=== PATIENT | female | born 1955 | race Two or more races ===

== ENCOUNTER 2024-10-24 11:37 | Inpatient (IN) | payer MEDICARE, OTHER ==
[~2024-10-24] VITALS: Ht 165.1 cm; Wt 56.3 kg
--- NOTE | 2024-10-24 11:51 | ED.PDOC ---
History of Present Illness HPI Comments 68-year-old female who comes in with chief complaint of infection to the left foot. The patient states that the pain has been worsening and the ulceration has been worsening over the past two weeks. There has been no nausea, vomiting or diarrhea. 911 was called and the patient was transported to our facility. EN route, the patient received Tylenol 1 g IV piggyback for the pain. She states that approximately three weeks ago she accidentally scraped her left foot and the wound has been worsening. She denies being a diabetic. Chief Complaint: Wound Check Time Seen by MD: 11:43 Reviewed Notes: Nurses Notes, Sprayer Insecticide Notes, Medications, Allergies (No allergies to medications) Allergies: Coded Allergies: NO KNOWN ALLERGIES (Unverified , 10/24/24) Information Source: Patient, Emergency Med Personnel Mode of Arrival: EMS Severity: Moderate Timing: Weeks Duration: Since onset Prehospital treatment: IVF Location: Left foot infected ulceration and pain Associated signs and symptoms No shortness a breath or fever Past Medical History PAST MEDICAL HISTORY: COPD, HTN Surgical History: Hysterectomy Surgical History (Other): 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 OFFICE ASSOCIATE History: Denies all OFFICE ASSOCIATE Hx Family History Family History: Family hx of HTN Family History (Other): Pulmonary embolism Social History Smoker: Other (VAPE) Alcohol: Occasionally Drugs: Marijuana Lives In: Home Constitutional: denies: chills, diaphoresis, fatigue, fever, malaise, sweats, weakness, others EENTM: denies: blurred vision, double vision, ear bleeding, ear discharge, ear drainage, ear pain, ear ringing, eye pain, eye redness, hearing loss, mouth pain, mouth swelling, nasal discharge, nose bleeding, nose congestion, nose pain, photophobia, tearing, throat pain, throat swelling, voice changes, others Respiratory: denies: cough, hemoptysis, orthopnea, SOB at rest, shortness of breath, SOB with excertion, stridor, wheezing, others Cardiovascular: denies: chest pain, dizzy spells, diaphoresis, Dyspnea on exertion, edema, irregular heart beat, left arm pain, lightheadedness, palpitations, PND, syncope, others Gastrointestinal: denies: abdomen distended, abdominal pain, blood streaked bowels, constipated, diarrhea, dysphagia, difficulty swallowing, hematemesis, melena, nausea, poor appetite, poor fluid intake, rectal bleeding, rectal pain, vomiting, others Genitourinary: denies: abnormal vagina bleeding, burning, dyspareunia, dysuria, flank pain, frequency, hematuria, incontinence, pain, , vagina discharge, urgency, others Neurological: denies: dizziness, fainting, headache, left sided numbness, left sided weakness, numbness, paresthesia, pre-existing deficit, right sided numbness, right sided weakness, seizure, speech problems, tingling, tremors, weakness, others Musculoskeletal: reports: others (Left foot infection); denies: back pain, gout, joint pain, joint swelling, muscle pain, muscle stiffness, neck pain Integumetry: denies: bruises, change in color, change in hair/nails, dryness, laceration, lesions, lumps, rash, wounds, others Allergic/Immunocompromised: denies: Difficulty Healing, Frequent Infections, Hives, Itching, others Hematologic/Lymphatic: denies: anemia, blood clots, easy bleeding, easy bruising, swollen glands, others Endocrine: denies: excessive hunger, excessive sweating, excessive thirst, excessive urination, flushing, intolerance to cold, intolerance to heat, unexplained weight gain, unexplained weight loss, others Psychiatric: denies: anxiety, bipolar disorder, depression, hopeless, panic disorder, schizophrenia, sleepless, suicidal, others Physical Exam General Appearance: Moderate Distress HEENT: Normal ENT Inspection, Pharynx Normal, TMs Normal Neck: Full Range of Motion, Non-Tender, Normal, Normal Inspection Respiratory: Chest Non-Tender, Lungs Clear, No Accessory Muscle Use, No Respiratory Distress, Normal Breath Sounds Cardiovascular: No Edema, No JVD, No Murmur, No Gallop, Normal Peripheral Pulses, Regular Rate/Rhythm Breast Exam: Deferred Gastrointestinal: No Organomegaly, Non Tender, No Pulsatile Mass, Normal Bowel Sounds, Soft Genitalia: Deferred Pelvic: Deferred Rectal: Deferred Extremities: No calf tenderness, Normal capillary refill, No pedal edema, Other (Left foot open ulceration to the dorsum) Musculoskeletal : Apperance: Normal Neurologic: Alert, 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 Was a procedure done?: No Differential Dx Considerations may include: Abscess, osteomyelitis, cellulitis X-Ray, Labs, Meds, VS Vital Signs Date Time Temp Pulse Resp B/P (MAP) Pulse Ox O2 Delivery O2 Flow Rate FiO2 10/24/24 11:54 Room Air* 0 21 10/24/24 11:47 98.6 84 16 187/95 (125) 96 98.6 Lab Test 10/24/24 12:02 Range/Units White Blood Count 8.3 4.4-10.8 10^3/uL Red Blood Count 3.78 L 4.0-5.20 10^6/uL Hemoglobin 11.9 L 12.2-16.2 g/dL Hematocrit 34.0 L 36.0-46.0 % Mean Corpuscular Volume 89.9 80.0-100.0 fL Mean Corpuscular Hemoglobin 31.6 28.0-32.0 pg Mean Corpuscular Hemoglobin Concent 35.1 32.0-36.0 g/dL Red Cell Distribution Width 12.7 11.8-14.3 % Platelet Count 475 H 140-450 10^3/uL Mean Platelet Volume 6.3 L 6.9-10.8 fL Neutrophils (%) (Auto) 78.2 37.0-80.0 % Lymphocytes (%) (Auto) 11.7 10.0-50.0 % Monocytes (%) (Auto) 6.6 0.0-12.0 % Eosinophils (%) (Auto) 3.0 0.0-7.0 % Basophils (%) (Auto) 0.5 0.0-2.0 % Neutrophils # (Auto) 6.5 1.6-8.6 10 ^3/uL Lymphocytes # (Auto) 1.0 0.4-5.4 10 ^3/uL Monocytes # (Auto) 0.5 0-1.3 10 ^3/uL Eosinophils # (Auto) 0.3 0-0.8 10 ^3/uL Basophils # (Auto) 0 0-0.2 10 ^3/uL Nucleated Red Blood Cells 0.0 % Erythrocyte Sedimentation Rate 90 H 0-20 mm/hr Sodium Level 135 L 136-145 mmol/L Potassium Level 4.1 3.5-5.1 mmol/L Chloride Level 104 98-107 mmol/L Carbon Dioxide Level 26 20-31 mmol/L Anion Gap 5 5-15 Blood Urea Nitrogen 17 9-23 mg/dL Creatinine 0.64 0.550-1.02 mg/dL Glomerular Filtration Rate Calc 97 >90 mL/min BUN/Creatinine Ratio 26.6 H 10.0-20.0 Serum Glucose 99 74-106 mg/dL Calcium Level 10.7 H 8.7-10.4 mg/dL IV Hep-Lock was established. Left foot cat scan was done which shows: IMPRESSION: Diffuse subcutaneous soft-tissue edema and swelling; possibly cellulitis. The patient's CBC shows mild anemia with a hemoglobin of 11.9 The chemistry panel is within normal limits The ESR is 90 which significantly elevated The patient was started on clindamycin The patient was being admitted to the hospitalist A wound consult was also ordered on this patient. Images Reviewed?: Images reviewed and evaluated by me Time of 1ST Reevaluation: 11:52 Reevaluation 1ST: Unchanged Patient Education/Counseling: Diagnosis, Treatment, Prognosis Family Education/Counseling: No Family Present Departure 1 Departure Time of Disposition: 13:52 Impression: Primary Impression: Cellulitis of left foot Additional Impression: Nonhealing skin ulcer Qualified Codes: L98.499 - Non-pressure chronic ulcer of skin of other sites with unspecified severity Disposition: ADMITTED INPATIENT Admit to: Med Surg Condition: Fair Critical Care Note Critical Care Time?: No Stability Stability form required: Yes Unstable for transfer: ED Physician Assesment (Clinical assesment) Heart Score Heart Score: Heart Score Response (Comments) Value History N/A 0 EKG N/A 0 Age N/A 0 Risk Factors N/A 0 Troponin N/A 0 Total 0 I personally scribed for ТАТЬЯНА MALONEY MD ([email or web address]) on 10/24/24 at 13:26. Electronically submitted by Chivo Mo [email or web address]). ТАТЬЯНА MALONEY MD Oct 24, 2024 11:51
[2024-10-24 12:15] LABS: Neutrophils # (auto) 6.5 10 ^3/uL (1.6-8.6); Neutrophils % (auto) 78.2 % (37.0-80.0)
[2024-10-24 12:17] LABS: Basophils # (auto) 0 10 ^3/uL (0-0.2); Basophils % (auto) 0.5 % (0.0-2.0); Eosinophils # (auto) 0.3 10 ^3/uL (0-0.8); Hemoglobin 11.9 g/dL (12.2-16.2); Lymphocytes % (auto) 11.7 % (10.0-50.0); Mean Corpuscular Hemoglobin 31.6 pg (28.0-32.0); Mean Corpuscular Hgb Conc. 35.1 g/dL (32.0-36.0); Mean Corpuscular Volume 89.9 fL (80.0-100.0); Monocytes # (auto) 0.5 10 ^3/uL (0-1.3); Monocytes % (auto) 6.6 % (0.0-12.0); Platelet Count (auto) 475 10^3/uL (140-450); Red Blood Cells 3.78 10^6/uL (4.0-5.20); Red Cell Distribution Width 12.7 % (11.8-14.3); White Blood Cell 8.3 10^3/uL (4.4-10.8)
[2024-10-24 12:18] LABS: Chloride 104 mmol/L (98-107); Potassium 4.1 mmol/L (3.5-5.1)
[2024-10-24 12:19] LABS: Anion Gap 5 (5-15); Carbon Dioxide 26 mmol/L (20-31)
[2024-10-24 12:24] LABS: BUN/Creatinine Ratio 26.6 (10.0-20.0); Blood Urea Nitrogen 17 mg/dL (9-23); Glucose 99 mg/dL (74-106)
[2024-10-24 12:36] LABS: Calcium 10.7 mg/dL (8.7-10.4); Sodium 135 mmol/L (136-145)
[2024-10-24 12:50] LABS: Erythrocyte Sedimentation Rate 90 mm/hr (0-20)
--- NOTE | 2024-10-24 13:36 | DVH ---
EXAMINATION: CT CT L FOOT WO CONTRAST INDICATION: infection COMPARISON: None TECHNIQUE: CT of the left foot was performed without contrast. Volume transverse images were obtained reconstructed in multiple planes using bone and soft tissue algorithms. Radiation Dose Information: CT Dose: CTDI volume is 7.75 mGy. Dose-length product is 176.93 mGy*cm FINDINGS: The alignment is normal. The joint spaces are normal. There is no fracture, dislocation, or focal osseous lesions. There are no joint effusions. Diffuse subcutaneous soft-tissue edema and swelling. IMPRESSION: Diffuse subcutaneous soft-tissue edema and swelling; possibly cellulitis.
[2024-10-24] MEDS: SODIUM CHLORIDE 0.9% 500 ML IV ONE ×2 (15:39→16:45)
[2024-10-24] MEDS: MORPHINE SULFATE 4 MG/ML SYR/VIAL IV ONE (15:43)
[2024-10-24] MEDS: ONDANSETRON HCL 4 MG/2 ML VIAL IV ONE (15:43)
[2024-10-24] MEDS: CLINDAMYCIN 600MG IV 50 ML IV ONE (15:43)
[2024-10-24] MEDS ORDERED: DOCUSATE SOD 100 MG CAP PO PRN (16:45)
--- NOTE | 2024-10-24 16:50 | DVHHP2 ---
History of Present Illness Reason for Visit: Foot wound History of Present Illness Jelly Negro is a 68-year-old female with past medical history of hypertension, hyperlipidemia, and bowel resection surgery with colostomy, who came in for wound to her left foot. Patient states the wound began a couple weeks ago with a blister that rubbed on her shoe and opened up. She did a Tele health appointment today due to the wound worsening, and was told to go to the hospital. the left foot is swollen, red, and has a lateral open wound covered with slough. Past Surgical History: Hysterectomy, Other (bowel resection with colostomy) Smoke: <1 pack per day (vap) ALCOHOL: occassional Drugs: Marijuana Lives: with Family Domestic Violence: Neg Review of Systems Constitutional: No: Fever, Chills, Sweats, Weakness, Malaise, Other Eyes: No: Pain, Vision change, Conjunctivae inflammation, Eyelid inflammation, Other, Redness ENT: No: Ear pain, Ear discharge, Nose pain, Nose discharge, Nose congestion, Mouth pain, Mouth swelling, Throat pain, Throat swelling, Other Respiratory: No: Cough, Dry, Shortness of breath, SOB with excertion, Wheezing, Hemoptysis, Pleuritic Pain, Sputum, Wheezing, Other Gastrointestinal: No: Nausea, Vomiting, Abdominal Pain, Diarrhea, Constipation, Melena, Hematochezia, Other Genitourinary: No Dysuria, No Frequency, No Incontinence, No Hematuria, No Retention, No Other Musculoskeletal: foot pain (left); No: other, neck pain, shoulder pain, arm pain, back pain, hand pain, leg pain Skin: Other (left foot swelling, redness, open wound with slough); No: Rash, Lesions, Jaundice, Bruising Neurological: No: Weakness, Numbness, Incoordination, Change in speech, Confusion, Seizures, Other Allergies: Coded Allergies: NO KNOWN ALLERGIES (Unverified , 10/24/24) Exam Vital Signs Vital Signs Date Time Temp Pulse Resp B/P (MAP) Pulse Ox O2 Delivery O2 Flow Rate FiO2 10/24/24 11:54 Room Air* 0 21 10/24/24 11:47 98.6 84 16 187/95 (125) 96 98.6 General Appearance: Alert, Oriented X3, Cooperative, mild distress HEENT: Atraumatic, PERRLA, Mucous membr. moist/pink Respiratory: Clear to auscultation, Normal air movement Cardiovascular: Regular rate, Normal S1, Normal S2, No murmurs Abdominal: Normal bowel sounds, Soft, No tenderness, No hepatospenomegaly Extremities: No clubbing, No cyanosis, Other (left foot swelling, redness, open wound with slough) Skin: No rashes Neuro: Normal gait, Normal speech Psych/Mental Status: Mental status NL, Mood NL Labs/Xrays Labs Test 10/24/24 12:02 Range/Units White Blood Count 8.3 4.4-10.8 10^3/uL Red Blood Count 3.78 L 4.0-5.20 10^6/uL Hemoglobin 11.9 L 12.2-16.2 g/dL Hematocrit 34.0 L 36.0-46.0 % Mean Corpuscular Volume 89.9 80.0-100.0 fL Mean Corpuscular Hemoglobin 31.6 28.0-32.0 pg Mean Corpuscular Hemoglobin Concent 35.1 32.0-36.0 g/dL Red Cell Distribution Width 12.7 11.8-14.3 % Platelet Count 475 H 140-450 10^3/uL Mean Platelet Volume 6.3 L 6.9-10.8 fL Neutrophils (%) (Auto) 78.2 37.0-80.0 % Lymphocytes (%) (Auto) 11.7 10.0-50.0 % Monocytes (%) (Auto) 6.6 0.0-12.0 % Eosinophils (%) (Auto) 3.0 0.0-7.0 % Basophils (%) (Auto) 0.5 0.0-2.0 % Neutrophils # (Auto) 6.5 1.6-8.6 10 ^3/uL Lymphocytes # (Auto) 1.0 0.4-5.4 10 ^3/uL Monocytes # (Auto) 0.5 0-1.3 10 ^3/uL Eosinophils # (Auto) 0.3 0-0.8 10 ^3/uL Basophils # (Auto) 0 0-0.2 10 ^3/uL Nucleated Red Blood Cells 0.0 % Erythrocyte Sedimentation Rate 90 H 0-20 mm/hr Sodium Level 135 L 136-145 mmol/L Potassium Level 4.1 3.5-5.1 mmol/L Chloride Level 104 98-107 mmol/L Carbon Dioxide Level 26 20-31 mmol/L Anion Gap 5 5-15 Blood Urea Nitrogen 17 9-23 mg/dL Creatinine 0.64 0.550-1.02 mg/dL Glomerular Filtration Rate Calc 97 >90 mL/min BUN/Creatinine Ratio 26.6 H 10.0-20.0 Serum Glucose 99 74-106 mg/dL Calcium Level 10.7 H 8.7-10.4 mg/dL EXAMINATION: CT CT L FOOT WO CONTRAST FINDINGS: The alignment is normal. The joint spaces are normal. There is no fracture, dislocation, or focal osseous lesions. There are no joint effusions. Diffuse subcutaneous soft-tissue edema and swelling. IMPRESSION: Diffuse subcutaneous soft-tissue edema and swelling; possibly cellulitis. Assessment/Plan Assessment/Plan Assessment: Cellulitis of left foot, R/O osteomyelitis, COPD, Hypertension, Plan: Admit to Med-Surg, Podiatry consult, Wound care consult, Wound culture, IV antibiotics, IV hydration, MRI foot, Plan discussed with: Patient Date of Service: Oct 24, 2024 Billing Provider: DEEPIKA GAN Common Visit Codes: [id number] INP/OBS CARE (MOD) DEEPIKA GAN Oct 24, 2024 16:50
--- NOTE | 2024-10-24 17:51 | DVH ---
EXAM: MRI MRI L FOOT WO CONTRAST; DATE: 10/24/2024 05:12 PM HISTORY: R/O OM VS ABSCESS COMPARISON: CT CT L FOOT WO CONTRAST on DOS: 10/24/24 TECHNIQUE: Multiplanar, multisequence MRI was performed. FINDINGS: There is significant soft tissue edema and swelling involving the ankle and lateral aspect of the arjun t Bones are severely osteopenic. There are sclerotic changes involving the talus which are abnormal but there are no destructive changes. There appears to be a soft tissue ulcer or wound adjacent to the great toe. IMPRESSION: 1. Significant cellulitis with sclerosis involving the talus there is a large soft tissue wound adjac ent to the great toe. I bones are generally osteopenic. I would recommend follow-up MRI examination to eliminate the possibility osteomyelitis.
[2024-10-24] MEDS: HYDROcodone-ACET 5/325MG TAB PO PRN (21:28)
[2024-10-24 21:46] VITALS: RESP 18; O2SAT 98
[2024-10-24] MEDS: CLINDAMYCIN 600MG IV 50 ML IV SCH (21:53)
[2024-10-24] MEDS: hydrALAZINE HCL 20 MG/ML VL IV PRN (22:26)
[2024-10-25 02:30] VITALS: RESP 10; O2SAT 98
[2024-10-25] MEDS: ONDANSETRON HCL 4 MG/2 ML VIAL IV PRN (03:45)
[2024-10-25] MEDS: MORPHINE SULFATE INJ 2 MG/ml SYRG IV PRN (03:45)
[2024-10-25] MEDS: ACETAMINOPHEN 325 MG TAB PO PRN (03:46)
[2024-10-25 06:07] LABS: Basophils # (auto) 0 10 ^3/uL (0-0.2); Basophils % (auto) 0.3 % (0.0-2.0); Eosinophils # (auto) 0.4 10 ^3/uL (0-0.8); Eosinophils % (auto) 4.5 % (0.0-7.0); Hematocrit 31.2 % (36.0-46.0); Hemoglobin 10.3 g/dL (12.2-16.2); Lymphocytes # (auto) 1.5 10 ^3/uL (0.4-5.4); Lymphocytes % (auto) 18.4 % (10.0-50.0); Mean Corpuscular Volume 90.9 fL (80.0-100.0); Monocytes # (auto) 0.7 10 ^3/uL (0-1.3); Monocytes % (auto) 8.5 % (0.0-12.0); Neutrophils # (auto) 5.4 10 ^3/uL (1.6-8.6); Neutrophils % (auto) 68.3 % (37.0-80.0); Platelet Count (auto) 406 10^3/uL (140-450); Red Blood Cells 3.43 10^6/uL (4.0-5.20); Red Cell Distribution Width 12.9 % (11.8-14.3); White Blood Cell 7.9 10^3/uL (4.4-10.8)
[2024-10-25 06:15] LABS: Albumin 3.9 g/dL (3.2-4.8); Alkaline Phosphatase 60 U/L (46-116); Anion Gap 6 (5-15); Bilirubin, Total 0.4 mg/dL (0.2-1.0); Blood Urea Nitrogen 15 mg/dL (9-23); Calcium 9.9 mg/dL (8.7-10.4); Carbon Dioxide 24 mmol/L (20-31); Glucose 95 mg/dL (74-106); Sodium 138 mmol/L (136-145); Total Protein 6.5 g/dL (5.7-8.2)
[2024-10-25 06:16] LABS: Alanine Aminotransferase < 9 U/L (7-40); Aspartate Aminotransferase < 8 U/L (13-40); Chloride 108 mmol/L (98-107)
[2024-10-25 08:12] LABS: Magnesium 1.8 mg/dL (1.6-2.6)
[2024-10-25] MEDS: POTASSIUM CHL 20 Meq TABLET PO ONE (08:16)
[2024-10-25 08:29] LABS: INR 1.08 (0.9-1.15); Partial Thromboplastin Time 31.5 SEC (24.5-34.5); Prothrombin Time 11.4 sec (9.3-11.8)
[2024-10-25 08:54] LABS: % Iron Saturation 11.7 % (15-50)
[2024-10-25 08:56] LABS: Urine Bacteria FEW /hpf (None Seen); Urine Blood 1+ /uL (Negative); Urine Clarity Turbid (Clear); Urine Color Colorless (Yellow); Urine Protein, UAD Negative (Negative); Urine Specific Gravity 1.012 (1.001-1.035); Urine Squamous Epithelial Cell None Seen /hpf (<5); Urine Urobilinogen Normal (Negative); Urine WBC 415 /HPF (0-5); Urine WBC Clumps PRESENT /hpf (None Seen); Urine pH 6.5 (5.0-9.0)
[2024-10-25] MEDS: FLORASTOR (S. BOULARDII) 250 MG CAP PO SCH (10:51)
--- NOTE | 2024-10-25 12:12 | DVH ---
Bilateral lower extremity venous duplex Clinical History: Pain dvt Comparison: None Technique: Duplex Doppler evaluation of the deep venous systems of both lower extremities from the common femora l veins to the popliteal veins including color Doppler and spectral/pulsed waveform analysis was perf ormed. Findings: RIGHT SIDE: The common femoral vein demonstrates appropriate compressibility and waveform variability. There is compressibility/patency of the great saphenous vein at the proximal thigh. The femoral vein demonstrates appropriate compressibility and waveform variability. The deep femoral vein demonstrates appropriate compressibility and waveform variability. The popliteal vein demonstrates appropriate compressibility and waveform variability. There is normal compressibility at the tibioperoneal trunk. LEFT SIDE: The common femoral vein demonstrates appropriate compressibility and waveform variability. There is compressibility/patency of the great saphenous vein at the proximal thigh. The femoral vein demonstrates appropriate compressibility and waveform variability. The deep femoral vein demonstrates appropriate compressibility and waveform variability. The popliteal vein demonstrates appropriate compressibility and waveform variability. There is normal compressibility at the tibioperoneal trunk. Impression: No right or left femoropopliteal venous thrombosis.
--- NOTE | 2024-10-25 14:18 | DVHINCON2 ---
Date Seen: Oct 25, 2024 Reason for Consultation Left foot wound History of Present Illness Jelly Negro is a 68-year-old female with past medical history of hypertension, hyperlipidemia, and bowel resection surgery with colostomy, who came in for wound to her left foot. Patient states the wound began a couple wee ks ago with a blister that rubbed on her shoe and opened up. She did a [facility] health appointment today due to the wound worsening, and was told to go to the hospital. the left foot is swollen, red, and has a lateral open wound covered with slough. Past Medical History See H&P Past Surgical History See H&P Allergies: Coded Allergies: NO KNOWN ALLERGIES (Unverified , 10/24/24) Current Medications Current Medications Medications (Trade) Dose Ordered Sig/Tony Route PRN Reason Start Time Stop Time Status Last Admin Acetaminophen/ Hydrocodone Bitart ([place] 5/325MG Tab) 1 tab Q4HP PRN PO MODERATE PAIN (4-6 PAIN SCALE) 10/24/24 16:45 10/25/24 08:26 Ondansetron HCl (Zofran) 4 mg Q4HP PRN IV NAUSEA / VOMITING 10/24/24 16:45 10/25/24 03:45 Docusate Sodium (Colace Capsule) 100 mg BIDPRN PRN PO FOR CONSTIPATION 10/24/24 16:45 Acetaminophen (Tylenol Tablet) 650 mg Q6HP PRN PO PAIN SCALE 1-3 OR TEMP>100.4 10/24/24 16:45 10/25/24 03:46 Clindamycin Phosphate 50 ml @ 50 mls/hr Q8HR IV 10/24/24 22:00 10/24/24 21:53 Hydralazine HCl (Apresoline Injection) 10 mg Q6HP PRN IV SBP>150 10/24/24 21:45 10/25/24 07:52 DC 10/25/24 02:09 Morphine Sulfate 2 mg Q6HPRN PRN IV SEVERE PAIN (7-10 PAIN SCALE) 10/25/24 03:00 10/25/24 11:06 Saccharomyces Boulardii (Florastor) 250 mg DAILY PO 10/25/24 10:00 10/25/24 10:51 Hydralazine HCl (Apresoline Injection) 10 mg Q6HP PRN IV SBP>160 10/25/24 08:00 Vital Signs Vital Signs Date Time Temp Pulse Resp B/P (MAP) Pulse Ox O2 Delivery O2 Flow Rate FiO2 10/25/24 12:00 84 17 161/77 10/25/24 11:00 99 10/25/24 08:00 Room Air* 0 21 10/25/24 08:00 97.7 97.7 Physical Exam Dermatological: Skin is dry with mild erythema and some maceration around the wound site No gross deformities noted Mild non-pitting edema present bilaterally Wound: Location: Lateral foot. Measures: 5 cm in length, 4 cm in width, and 0.5 cm in depth. Depth: Full thickness Base: Mix of granulation/slough Drainage: None Odor: None Periwound: Intact Vascular: Dorsalis pedis and posterior tibial pulses are 1+ bilaterally Capillary refill is under 2 seconds Skin temperature is warm bilaterally Neurologic: Protective sensation is absent on the plantar forefoot bilaterally Monofilament testing reveals decreased sensation in multiple plantar sites Musculoskeletal: Range of motion at the ankle and MTP joints is within normal limits. Strength is 5/5 in all tested muscle groups. Gait is antalgic due to offloading of the affected limb. Labs/Diagnostic Data Labs Test 10/25/24 08:15 10/25/24 05:17 10/24/24 17:56 10/24/24 12:02 Range/Units Urine Color Colorless Yellow Urine Clarity Turbid H Clear Urine pH 6.5 5.0-9.0 Urine Specific [place] 1.012 1.001-1.035 Urine Protein Negative Negative Urine Ketones Negative Negative Urine Blood 1+ H Negative /uL Urine Nitrite 2+ H Negative Urine Bilirubin Negative Negative Urine Urobilinogen Normal Negative mg/dL Urine Leukocyte Esterase 3+ Negative /uL Urine RBC 36 0 - 4 /hpf Urine WBC Clumps Present None Seen /hpf Urine Microscopic WBC 415 H 0-5 /HPF Urine Squamous Epithelial Cells None seen <5 /hpf Urine Bacteria Few H None Seen /hpf Urine Glucose Normal Normal mg/dL White Blood Count 7.9 4.4-10.8 10^3/uL Red Blood Count 3.43 L 4.0-5.20 10^6/uL Hemoglobin 10.3 L 12.2-16.2 g/dL Hematocrit 31.2 L 36.0-46.0 % Mean Corpuscular Volume 90.9 80.0-100.0 fL Mean Corpuscular Hemoglobin 30.0 28.0-32.0 pg Mean Corpuscular Hemoglobin Concent 33.0 32.0-36.0 g/dL Red Cell Distribution Width 12.9 11.8-14.3 % Platelet Count 406 140-450 10^3/uL Mean Platelet Volume 6.5 L 6.9-10.8 fL Neutrophils (%) (Auto) 68.3 37.0-80.0 % Lymphocytes (%) (Auto) 18.4 10.0-50.0 % Monocytes (%) (Auto) 8.5 0.0-12.0 % Eosinophils (%) (Auto) 4.5 0.0-7.0 % Basophils (%) (Auto) 0.3 0.0-2.0 % Neutrophils # (Auto) 5.4 1.6-8.6 10 ^3/uL Lymphocytes # (Auto) 1.5 0.4-5.4 10 ^3/uL Monocytes # (Auto) 0.7 0-1.3 10 ^3/uL Eosinophils # (Auto) 0.4 0-0.8 10 ^3/uL Basophils # (Auto) 0 0-0.2 10 ^3/uL Nucleated Red Blood Cells 0.0 % Prothrombin Time 11.4 9.3-11.8 sec Prothrombin Time INR 1.08 0.9-1.15 Activated Partial Thromboplast Time 31.5 24.5-34.5 SEC Sodium Level 138 136-145 mmol/L Potassium Level 3.0 L 3.5-5.1 mmol/L Chloride Level 108 H 98-107 mmol/L Carbon Dioxide Level 24 20-31 mmol/L Anion Gap 6 5-15 Blood Urea Nitrogen 15 9-23 mg/dL Creatinine 0.60 0.550-1.02 mg/dL Glomerular Filtration Rate Calc 98 >90 mL/min BUN/Creatinine Ratio 25.0 H 10.0-20.0 Serum Glucose 95 74-106 mg/dL Hemoglobin A1c 5.4 <5.7 % A1C Calcium Level 9.9 8.7-10.4 mg/dL Magnesium Level 1.8 1.6-2.6 mg/dL Iron Level 23 L 50-170 ug/dL Total Iron Binding Capacity 196 L 250-425 ug/dL Percent Iron Saturation 11.7 L 15-50 % Total Bilirubin 0.4 0.2-1.0 mg/dL Aspartate Amino Transferase (AST) < 8 L 13-40 U/L Alanine Aminotransferase (ALT) < 9 7-40 U/L Alkaline Phosphatase 60 46-116 U/L Total Protein 6.5 5.7-8.2 g/dL Albumin 3.9 3.2-4.8 g/dL Triglycerides Level 87 < 150 mg/dL Cholesterol Level 107 < 200 mg/dL LDL Cholesterol 68 < 100 mg/dL HDL Cholesterol 26 L 40-59 mg/dL Vitamin D 25-Hydroxy 36.5 30.0-100 ng/mL Thyroid Stimulating Hormone (TSH) 6.23 H 0.55-4.78 uIU/mL Free Thyroxine (T4) Calculated 1.47 0.89-1.76 ng/dL Lactic Acid Level 0.6 0.4-2.0 mmol/L Erythrocyte Sedimentation Rate 90 H 0-20 mm/hr Problems(with codes): (1) Nonhealing skin ulcer (2) Cellulitis of left foot Plan/Recommendation ASSESSMENT: Patient is a 68 year old seen on the floor for a worsening ulcer PLAN: - The patients chart was reviewed, clinical findings were discussed with the patient, the etiologies of the conditions were discussed in detail, and a treatment plan was agreed to at this time, with both oral and written instructions provided. - reviewed advanced imaging - no surgical indication at this point - tinea IV antibiotic - would benefit from outpatient wound care - dress with Medihoney All questions were answered and concerns addressed to the patient's satisfaction. The patient was given the phone number to the clinic and was told how to make contact with the clinic should any concerns or questions arise. P atient understands that if any questions or concerns arise prior to the next appointment, we should be contacted immediately. FOLLOW-UP: Continue to follow while inpatient Plan discussed with: Patient Date of Service: Oct 25, 2024 Billing Provider: JIMENEZ MUÑIZ DPM Common Visit Codes: CONSULT ONLY Consultation Codes: [id number] CONSULT <80MIN JIMENEZ MUÑIZ DPM Oct 25, 2024 14:18
[2024-10-25] MEDS: CLINDAMYCIN 300MG IV 50 ML IV SCH ×2 (14:34→20:55)
--- NOTE | 2024-10-25 16:09 | DVHPNRES ---
Progress Note Date Seen: Oct 25, 2024 Resident Creating Document: MAUREEN WASHINGTON RESIDENT Medical Necessity Reason Pt with a Central, PICC or Fol: No Subjective Review of Systems Patient is 68-year-old female with past medical history of hypertension, hyperlipidemia, bowel resection surgery with colostomy, vaginal fistula who presented to hospital with a chief complaint of left foot ulcer with purulent drainage. As per patient she had this wound for a few weeks which started from blister and it open to wound. Given worsening wound, patient came to the hospital for treatment. Past medical history: Hypertension, hyperlipidemia, vaginal fistula, colostomy bag with bowel resection Patient seen and examined at bedside. Continued to complaining of lower extremity mild swelling with purulent draining wound. Patient also complaining of mild foot pain. Denying any other symptoms at this point. Left foot is swollen and red with open wound with purulent discharge. Objective vital signs Vital Sign Date Time Temp Pulse Resp B/P (MAP) Pulse Ox O2 Delivery O2 Flow Rate FiO2 10/25/24 12:00 84 17 161/77 10/25/24 11:00 99 10/25/24 08:00 Room Air* 0 21 10/25/24 08:00 97.7 97.7 medications Current Medications Medications Dose Ordered Sig/Tony Route Start Time Stop Time Status Last Admin Dose Admin Acetaminophen/ Hydrocodone Bitart 1 tab Q4HP PRN PO 10/24/24 16:45 10/25/24 08:26 1 TAB Ondansetron HCl 4 mg Q4HP PRN IV 10/24/24 16:45 10/25/24 03:45 4 MG Docusate Sodium 100 mg BIDPRN PRN PO 10/24/24 16:45 Acetaminophen 650 mg Q6HP PRN PO 10/24/24 16:45 10/25/24 03:46 650 MG Morphine Sulfate 2 mg Q6HPRN PRN IV 10/25/24 03:00 10/25/24 11:06 2 MG Saccharomyces Boulardii 250 mg DAILY PO 10/25/24 10:00 10/25/24 10:51 250 MG Hydralazine HCl 10 mg Q6HP PRN IV 10/25/24 08:00 Clindamycin Phosphate 50 ml @ 50 mls/hr 1430,1530 IV 10/25/24 14:30 10/25/24 16:29 10/25/24 15:37 50 MLS/HR Clindamycin Phosphate 50 ml @ 50 mls/hr 0600,0700,1400,1500,2200,2300 IV 10/25/24 22:00 Examination General Appearance: Cooperative. Well developed. Well nourished. NAD Head Exam: Normal inspection Neck Exam: Normal inspection. Non-tender. Normal alignment Pulmonary/Respiratory: Chest non-tender. Clear bilateral breath sounds Cardiovascular/Chest: Regular rate and rhythm. No murmurs. No JVD. Peripheral Pulses: 2+ Radial (R). 2+ Radial (L). 2+ Pedal (R). 2+ Pedal (L) Abdominal Exam: Normal bowel sounds. Soft. Nontender. No hepatospenomegaly. No masses Ankle Exam: Negative ankle edema Lower extremities: 1+ bilateral lower extremity edema, left lower extremity foot ulcer with purulent discharge, capillary refill less than 2 seconds, presence of bilateral pedal pulse. Neuro/Mental Status: A&O x4. Coherent Thoughts/Psych: Normal thought pattern. Appropriate mood and affect. Good judgement and insight Appearance: In no acute distress Skin Exam: Normal inspection. Normal color. Warm. Dry laboratory and microbiology Laboratory Tests 10/25/24 05:17 Test 10/25/24 05:17 Range/Units Serum Glucose 95 74-106 mg/dL Problem List/Assessment/Plan Problem List/Assessment/Plan Left lower extremity cellulitis Nonhealing left foot ulcer Ruled out lower extremity DVT Rule out osteomyelitis Hypokalemia Iron-deficiency anemia Subclinical hypothyroidism UTI Plan/recommendation -continue with IV clindamycin, given patient is not in sepsis or shock broad- spectrum antibiotic was not initiated. -podiatry consultation: Continue with IV antibiotic, wound care, no acute surgical intervention indicated as per Podiatry. -dressing with medi honey -reviewed CT scan of lower extremity and MRI. -pending urine culture -replenish potassium: Potassium tablets 60 mEq given. Repeat BMP tomorrow. -counseled on possible side effect of use of clindamycin including C diff. -pain management: [place] and morphine as needed. -PUD prophylaxis with Protonix -DVT prophylaxis with Lovenox Goals of care discussed greater than 22 minutes. Plan discussed with Dr. Alonso Plan discussed with: Patient, Other (RN) My Orders My Orders Orders - MAUREEN WASHINGTON RESIDENT Procedure Category Date Status Time Florastor (S. PHA 10/25/24 In Process Boulardii) (Florastor) 10:00 Blood Culture CLYDE 10/25/24 In Process 07:50 Hydralazine Injection PHA 10/25/24 In Process (Apresoline Inject 08:00 Urine Bacterial CLYDE 10/25/24 In Process Culture 10:03 Bilat Lower Dvt US 10/25/24 Resulted 10:37 Cleanse Wound With JONATHAN 10/25/24 In Process Wound Clean 11:18 * Dietary Consult CONS 10/25/24 Transmitted 13:51 Date of Service: Oct 25, 2024 Billing Provider: NEEL ALONSO MD Common Visit Codes: [id number] INP/OBS CARE(HIGH) MAUREEN WASHINGTON RESIDENT Oct 25, 2024 16:09 NEEL ALONSO MD Oct 26, 2024 13:14
[2024-10-25 18:27] VITALS: RESP 18; O2SAT 97
[2024-10-25 21:00] VITALS: BP 179/87; PULSE 95; RESP 19; TEMP 98.3; O2SAT 99
[2024-10-26] VITALS (8 sets, daily range): BP systolic 145–160; BP diastolic 69–90; PULSE 66–107; RESP 16–19; TEMP 97.6–98.3; O2SAT 97–99
[2024-10-26] MEDS: hydrALAZINE HCL 20 MG/ML VL IV PRN (05:18)
[2024-10-26 07:14] LABS: Basophils # (auto) 0 10 ^3/uL (0-0.2); Basophils % (auto) 0.3 % (0.0-2.0); Eosinophils # (auto) 0.4 10 ^3/uL (0-0.8); Eosinophils % (auto) 4.9 % (0.0-7.0); Hematocrit 31.7 % (36.0-46.0); Hemoglobin 10.8 g/dL (12.2-16.2); Lymphocytes % (auto) 11.6 % (10.0-50.0); Mean Corpuscular Hemoglobin 30.8 pg (28.0-32.0); Mean Corpuscular Hgb Conc. 34.1 g/dL (32.0-36.0); Mean Corpuscular Volume 90.3 fL (80.0-100.0); Monocytes # (auto) 0.8 10 ^3/uL (0-1.3); Monocytes % (auto) 8.7 % (0.0-12.0); Neutrophils # (auto) 6.6 10 ^3/uL (1.6-8.6); Neutrophils % (auto) 74.5 % (37.0-80.0); Platelet Count (auto) 404 10^3/uL (140-450); Red Blood Cells 3.51 10^6/uL (4.0-5.20); Red Cell Distribution Width 12.8 % (11.8-14.3); White Blood Cell 8.9 10^3/uL (4.4-10.8)
[2024-10-26 07:16] LABS: Anion Gap 8 (5-15); Carbon Dioxide 23 mmol/L (20-31); Chloride 104 mmol/L (98-107); Potassium 3.5 mmol/L (3.5-5.1)
[2024-10-26 07:22] LABS: BUN/Creatinine Ratio 17.9 (10.0-20.0); Blood Urea Nitrogen 10 mg/dL (9-23); Calcium 10.4 mg/dL (8.7-10.4); Glucose 99 mg/dL (74-106); Sodium 135 mmol/L (136-145)
--- NOTE | 2024-10-26 11:10 | DVHPN2 ---
Progress Note - Dictate Date Seen: Oct 26, 2024 Medical Necessity Reason Pt with a Central, PICC or Fol: No vital signs Vital Sign Date Time Temp Pulse Resp B/P (MAP) Pulse Ox O2 Delivery O2 Flow Rate FiO2 10/26/24 09:00 97.6 102 18 159/79 (105) 98 97.6 10/25/24 19:56 Room Air* 0 21 Total Intake and Output 10/25/24 10/25/24 10/26/24 15:00 23:00 07:00 Intake Total 100 ml 500 ml Output Total 750 ml Balance 100 ml -250 ml medications Current Medications Medications Dose Ordered Sig/Tony Route Start Time Stop Time Status Last Admin Dose Admin Acetaminophen/ Hydrocodone Bitart 1 tab Q4HP PRN PO 10/24/24 16:45 10/26/24 05:17 1 TAB Ondansetron HCl 4 mg Q4HP PRN IV 10/24/24 16:45 10/25/24 03:45 4 MG Docusate Sodium 100 mg BIDPRN PRN PO 10/24/24 16:45 Acetaminophen 650 mg Q6HP PRN PO 10/24/24 16:45 10/25/24 03:46 650 MG Morphine Sulfate 2 mg Q6HPRN PRN IV 10/25/24 03:00 10/25/24 20:44 2 MG Saccharomyces Boulardii 250 mg DAILY PO 10/25/24 10:00 10/25/24 10:51 250 MG Hydralazine HCl 10 mg Q6HP PRN IV 10/25/24 08:00 10/26/24 05:18 10 MG Clindamycin Phosphate 50 ml @ 50 mls/hr 0600,0700,1400,1500,2200,2300 IV 10/25/24 22:00 10/26/24 06:07 50 MLS/HR objective General Appearance: alert, no distress HEENT: EOMI, PERRLA, normal external inspect of ears, no icterus, no nasal drainage Neck: no carotid bruit, no jugular venous distention (JVD), no lymphadenopathy Chest: normal thorax Respiratory: clear to auscultation, normal air movement Cardiovascular: regular rate and rhythm, no diastolic murmur, no jugular venous distention (JVD), no rub, no systolic murmur Abdominal: soft, no hepatomegaly, no mass, no splenomegaly, no tenderness Genitourinary: grossly normal external Musculoskeletal: no joint tenderness, no swelling Extremities: normal pulses, no calf tenderness, no clubbing, no cyanosis, no edema Skin: no bruising, no jaundice, no rash Neurological: alert, No focal deficit laboratory and microbiology Laboratory Tests 10/26/24 06:22 Test 10/26/24 06:22 Range/Units Serum Glucose 99 74-106 mg/dL Problem List 1. Left lower extremity cellulitis Monitor, IV antibiotics 2. Non-healthy left foot ulcer Monitor, podiatry consult, daily wound care 3. Benign essential hypertension Monitor, antihypertensives, PPI, DVT prophylaxis 4. Smoker Monitor, smoking cessation 5. Iron deficiency anemia Monitor, daily labs, iron panel Assessment/Plan Subjective: Patient is awake and alert. Objective: Patient was seen and evaluated by non-healing wound to her right foot. Patient was seen and evaluated by podiatry. They did give recommendations of cleaning wound with wound cleanser and applying medi honey. Patient will need a non- adherent dressing and to wrap with Kerlix. I did put in for a wound consult today. Plan: Continue current treatment. No wound debridement needed. Arrange for home health with daily wound care. SAI planning for tomorrow. Plan discussed with: Patient, Other MICHI VAZQUEZ NP Oct 26, 2024 11:10
[2024-10-26] MEDS: PANTOPRAZOLE 40 MG TAB PO ONE (16:27)
[2024-10-26] MEDS: ENOXAPARIN SOD 40 MG/0.4 ML SYRINGE SC SCH (16:28)
[2024-10-27] VITALS (7 sets, daily range): BP systolic 120–166; BP diastolic 64–82; PULSE 83–114; RESP 16–19; TEMP 36.7; O2SAT 95–100
[2024-10-27] MEDS: PANTOPRAZOLE 40 MG TAB PO SCH (05:20)
[2024-10-27] MEDS ORDERED: CLIN1CAP70 PO (14:44)
[2024-10-27] MEDS ORDERED: METOPROLOL TARTRATE 25 MG TAB PO SCH (14:45)
[2024-10-27] MEDS ORDERED: METO25TA5 PO (14:49)
--- NOTE | 2024-10-27 14:49 | DVHDS2 ---
Discharge Summary Date of Admission Oct 24, 2024 at 16:35 Date of Discharge: Oct 27, 2024 Labs/Diagnostic Data: Laboratory Results Test 10/26/24 06:22 10/25/24 08:15 10/25/24 05:17 10/24/24 17:56 White Blood Count 8.9 10^3/uL (4.4-10.8) Red Blood Count 3.51 10^6/uL (4.0-5.20) Hemoglobin 10.8 g/dL (12.2-16.2) Hematocrit 31.7 % (36.0-46.0) Mean Corpuscular Volume 90.3 fL (80.0-100.0) Mean Corpuscular Hemoglobin 30.8 pg (28.0-32.0) Mean Corpuscular Hemoglobin Concent 34.1 g/dL (32.0-36.0) Red Cell Distribution Width 12.8 % (11.8-14.3) Platelet Count 404 10^3/uL (140-450) Mean Platelet Volume 6.5 fL (6.9-10.8) Neutrophils (%) (Auto) 74.5 % (37.0-80.0) Lymphocytes (%) (Auto) 11.6 % (10.0-50.0) Monocytes (%) (Auto) 8.7 % (0.0-12.0) Eosinophils (%) (Auto) 4.9 % (0.0-7.0) Basophils (%) (Auto) 0.3 % (0.0-2.0) Neutrophils # (Auto) 6.6 10 ^3/uL (1.6-8.6) Lymphocytes # (Auto) 1.0 10 ^3/uL (0.4-5.4) Monocytes # (Auto) 0.8 10 ^3/uL (0-1.3) Eosinophils # (Auto) 0.4 10 ^3/uL (0-0.8) Basophils # (Auto) 0 10 ^3/uL (0-0.2) Nucleated Red Blood Cells 0.0 % Sodium Level 135 mmol/L (136-145) Potassium Level 3.5 mmol/L (3.5-5.1) Chloride Level 104 mmol/L (98-107) Carbon Dioxide Level 23 mmol/L (20-31) Anion Gap 8 (5-15) Blood Urea Nitrogen 10 mg/dL (9-23) Creatinine 0.56 mg/dL (0.550-1.02) Glomerular Filtration Rate Calc 100 mL/min (>90) BUN/Creatinine Ratio 17.9 (10.0-20.0) Serum Glucose 99 mg/dL (74-106) Calcium Level 10.4 mg/dL (8.7-10.4) Urine Color Colorless (Yellow) Urine Clarity Turbid (Clear) Urine pH 6.5 (5.0-9.0) Urine Specific [place] 1.012 (1.001-1.035) Urine Protein Negative (Negative) Urine Ketones Negative (Negative) Urine Blood 1+ /uL (Negative) Urine Nitrite 2+ (Negative) Urine Bilirubin Negative (Negative) Urine Urobilinogen Normal mg/dL (Negative) Urine Leukocyte Esterase 3+ /uL (Negative) Urine RBC 36 /hpf (0 - 4) Urine WBC Clumps Present /hpf (None Seen) Urine Microscopic WBC 415 /HPF (0-5) Urine Squamous Epithelial Cells None seen /hpf (<5) Urine Bacteria Few /hpf (None Seen) Urine Glucose Normal mg/dL (Normal) Prothrombin Time 11.4 sec (9.3-11.8) Prothrombin Time INR 1.08 (0.9-1.15) Activated Partial Thromboplast Time 31.5 SEC (24.5-34.5) Hemoglobin A1c 5.4 % A1C (<5.7) Magnesium Level 1.8 mg/dL (1.6-2.6) Iron Level 23 ug/dL (50-170) Total Iron Binding Capacity 196 ug/dL (250-425) Percent Iron Saturation 11.7 % (15-50) Total Bilirubin 0.4 mg/dL (0.2-1.0) Aspartate Amino Transferase (AST) < 8 U/L (13-40) Alanine Aminotransferase (ALT) < 9 U/L (7-40) Alkaline Phosphatase 60 U/L (46-116) Total Protein 6.5 g/dL (5.7-8.2) Albumin 3.9 g/dL (3.2-4.8) Triglycerides Level 87 mg/dL (< 150) Cholesterol Level 107 mg/dL (< 200) LDL Cholesterol 68 mg/dL (< 100) HDL Cholesterol 26 mg/dL (40-59) Vitamin D 25-Hydroxy 36.5 ng/mL (30.0-100) Thyroid Stimulating Hormone (TSH) 6.23 uIU/mL (0.55-4.78) Free Thyroxine (T4) Calculated 1.47 ng/dL (0.89-1.76) Lactic Acid Level 0.6 mmol/L (0.4-2.0) Test 10/24/24 12:02 Erythrocyte Sedimentation Rate 90 mm/hr (0-20) Other Laboratory Tests 10/26/24 06:22 Brief Hx & Hospital Course: 68-year-old female with past medical history of hypertension, hyperlipidemia, and bowel resection surgery with colostomy was complaining of wound to her left foot. Wound began a couple weeks ago with a blister that rubbed on her shoe and opened up. Patient was admitted on October 24, 2024 for nonhealing wound to her left foot. Patient was seen by podiatry. No surgical intervention was indicated. Patient was treated for cellulitis. was arranged for daily wound care. support services coordinator also consulted for possible shower chair and walker. I did inform patient I was unsure if insurance would cover. If insurance did approve DME equipment would be sent to home. She was instructed to follow-up with her PCP in 1 week. The patient received proper medical treatment and medications. Vital signs, Imaging and Laboratory Work was monitored daily. All consults recommendations were followed as provided. There were no complaints or new complaints upon discharge, all questions and concerns were answered. Patient was advised to return to the ER or call 911 if any headaches, dizziness, shortness of breath, chest pain, bleeding, fevers, or worsening of medical condition. Patient/Family was counseled about treatment plan, medications, possible side effects, patient verbalized understanding. All questions were answered to the best of my ability. The patient symptoms improved and they are okay to be DC. Condition at Discharge: Good Final Diagnosis/Problems List NON HEALING FOOT ULCER Secondary Diagnosis: Left lower extremity cellulitis Non-healthy left foot ulcer Benign essential hypertension Smoker Iron deficiency anemia Discharge Disposition: Home with Health Services Discharge Instruct/Medications Diet: Cardiac 2g Na,low cholest Activity: No Restrictions, As Tolerated Follow Up/Referral: PCP 1 WEEK Discharge Statement: "Patient was advised to return to the ER or call 911 if any headaches, dizziness, shortness of breath, chest pain, abdominal pain, bleeding, fevers, or worsening of medical condition. Patient was counseled about treatment plan, medications, possible side effects, patientverbalized understanding. All questions were answered to the best of my ability. This discharge took greater then 30 minutes in planning, reviewing documentation, counseling the patient, and discussing with other team members." ASSESSMENT ASSESSMENT Assessment NON HEALING FOOT ULCER MICHI VAZQUEZ NP Oct 27, 2024 14:49
--- NOTE | 2024-10-27 16:31 | DVH ---
CLINICAL INDICATION: pain TECHNIQUE: XY R KNEE 2V XRAY, XY L KNEE 2V XRAY Comparison: None FINDINGS/IMPRESSION: : There is no evidence of acute fracture or dislocation. Mild to moderate bilateral tricompartmental degenerative change.
[2024-10-27] MEDS ORDERED: IBUP-1454 PO (17:46)
== END 2024-10-27 17:57 | disposition home or self-care (01) | DRG 603 ==
LOC: EDBD 11:37 → ER 11:47 → OVERFLOW 16:35 → WEST WING 10-25 18:03
PROVIDERS: ADMIT Nurse Practitioner; ATTEND Nurse Practitioner
DX: L03.116 Cellulitis of left lower limb (principal); N39.0 Urinary tract infection, site not specified; J44.9 Chronic obstructive pulmonary disease, unspecified; D50.9 Iron deficiency anemia, unspecified; I10 Essential (primary) hypertension; E87.6 Hypokalemia; F17.290 Nicotine dependence, other tobacco product, uncomplicated; L97.529 Non-pressure chronic ulcer of other part of left foot with unspecified severity; E78.5 Hyperlipidemia, unspecified; E03.8 Other specified hypothyroidism; Z90.710 Acquired absence of both cervix and uterus; Z93.3 Colostomy status; Z82.49 Family history of ischemic heart disease and other diseases of the circulatory system; Z79.899 Other long term (current) drug therapy
CPT/HCPCS: 36415; 73560; 73700; 73718; 80048; 80053; 80061; 81001; 82306; 83036; 83540; 83550; 83605; 83735; 84439; 84443; 85025; 85610; 85652; 85730; 87040; 87086; 87088; 87186; 87205; 93970; 96365; 96375; G0378; J2405; J3490

== ENCOUNTER 2025-02-06 06:01 | Inpatient (IN) | payer MEDICARE ==
[~2025-02-06] VITALS: Ht 165.1 cm; Wt 67.1 kg
[~2025-02-06 06:01] MED LIST: CLIN1CAP70 PO; IBUP-1454 PO; METO25TA5 PO
--- NOTE | 2025-02-06 06:29 | ED.PDOC ---
Musculoskeletal HPI Comments 69 y/o F, BIBA, with PMHx of HTN presents to the ED for CC of lower extremity pain. EMS reports, patient is coming from home where she c/o left foot pain d/t cellulitis of the top foot which has been present since, October 2024. Patient reports, that she had an at home wound care nurse who would follow up with care however, nurse quit after x1 month and has been unable to get care. Patient endorses pain, tenderness, and swelling to now be spreading to her toes. Patient denies trauma, injury, or fall. No other associated symptoms, modifiers, recent injuries or sick contacts present at this time. Time Seen by MD: 06:20 Primary Care Provider: Arsen Reviewed Notes: Nurses Notes, Chemical Research Technician Notes, Medications, Allergies Allergies: Coded Allergies: NO KNOWN ALLERGIES (Unverified , 10/24/24) Home Meds Active Scripts Ibuprofen (Ibuprofen) 600 Mg Tab, 1 TAB PO TID PRN, #30 TAB Prov:MICHI VAZQUEZ NP 10/27/24 Metoprolol Tartrate (Metoprolol Tartrate) 25 Mg Tab, 1 TAB PO BID, #60 TAB 5 Refills Prov:MICHI VAZQUEZ NP 10/27/24 Clindamycin Hcl (Clindamycin Hcl) 300 Mg Cap, 1 CAP PO TID, #21 CAP Prov:MICHI VAZQUEZ NP 10/27/24 Information Source: Patient, Emergency Med Personnel Mode of Arrival: EMS Location: Left Extremity Location: Foot Timing: Months Prehospital treatment: None Severity: Moderate Able to Move Extremity: Yes Bear Weight: Limited Pain: Moderate Mechanism: Unknown Circumstances: Preceding Wound Symptoms: Pain DVT Risk Factors: NONE Last Tetanus: Unknown Associated signs and symptoms: Foot pain Past Medical History PAST MEDICAL HISTORY: COPD, HTN Surgical History: Hysterectomy 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 Family History Family History: Family hx of HTN Family History (Other): Pulmonary embolism Social History Smoker: Other Alcohol: Occasionally Drugs: Marijuana Lives In: Home Constitutional: denies: chills, diaphoresis, fatigue, fever, malaise, sweats, weakness, others EENTM: denies: blurred vision, double vision, ear bleeding, ear discharge, ear drainage, ear pain, ear ringing, eye pain, eye redness, hearing loss, mouth pain, mouth swelling, nasal discharge, nose bleeding, nose congestion, nose pain, photophobia, tearing, throat pain, throat swelling, voice changes, others Respiratory: denies: cough, hemoptysis, orthopnea, SOB at rest, shortness of breath, SOB with excertion, stridor, wheezing, others Cardiovascular: denies: chest pain, dizzy spells, diaphoresis, Dyspnea on exertion, edema, irregular heart beat, left arm pain, lightheadedness, palpitations, PND, syncope, others Gastrointestinal: denies: abdomen distended, abdominal pain, blood streaked bowels, constipated, diarrhea, dysphagia, difficulty swallowing, hematemesis, me bebeto, nausea, poor appetite, poor fluid intake, rectal bleeding, rectal pain, vomiting, others Genitourinary: denies: abnormal vagina bleeding, burning, dyspareunia, dysuria, flank pain, frequency, hematuria, incontinence, pain, , vagina discharge, urgency, others Neurological: denies: dizziness, fainting, headache, left sided numbness, left sided weakness, numbness, paresthesia, pre-existing deficit, right sided numbness, right sided weakness, seizure, speech problems, tingling, tremors, weakness, others Musculoskeletal: reports: others (lef foot pain); denies: back pain, gout, joint pain, joint swelling, muscle pain, muscle stiffness, neck pain Integumetry: denies: bruises, change in color, change in hair/nails, dryness, laceration, lesions, lumps, rash, wounds, others Allergic/Immunocompromised: denies: Difficulty Healing, Frequent Infections, Hives, Itching, others Hematologic/Lymphatic: denies: anemia, blood clots, easy bleeding, easy bruising, swollen glands, others Endocrine: denies: excessive hunger, excessive sweating, excessive thirst, excessive urination, flushing, intolerance to cold, intolerance to heat, unexplained weight gain, unexplained weight loss, others Psychiatric: denies: anxiety, bipolar disorder, depression, hopeless, panic disorder, schizophrenia, sleepless, suicidal, others All Other Systems: Reviewed and Negative Physical Exam General Appearance: No Apparent Distress, Normal HEENT: Normal ENT Inspection, Pharynx Normal Neck: Full Range of Motion, Non-Tender, Normal, Normal Inspection Respiratory: Chest Non-Tender, Lungs Clear, No Accessory Muscle Use, No Respiratory Distress, Normal Breath Sounds Cardiovascular: No Edema, No Murmur, No Gallop, Normal Peripheral Pulses, Regular Rate/Rhythm Breast Exam: Deferred Gastrointestinal: No Organomegaly, Non Tender, No Pulsatile Mass, Normal Bowel Sounds, Soft Genitalia: Deferred Pelvic: Deferred Rectal: Deferred Extremities: No calf tenderness, Normal capillary refill, Normal inspection, Normal range of motion, Non-tender, No pedal edema Musculoskeletal : Location: Left Extremity Location: Foot Apperance: Other (erythema, tenderness) Neurologic: Alert, licensing manager II-XII nml as Tested, No Motor Deficits, Normal Affect, Normal Mood, No Sensory Deficits Cerebellar Function: Normal Reflexes: Normal Skin: Dry, Normal Color, Warm Lymphatic: No Adenopathy Was a procedure done? Was a procedure done?: No Differential Diagnosis EXT Differential Diagnosis: Cellulitis X-Ray, Labs, Meds, VS Vital Signs Date Time Temp Pulse Resp B/P (MAP) Pulse Ox O2 Delivery O2 Flow Rate FiO2 02/06/25 09:47 73 02/06/25 08:18 78 14 168/73 02/06/25 08:00 97.3 77 12 168/73 (104) 100 97.3 02/06/25 08:00 77 12 100 Room Air* 0 21 02/06/25 06:40 97.9 69 11 138/68 (91) 97 97.9 02/06/25 06:30 78 11 97 Room Air* 0 02/06/25 06:26 97.8 96 16 154/89 (110) 99 97.8 Lab Test 02/06/25 07:40 02/06/25 06:38 Range/Units Urine Color Light-yellow Yellow Urine Clarity Cloudy H Clear Urine pH 6.0 5.0-9.0 Urine Specific [place] 1.007 1.001-1.035 Urine Protein 1+ H Negative Urine Ketones Negative Negative Urine Blood 2+ H Negative /uL Urine Nitrite Negative Negative Urine Bilirubin Negative Negative Urine Urobilinogen Normal Negative mg/dL Urine Leukocyte Esterase 3+ Negative /uL Urine RBC 48 0 - 4 /hpf Urine WBC Clumps Present None Seen /hpf Urine Microscopic WBC 1624 H 0-5 /HPF Urine Squamous Epithelial Cells None seen <5 /hpf Urine Bacteria Few H None Seen /hpf Urine Glucose Normal Normal mg/dL White Blood Count 6.9 4.4-10.8 10^3/uL Red Blood Count 3.73 L 4.0-5.20 10^6/uL Hemoglobin 11.9 L 12.2-16.2 g/dL Hematocrit 34.6 L 36.0-46.0 % Mean Corpuscular Volume 92.9 80.0-100.0 fL Mean Corpuscular Hemoglobin 32.0 28.0-32.0 pg Mean Corpuscular Hemoglobin Concent 34.4 32.0-36.0 g/dL Red Cell Distribution Width 13.7 11.8-14.3 % Platelet Count 427 140-450 10^3/uL Mean Platelet Volume 6.3 L 6.9-10.8 fL Neutrophils (%) (Auto) 67.0 37.0-80.0 % Lymphocytes (%) (Auto) 14.2 10.0-50.0 % Monocytes (%) (Auto) 9.5 0.0-12.0 % Eosinophils (%) (Auto) 8.6 H 0.0-7.0 % Basophils (%) (Auto) 0.7 0.0-2.0 % Neutrophils # (Auto) 4.6 1.6-8.6 10 ^3/uL Lymphocytes # (Auto) 1.0 0.4-5.4 10 ^3/uL Monocytes # (Auto) 0.7 0-1.3 10 ^3/uL Eosinophils # (Auto) 0.6 0-0.8 10 ^3/uL Basophils # (Auto) 0 0-0.2 10 ^3/uL Nucleated Red Blood Cells 0.0 % Prothrombin Time 10.9 9.3-11.8 sec Prothrombin Time INR 1.03 0.9-1.15 Activated Partial Thromboplast Time 26.9 24.5-34.5 SEC Sodium Level 132 L 136-145 mmol/L Potassium Level 4.2 3.5-5.1 mmol/L Chloride Level 99 98-107 mmol/L Carbon Dioxide Level 25 20-31 mmol/L Anion Gap 8 5-15 Blood Urea Nitrogen 8 L 9-23 mg/dL Creatinine 0.61 0.550-1.02 mg/dL Glomerular Filtration Rate Calc 97 >90 mL/min BUN/Creatinine Ratio 13.1 10.0-20.0 Serum Glucose 104 74-106 mg/dL Lactic Acid Level 0.8 0.4-2.0 mmol/L Calcium Level 10.0 8.7-10.4 mg/dL Total Bilirubin 0.2 0.2-1.0 mg/dL Aspartate Amino Transferase (AST) 30 13-40 U/L Alanine Aminotransferase (ALT) 10 7-40 U/L Alkaline Phosphatase 72 46-116 U/L Total Protein 6.5 5.7-8.2 g/dL Albumin 4.2 3.2-4.8 g/dL Current Medications Medications (Trade) Dose Ordered Sig/Tony Route Start Time Stop Time Status Last Admin Vancomycin HCl 200 ml @ 200 mls/hr ONCE ONCE IV 02/06/25 06:30 02/06/25 07:29 DC 02/06/25 06:49 Sodium Chloride 1,000 ml @ 1,000 mls/hr Q1H ONCE IV 02/06/25 06:30 02/06/25 07:29 DC 02/06/25 06:49 Morphine Sulfate 4 mg ONCE ONCE IV 02/06/25 07:45 02/06/25 07:46 DC 02/06/25 08:18 Ondansetron HCl (Zofran) 4 mg ONCE ONCE IV 02/06/25 07:45 02/06/25 07:46 DC 02/06/25 08:18 [place] [address] Ph: [phone] DIAGNOSTIC IMAGING Diagnostic Imaging Report : [id number] Signed PATIENT: LYLE SANTIAGO ACCT: [id number] UNIT: [id number] : 1955 LOC: ER ROOM / BED: / AGE / SEX: 69 / F ADM STATUS: REG ER SERVICE 9 ORDERING PHYSICIAN: LARRY QUINN MD PROCEDURE(s): CXRP - CHEST PORTABLE REASON: fever ORDER NUMBER(s): [id number], ACCESSION NUMBER(s): [id number] CHEST RADIOGRAPH Indication: Fever Technique: Single frontal view of the chest was obtained Comparison: None FINDINGS: Lines and Tubes: None Lungs: No focal consolidation. Pleura: No effusion. No pneumothorax. Cardiomediastinal contours: Unremarkable Bones: No acute osseous abnormality. IMPRESSION: 1. No acute cardiopulmonary disease. ATED BY: HERBERT FIGUEROA MD DICTATED DATE/TIME: 02/06/25711 SIGNED BY: HERBERT FIGUEROA MD SIGNED DATE/TIME: 02/06/25711 CC: [address] [address] Ph: [phone] DIAGNOSTIC IMAGING Diagnostic Imaging Report : [id number] Signed PATIENT: LYLE SANTIAGO ACCT: [id number] UNIT: [id number] : 1955 LOC: ER ROOM / BED: / AGE / SEX: 69 / F ADM STATUS: REG ER SERVICE 9 ORDERING PHYSICIAN: LARRY QUINN MD PROCEDURE(s): LFOOT - L FOOT 3 VIEW XRAY REASON: left foot pain ORDER NUMBER(s): [id number], ACCESSION NUMBER(s): [id number] EXAM: XY L FOOT 3 VIEW XRAY HISTORY: left foot pain COMPARISON: None TECHNIQUE: Three views of the left foot were performed. FINDINGS: Bones are demineralized. No acute fracture or dislocation are identified about the left foot. No cortical destruction. IMPRESSION: 1. No acute fracture of the left foot. No cortical destruction. Osseous demineralization limits evaluation. If there is concern for acute osseous abnormality, CT of the left foot is recommended. ATED BY: HERBERT FIGUEROA MD DICTATED DATE/TIME: 02/06/25711 SIGNED BY: HERBERT FIGUEROA MD SIGNED DATE/TIME: 02/06/25711 CC: Time of 1ST Reevaluation: 06:50 Reevaluation 1ST: Unchanged Patient Education/Counseling: Diagnosis, Treatment Family Education/Counseling: No Family Present Sepsis Sepsis Reasesment Focused Exam Orders: Laboratory Tests 02/06/25 06:38: Lactic Acid Level 0.8 Departure 1 Departure Time of Disposition: 09:56 (Patient with lower extremity cellulitis and a uti. Will empirically cover patient with antibiotics and fluids and admit patient for further workup .) Impression: Primary Impression: Cellulitis of left foot Additional Impression: Complicated UTI (urinary tract infection) Disposition: ADMITTED INPATIENT Admit to: Med Surg Condition: Serious Critical Care Note Critical Care Time?: Yes Critical care comment: Authorized and Performed by: Larry Quinn MD Total critical care time: Approximately 38 minutes Due to a high probability of clinically significant, life threatening deterioration, the patient required my highest level of preparedness to intervene emergently and I personally spent this critical care time directly and personally managing the patient. This critical care time included obtaining a history; examining the patient; pulse oximetry; ordering and review of studies; arranging urgent treatment with development of a management plan; evaluation of patient's response to treatment; frequent reassessment; and, discussions with other providers. This critical care time was performed to assess and manage the high probability of imminent, life-threatening deterioration that could result in multi-organ failure. It was exclusive of separately billable procedures and treating other patients and teaching time. Please see my other sections and the rest of the note for further information on patient assessment and treatment. Stability Stability form required: No Heart Score Heart Score: Heart Score Response (Comments) Value History N/A 0 EKG N/A 0 Age N/A 0 Risk Factors N/A 0 Troponin N/A 0 Total 0 I personally scribed for LARRY QUINN MD ([email or web address]) on 02/06/25 at 06:29. Electronically submitted by Elsi Ayon ([employer]). I personally scribed for LARRY QUINN MD ([email or web address]) on 02/06/25 at 07:17. Electronically submitted by Elsi Ayon ([employer]). I personally scribed for LARRY QUINN MD ([email or web address]) on 02/06/25 at 07:19. Electronically submitted by Elsi Ayon ([employer]). LARRY QUINN MD Feb 06, 2025 06:29
[2025-02-06 06:30] VITALS: PULSE 78; RESP 11; O2SAT 97
[2025-02-06] MEDS: SODIUM CHLORIDE 0.9% 1,000 ML IV ONE (06:49)
[2025-02-06] MEDS: VANCOMYCIN 1GM/200ML PM 200 ML IV ONE (06:49)
[2025-02-06 07:10] LABS: Hematocrit 34.6 % (36.0-46.0); Hemoglobin 11.9 g/dL (12.2-16.2); Mean Corpuscular Hemoglobin 32.0 pg (28.0-32.0); Mean Corpuscular Volume 92.9 fL (80.0-100.0); Nucleated Red Blood Cells % 0.0 %
--- NOTE | 2025-02-06 07:14 | DVH ---
CHEST RADIOGRAPH Indication: Fever Technique: Single frontal view of the chest was obtained Comparison: None FINDINGS: Lines and Tubes: None Lungs: No focal consolidation. Pleura: No effusion. No pneumothorax. Cardiomediastinal contours: Unremarkable Bones: No acute osseous abnormality. IMPRESSION: 1. No acute cardiopulmonary disease.
--- NOTE | 2025-02-06 07:14 | DVH ---
EXAM: XY L FOOT 3 VIEW XRAY HISTORY: left foot pain COMPARISON: None TECHNIQUE: Three views of the left foot were performed. FINDINGS: Bones are demineralized. No acute fracture or dislocation are identified about the left foot. No tonny ical destruction. IMPRESSION: 1. No acute fracture of the left foot. No cortical destruction. Osseous demineralization limits evalu ation. If there is concern for acute osseous abnormality, CT of the left foot is recommended.
[2025-02-06 07:29] LABS: Alanine Aminotransferase 10 U/L (7-40); Albumin 4.2 g/dL (3.2-4.8); Alkaline Phosphatase 72 U/L (46-116); Anion Gap 8 (5-15); BUN/Creatinine Ratio 13.1 (10.0-20.0); Calcium 10.0 mg/dL (8.7-10.4); Carbon Dioxide 25 mmol/L (20-31); Chloride 99 mmol/L (98-107); Glucose 104 mg/dL (74-106); Potassium 4.2 mmol/L (3.5-5.1); Total Protein 6.5 g/dL (5.7-8.2)
[2025-02-06 07:31] LABS: Bilirubin, Total 0.2 mg/dL (0.2-1.0); Blood Urea Nitrogen 8 mg/dL (9-23); INR 1.03 (0.9-1.15); Partial Thromboplastin Time 26.9 SEC (24.5-34.5); Prothrombin Time 10.9 sec (9.3-11.8); Sodium 132 mmol/L (136-145)
[2025-02-06 08:00] VITALS: PULSE 77; RESP 12; O2SAT 100
[2025-02-06 08:08] LABS: Urine Protein, UAD 1+ (Negative); Urine WBC Clumps PRESENT /hpf (None Seen)
[2025-02-06] MEDS: MORPHINE SULFATE 4 MG/ML SYR/VIAL IV ONE (08:18)
[2025-02-06] MEDS: ONDANSETRON HCL 4 MG/2 ML VIAL IV ONE (08:18)
[2025-02-06] MEDS: CEFEPIME 1GM/ 50ML 50 ML IV SCH ×2 (10:13→22:00)
[2025-02-06] MEDS ORDERED: DOCUSATE SOD 100 MG CAP PO PRN (12:15)
[2025-02-06] MEDS ORDERED: LORazepam 2MG/ML-1ML VIAL IV PRN (12:15)
[2025-02-06] MEDS ORDERED: VANCOMYCIN PER PHARMACY 0 MG IV SCH (12:15)
--- NOTE | 2025-02-06 12:32 | DVHHP2 ---
History of Present Illness Reason for Visit: Left foot wound History of Present Illness Jelly Negro is a 69-year-old female with past medical history of hypertension, who came to the hospital due to a nonhealing wound on her left foot. Patient was first seen in the hospital October 2024 for this wound. She was given antibiotics and sent home with home wound care. She states they were coming for about 6-7 weeks, then the nurse moved and the company did not have anyone else they could send out to her. She has had any wound care for about 6 weeks now. She states she came to the hospital today because the wound has become so painful it is difficult for her to walk and complete her daily activities. The wound is on the dorsal aspect of her foot. It is open with slough, yellow drainage, and foul odor. Cardiovascular: HTN Past Surgical History: Hysterectomy, Other (colostomy) Smoke: <1 pack per day (Vape) ALCOHOL: heavy (2-3 beers a day) Drugs: None Lives: Alone Domestic Violence: Neg Review of Systems Constitutional: No: Fever, Chills, Sweats, Weakness, Malaise, Other Eyes: No: Pain, Vision change, Conjunctivae inflammation, Eyelid inflammation, Other, Redness ENT: No: Ear pain, Ear discharge, Nose pain, Nose discharge, Nose congestion, Mouth pain, Mouth swelling, Throat pain, Throat swelling, Other Respiratory: No: Cough, Dry, Shortness of breath, SOB with excertion, Wheezing, Hemoptysis, Pleuritic Pain, Sputum, Wheezing, Other Cardiovascular: No: Chest Pain, Palpitations, Orthopnea, Paroxysmal Noc. Dyspnea, Edema, Lt Headedness, Other Gastrointestinal: No: Nausea, Vomiting, Abdominal Pain, Diarrhea, Constipation, Melena, Hematochezia, Other Genitourinary: No Dysuria, No Frequency, No Incontinence, No Hematuria, No Retention, No Other Musculoskeletal: foot pain (left); No: other, neck pain, shoulder pain, arm pain, back pain, hand pain, leg pain Skin: Lesions (left foot); No: Rash, Jaundice, Bruising, Other Neurological: No: Weakness, Numbness, Incoordination, Change in speech, Confusion, Seizures, Other Allergies: Coded Allergies: NO KNOWN ALLERGIES (Unverified , 10/24/24) Medications Current Medications Medications Dose Ordered Sig/Tony Route Start Time Stop Time Status Last Admin Dose Admin Cefepime HCl 50 ml @ 12.5 mls/hr Q12HR IV 02/06/25 10:00 02/06/25 10:13 12.5 MLS/HR Vancomycin HCl 0 ml @ 0 mls/hr UD IV 02/06/25 12:15 UNV Cefepime HCl 50 ml @ 12.5 mls/hr Q8HR IV 02/06/25 14:00 UNV Clindamycin Phosphate 50 ml @ 50 mls/hr Q8HR IV 02/06/25 14:00 UNV Acetaminophen/ Hydrocodone Bitart 1 tab Q4HP PRN PO 02/06/25 12:15 UNV Exam Vital Signs Vital Signs Date Time Temp Pulse Resp B/P (MAP) Pulse Ox O2 Delivery O2 Flow Rate FiO2 02/06/25 10:00 66 18 149/89 (109) 97 02/06/25 08:00 97.3 97.3 02/06/25 08:00 Room Air* 0 21 General Appearance: Alert, Oriented X3, Cooperative, moderate distress HEENT: Atraumatic, PERRLA Respiratory: Clear to auscultation, Normal air movement Cardiovascular: Regular rate, Normal S1, Normal S2, No murmurs Abdominal: Normal bowel sounds, Soft, No tenderness, No hepatospenomegaly Extremities: No clubbing, No cyanosis, Other (left foot edema) Skin: No significant lesion (left foot open wound) Neuro: Normal speech, Other (decreased strength due to pain in left foot) Psych/Mental Status: Mental status NL, Mood NL Labs/Xrays Labs Test 02/06/25 07:40 02/06/25 06:38 Range/Units Urine Color Light-yellow Yellow Urine Clarity Cloudy H Clear Urine pH 6.0 5.0-9.0 Urine Specific [place] 1.007 1.001-1.035 Urine Protein 1+ H Negative Urine Ketones Negative Negative Urine Blood 2+ H Negative /uL Urine Nitrite Negative Negative Urine Bilirubin Negative Negative Urine Urobilinogen Normal Negative mg/dL Urine Leukocyte Esterase 3+ Negative /uL Urine RBC 48 0 - 4 /hpf Urine WBC Clumps Present None Seen /hpf Urine Microscopic WBC 1624 H 0-5 /HPF Urine Squamous Epithelial Cells None seen <5 /hpf Urine Bacteria Few H None Seen /hpf Urine Glucose Normal Normal mg/dL White Blood Count 6.9 4.4-10.8 10^3/uL Red Blood Count 3.73 L 4.0-5.20 10^6/uL Hemoglobin 11.9 L 12.2-16.2 g/dL Hematocrit 34.6 L 36.0-46.0 % Mean Corpuscular Volume 92.9 80.0-100.0 fL Mean Corpuscular Hemoglobin 32.0 28.0-32.0 pg Mean Corpuscular Hemoglobin Concent 34.4 32.0-36.0 g/dL Red Cell Distribution Width 13.7 11.8-14.3 % Platelet Count 427 140-450 10^3/uL Mean Platelet Volume 6.3 L 6.9-10.8 fL Neutrophils (%) (Auto) 67.0 37.0-80.0 % Lymphocytes (%) (Auto) 14.2 10.0-50.0 % Monocytes (%) (Auto) 9.5 0.0-12.0 % Eosinophils (%) (Auto) 8.6 H 0.0-7.0 % Basophils (%) (Auto) 0.7 0.0-2.0 % Neutrophils # (Auto) 4.6 1.6-8.6 10 ^3/uL Lymphocytes # (Auto) 1.0 0.4-5.4 10 ^3/uL Monocytes # (Auto) 0.7 0-1.3 10 ^3/uL Eosinophils # (Auto) 0.6 0-0.8 10 ^3/uL Basophils # (Auto) 0 0-0.2 10 ^3/uL Nucleated Red Blood Cells 0.0 % Prothrombin Time 10.9 9.3-11.8 sec Prothrombin Time INR 1.03 0.9-1.15 Activated Partial Thromboplast Time 26.9 24.5-34.5 SEC Sodium Level 132 L 136-145 mmol/L Potassium Level 4.2 3.5-5.1 mmol/L Chloride Level 99 98-107 mmol/L Carbon Dioxide Level 25 20-31 mmol/L Anion Gap 8 5-15 Blood Urea Nitrogen 8 L 9-23 mg/dL Creatinine 0.61 0.550-1.02 mg/dL Glomerular Filtration Rate Calc 97 >90 mL/min BUN/Creatinine Ratio 13.1 10.0-20.0 Serum Glucose 104 74-106 mg/dL Lactic Acid Level 0.8 0.4-2.0 mmol/L Calcium Level 10.0 8.7-10.4 mg/dL Total Bilirubin 0.2 0.2-1.0 mg/dL Aspartate Amino Transferase (AST) 30 13-40 U/L Alanine Aminotransferase (ALT) 10 7-40 U/L Alkaline Phosphatase 72 46-116 U/L Total Protein 6.5 5.7-8.2 g/dL Albumin 4.2 3.2-4.8 g/dL CHEST RADIOGRAPH FINDINGS: Lines and Tubes: None Lungs: No focal consolidation. Pleura: No effusion. No pneumothorax. Cardiomediastinal contours: Unremarkable Bones: No acute osseous abnormality. IMPRESSION: 1. No acute cardiopulmonary disease. EXAM: XY L FOOT 3 VIEW XRAY FINDINGS: Bones are demineralized. No acute fracture or dislocation are identified about the left foot. No cortical destruction. IMPRESSION: 1. No acute fracture of the left foot. No cortical destruction. Osseous demineralization limits evaluation. If there is concern for acute osseous abnormality, CT of the left foot is recommended. SEPSIS Sepsis Screen Date sepsis recognized/suspect: Feb 06, 2025 Time Sepsis recognized/suspect: 799 Recent Procedure: No On Antibiotic Therapy: No Respiratory Rate >20: No Heart Rate >90: No Temp<36 C (96.8 F) or >38.3 C: No SBP <90 or MAP <65 mmHG: No New Acute Mental Status Change: No Is the patient on CPAP, BIPAP,: No Physician Orders Chest Portable (02/06/25 06:20) Accucheck (02/06/25 06:20) Blood Culture (02/06/25 06:20) Cefepime 1gm/ 50ml (Maxipime 1gm/50ml) (02/06/25 10:00) Notify Md If Map <65 Or Bp<90 (02/06/25 06:20) If Map<65 Start Vasopressor (02/06/25 06:20) Sepsis Reassesment After Fluid (02/06/25 07:20) L Foot 3 View Xray (02/06/25 06:20) * Tape Rules Printing Machine Operator Consult (02/06/25 ) * Wound Consult (02/06/25 ) Wound Culture W/ Gs (02/06/25 12:01) Ct L Foot Wo Contrast (02/06/25 12:01) *Podiatry Consult Musson(Dvmg) (02/06/25 12:01) Vancomycin Per Pharmacy (02/06/25 12:15) Cefepime 1gm/ 50ml (Maxipime 1gm/50ml) (02/06/25 14:00) Clindamycin 600mg Iv (Cleocin Iv) (02/06/25 14:00) Admit (02/06/25 12:03) Code Status (02/06/25 12:03) 2 Gm Sodium Diet (02/06/25 Lunch) Hydrocodone-Acet 5/325mg Tab ([place]ade[place] /32 (02/06/25 12:15) Ondansetron Hcl (Zofran) (02/06/25 12:15) Docusate Sodium Capsule (Colace Capsule) (02/06/25 12:15) Complete Blood Count (02/07/25 04:00) Comprehensive Metabolic Panel (02/07/25 04:00) Condition: Critical (02/06/25 12:03) Acetaminophen Tablet (Tylenol Tablet) (02/06/25 12:15) Morphine Sulfate Injection (02/06/25 12:15) Metoprolol Tartrate Tablet (Lopressor Ta (02/06/25 22:00) Vital Signs Date Time Temp Pulse Resp B/P (MAP) Pulse Ox O2 Delivery O2 Flow Rate FiO2 02/06/25 10:00 66 18 149/89 (109) 97 02/06/25 09:47 73 02/06/25 09:00 69 20 149/68 (95) 95 02/06/25 08:48 69 12 149/68 02/06/25 08:18 78 14 168/73 02/06/25 08:00 97.3 77 12 168/73 (104) 100 97.3 02/06/25 08:00 77 12 100 Room Air* 0 21 02/06/25 07:00 83 13 153/84 (107) 99 02/06/25 06:40 97.9 69 11 138/68 (91) 97 97.9 02/06/25 06:30 78 11 97 Room Air* 0 21 02/06/25 06:26 97.8 96 16 154/89 (110) 99 97.8 Laboratory Tests Test 02/06/25 06:38 Lactic Acid Level 0.8 mmol/L (0.4-2.0) White Blood Count 6.9 10^3/uL (4.4-10.8) Medications Medications Dose Ordered Sig/Tony Route Start Time Stop Time Status Last Admin Dose Admin Cefepime HCl 50 ml @ 12.5 mls/hr Q12HR IV 02/06/25 10:00 02/06/25 10:13 12.5 MLS/HR Morphine Sulfate 4 mg ONCE ONCE IV 02/06/25 07:45 02/06/25 07:46 DC 02/06/25 08:18 4 MG Ondansetron HCl 4 mg ONCE ONCE IV 02/06/25 07:45 02/06/25 07:46 DC 02/06/25 08:18 4 MG Sodium Chloride 1,000 ml @ 1,000 mls/hr Q1H ONCE IV 02/06/25 06:30 02/06/25 07:29 DC 02/06/25 06:49 1,000 MLS/HR Vancomycin HCl 200 ml @ 200 mls/hr ONCE ONCE IV 02/06/25 06:30 02/06/25 07:29 DC 02/06/25 06:49 200 MLS/HR Assessment/Plan Assessment/Plan Assessment: Unspecified open wound, left foot, subsequent encounter, Complicated UTI, Hypertension, Plan: Admit to Med-Surg, Podiatry consult, Social service consult, CT left foot, IV antibiotics, Wound culture, Wound care consult, Home medications reconciled, Plan discussed with: Patient My Orders Orders - DEEPIKA GAN HOG SAWYER Procedure Category Date Status Time * Wound Consult CONS 02/06/25 Transmitted Wound Culture W/ Gs CLYDE 02/06/25 Logged 12:01 Ct L Foot Wo Contrast CT 02/06/25 Logged 12:01 *Podiatry Consult CONS 02/06/25 Transmitted Musson(Dvmg) 12:01 Vancomycin Per [facility] 02/06/25 Logged Pharmacy 12:15 Cefepime 1gm/ 50ml [facility] 02/06/25 Logged (Maxipime 1gm/50ml) 14:00 Clindamycin 600mg Iv [facility] 02/06/25 Logged (Cleocin Iv) 14:00 Admit ADMIT 02/06/25 Transmitted 12:03 Code Status CODE 02/06/25 Transmitted 12:03 2 Gm Sodium Diet DIET 02/06/25 Transmitted Lunch Hydrocodone-Acet [facility] 02/06/25 Logged 5/325mg Tab ([place] 12:15 Ondansetron Hcl [facility] 02/06/25 Logged (Zofran) 12:15 Docusate Sodium [facility]A 02/06/25 Logged Capsule (Colace 12:15 Complete Blood Count LAB 02/07/25 Verified 04:00 Comprehensive LAB 02/07/25 Verified Metabolic Panel 04:00 Condition: Critical JONATHAN 02/06/25 In Process 12:03 Acetaminophen Tablet [facility] 02/06/25 Logged (Tylenol Tablet) 12:15 Morphine Sulfate [facility] 02/06/25 Logged Injection 12:15 Metoprolol Tartrate [facility] 02/06/25 Transmitted Tablet (Lopressor Ta 22:00 Date of Service: Feb 06, 2025 Billing Provider: DEEPIKA GAN Common Visit Codes: [id number] INP/OBS CARE (MOD) DEEPIKA GAN Feb 06, 2025 12:32
[2025-02-06] MEDS: MULTIPLE VITAMIN TAB PO ONE (12:37)
[2025-02-06] MEDS: FOLIC ACID 1 MG TAB PO ONE (12:37)
[2025-02-06] MEDS: THIAMINE HCL 100 MG TAB PO ONE (12:38)
--- NOTE | 2025-02-06 13:09 | DVH ---
CLINICAL INDICATION: Left foot wound, possible osteomylitis TECHNIQUE: Noncontrast CT of the left foot was performed. Sagittal and coronal reformatted images are provided. COMPARISON: MRI MRI L FOOT WO CONTRAST on DOS: 10/24/24 CT Dose: CTDI volume is 0.07 mGy. Dose-length product is 170.1 mGy*cm FINDINGS: No fracture or dislocation. The bones are demineralized. No cortical destruction. No fracture. Soft tissue swelling in the foot especially about the great toe. Ulceration in the dorsal surface of the f oot. IMPRESSION: 1. No cortical destruction to suggest osteomyelitis. If there is concern for osteomyelitis, MRI of th e left foot is recommended. No acute fracture. 2. Soft tissue swelling and ulceration in the dorsal foot. Soft tissue swelling about the great toe w hich may reflect cellulitis. All CT scans at this medical facility are performed using dose modulation techniques as appropriate t o a performed exam including the following: Automated exposure control was utilized; adjustment of th e MA and/or KV according to patient size; and use of iterative reconstruction technique.
[2025-02-06] MEDS ORDERED: CEFEPIME 1GM/ 50ML 50 ML IV SCH (14:00)
[2025-02-06] MEDS: CLINDAMYCIN 600MG IV 50 ML IV SCH (14:10)
[2025-02-06] MEDS: ONDANSETRON HCL 4 MG/2 ML VIAL IV PRN (14:58)
[2025-02-06] MEDS: MORPHINE SULFATE INJ 2 MG/ml SYRG IV PRN (14:59)
[2025-02-06] MEDS: VANCOMYCIN 1GM/200ML PM 200 ML IV SCH (18:07)
[2025-02-06 21:00] VITALS: BP 155/73; PULSE 78; RESP 15; TEMP 98.1; O2SAT 100
[2025-02-06 21:45] VITALS: BP 155/73; PULSE 75; RESP 18; TEMP 97.8; O2SAT 100
[2025-02-06] MEDS: METOPROLOL TARTRATE 25 MG TAB PO SCH (23:58)
[2025-02-07] VITALS (8 sets, daily range): BP systolic 148–172; BP diastolic 66–89; PULSE 56–70; RESP 15–18; TEMP 97–98.2; O2SAT 91–100
[2025-02-07 07:15] LABS: Hematocrit 34.0 % (36.0-46.0); Hemoglobin 12.1 g/dL (12.2-16.2); Mean Corpuscular Hemoglobin 33.6 pg (28.0-32.0); Mean Corpuscular Volume 94.4 fL (80.0-100.0); Nucleated Red Blood Cells % 0.0 %
[2025-02-07 07:34] LABS: Alkaline Phosphatase 72 U/L (46-116); Anion Gap 9 (5-15); BUN/Creatinine Ratio 10.3 (10.0-20.0); Calcium 10.2 mg/dL (8.7-10.4); Carbon Dioxide 23 mmol/L (20-31); Chloride 105 mmol/L (98-107); Glucose 98 mg/dL (74-106); Potassium 3.6 mmol/L (3.5-5.1); Sodium 137 mmol/L (136-145); Total Protein 6.5 g/dL (5.7-8.2)
[2025-02-07 07:35] LABS: Alanine Aminotransferase < 9 U/L (7-40); Albumin 4.1 g/dL (3.2-4.8); Bilirubin, Total 0.5 mg/dL (0.2-1.0); Blood Urea Nitrogen 6 mg/dL (9-23)
[2025-02-07] MEDS: FOLIC ACID 1 MG TAB PO SCH (10:03)
[2025-02-07] MEDS: MULTIPLE VITAMIN TAB PO SCH (10:03)
[2025-02-07] MEDS: THIAMINE HCL 100 MG TAB PO SCH (10:03)
--- NOTE | 2025-02-07 12:49 | DVHINCON2 ---
Date Seen: Feb 07, 2025 Reason for Consultation Left foot wound History of Present Illness 69 y/o F, BIBA, with PMHx of HTN presents to the ED for CC of lower extremity pain. EMS reports, patient is coming from home where she c/o left foot pain d/t cellulitis of the top foot which has been present since, October 2024. Patient reports, that she had an at home wound care nurse who would follow up with care however, nurse quit after x1 month and has been unable to get care. Patient endorses pain, tenderness, and swelling to now be spreading to her toes. Patient denies trauma, injury, or fall. No other associated symptoms, modifiers, recent injuries or sick contacts present at this time. Past Medical History See H&P Past Surgical History See H&P Family History: Hypertension G8 MOTHER Other blood disorders G8 MOTHER Allergies: Coded Allergies: NO KNOWN ALLERGIES (Unverified , 10/24/24) Home Meds Active Scripts Metoprolol Tartrate (Metoprolol Tartrate) 25 Mg Tab, 1 TAB PO BID, #60 TAB 5 Refills Prov:GEORGEMICHI M CASH APPLICATIONS MANAGER 10/27/24 Discontinued Scripts Ibuprofen (Ibuprofen) 600 Mg Tab, 1 TAB PO TID PRN, #30 TAB Prov:KALYANELADIOMICHI M CASH APPLICATIONS MANAGER 10/27/24 Clindamycin Hcl (Clindamycin Hcl) 300 Mg Cap, 1 CAP PO TID, #21 CAP Prov:MICHI VAZQUEZ Margot CASH APPLICATIONS MANAGER 10/27/24 Current Medications Current Medications Medications (Trade) Dose Ordered Sig/Tony Route PRN Reason Start Time Stop Time Status Last Admin Cefepime HCl 50 ml @ 12.5 mls/hr Q8HR IV 02/06/25 14:00 UNV Clindamycin Phosphate 50 ml @ 50 mls/hr Q8HR IV 02/06/25 14:00 02/07/25 07:37 Metoprolol Tartrate (Lopressor Tablet) 25 mg BID PO 02/06/25 22:00 02/07/25 10:05 Multivitamins (Mvi Tab) 1 tab DAILY PO 02/07/25 10:00 02/07/25 10:03 Thiamine HCl 100 mg DAILY PO 02/07/25 10:00 02/07/25 10:03 Folic Acid 1 mg DAILY PO 02/07/25 10:00 02/07/25 10:03 Cefepime HCl 50 ml @ 12.5 mls/hr Q12H IV 02/06/25 22:00 Vancomycin HCl 200 ml @ 160 mls/hr Q12H IV 02/06/25 18:00 02/07/25 06:46 Vital Signs Vital Signs Date Time Temp Pulse Resp B/P (MAP) Pulse Ox O2 Delivery O2 Flow Rate FiO2 02/07/25 11:40 68 18 142/80 02/07/25 08:44 97.5 99 97.5 02/07/25 08:00 Room Air* 0 21 Physical Exam Dermatological: Skin is dry with mild erythema and some maceration around the wound site No gross deformities noted Mild non-pitting edema present bilaterally Wound: Location: Lateral foot. Measures: 5 cm in length, 4 cm in width, and 0.5 cm in depth. Depth: Full thickness Base: Mix of granulation/slough Drainage: None Odor: None Periwound: Intact Vascular: Dorsalis pedis and posterior tibial pulses are 1+ bilaterally Capillary refill is under 2 seconds Skin temperature is warm bilaterally Neurologic: Protective sensation is absent on the plantar forefoot bilaterally Monofilament testing reveals decreased sensation in multiple plantar sites Musculoskeletal: Range of motion at the ankle and MTP joints is within normal limits. Strength is 5/5 in all tested muscle groups. Labs/Diagnostic Data Labs Test 02/07/25 06:43 02/06/25 07:40 02/06/25 06:38 Range/Units White Blood Count 6.3 4.4-10.8 10^3/uL Red Blood Count 3.60 L 4.0-5.20 10^6/uL Hemoglobin 12.1 L 12.2-16.2 g/dL Hematocrit 34.0 L 36.0-46.0 % Mean Corpuscular Volume 94.4 80.0-100.0 fL Mean Corpuscular Hemoglobin 33.6 H 28.0-32.0 pg Mean Corpuscular Hemoglobin Concent 35.6 32.0-36.0 g/dL Red Cell Distribution Width 13.6 11.8-14.3 % Platelet Count 390 140-450 10^3/uL Mean Platelet Volume 5.9 L 6.9-10.8 fL Neutrophils (%) (Auto) 62.1 37.0-80.0 % Lymphocytes (%) (Auto) 17.3 10.0-50.0 % Monocytes (%) (Auto) 9.1 0.0-12.0 % Eosinophils (%) (Auto) 10.6 H 0.0-7.0 % Basophils (%) (Auto) 0.9 0.0-2.0 % Neutrophils # (Auto) 3.9 1.6-8.6 10 ^3/uL Lymphocytes # (Auto) 1.1 0.4-5.4 10 ^3/uL Monocytes # (Auto) 0.6 0-1.3 10 ^3/uL Eosinophils # (Auto) 0.7 0-0.8 10 ^3/uL Basophils # (Auto) 0.1 0-0.2 10 ^3/uL Nucleated Red Blood Cells 0.0 % Sodium Level 137 # 136-145 mmol/L Potassium Level 3.6 3.5-5.1 mmol/L Chloride Level 105 98-107 mmol/L Carbon Dioxide Level 23 20-31 mmol/L Anion Gap 9 5-15 Blood Urea Nitrogen 6 L 9-23 mg/dL Creatinine 0.58 0.550-1.02 mg/dL Glomerular Filtration Rate Calc 99 >90 mL/min BUN/Creatinine Ratio 10.3 10.0-20.0 Serum Glucose 98 74-106 mg/dL Calcium Level 10.2 8.7-10.4 mg/dL Total Bilirubin 0.5 0.2-1.0 mg/dL Aspartate Amino Transferase (AST) 18 13-40 U/L Alanine Aminotransferase (ALT) < 9 7-40 U/L Alkaline Phosphatase 72 46-116 U/L Total Protein 6.5 5.7-8.2 g/dL Albumin 4.1 3.2-4.8 g/dL Urine Color Light-yellow Yellow Urine Clarity Cloudy H Clear Urine pH 6.0 5.0-9.0 Urine Specific [place] 1.007 1.001-1.035 Urine Protein 1+ H Negative Urine Ketones Negative Negative Urine Blood 2+ H Negative /uL Urine Nitrite Negative Negative Urine Bilirubin Negative Negative Urine Urobilinogen Normal Negative mg/dL Urine Leukocyte Esterase 3+ Negative /uL Urine RBC 48 0 - 4 /hpf Urine WBC Clumps Present None Seen /hpf Urine Microscopic WBC 1624 H 0-5 /HPF Urine Squamous Epithelial Cells None seen <5 /hpf Urine Bacteria Few H None Seen /hpf Urine Glucose Normal Normal mg/dL Prothrombin Time 10.9 9.3-11.8 sec Prothrombin Time INR 1.03 0.9-1.15 Activated Partial Thromboplast Time 26.9 24.5-34.5 SEC Lactic Acid Level 0.8 0.4-2.0 mmol/L Microbiology Date/Time Source Procedure Growth Status 02/06/25 07:40 Voided Urine Urine Culture - Preliminary Resulted 02/06/25 06:38 Blood Blood Culture - Preliminary NO GROWTH AFTER 24 HOURS OF INCUBATION. Resulted Problems(with codes): (1) Nonhealing skin ulcer (2) Complicated UTI (urinary tract infection) (3) Cellulitis of left foot (4) Unspecified open wound, left foot, subsequent encounter Plan/Recommendation ASSESSMENT: Patient is a 69 year old seen on the floor for a worsening ulcer PLAN: - The patients chart was reviewed, clinical findings were discussed with the patient, the etiologies of the conditions were discussed in detail, and a treatment plan was agreed to at this time, with both oral and written instructions provided. - reviewed advanced imaging - recommend we get an MRI to rule out any deeper infection - if MRI comes back normal just treat for cellulitis - we will need wound care at home - Medihoney on the wound and adaptic All questions were answered and concerns addressed to the patient's satisfaction. The patient was given the phone number to the clinic and was told how to make contact with the clinic should any concerns or questions arise. Patient understands that if any questions or concerns arise prior to the next appointment, we should be contacted immediately. FOLLOW-UP: Continue to follow while inpatient Plan discussed with: Patient Date of Service: Feb 07, 2025 Billing Provider: JIMENEZ MUÑIZ DPM Common Visit Codes: CONSULT ONLY Consultation Codes: [id number] CONSULT <80MIN JIMENEZ MUÑIZ DPM Feb 07, 2025 12:49
[2025-02-07] MEDS: HYDROcodone-ACET 5/325MG TAB PO PRN (14:18)
--- NOTE | 2025-02-07 18:18 | DVH ---
EXAM: MRI MRI L FOOT WO CONTRAST INDICATION: r/o OM TECHNIQUE: Multiplanar, multisequence imaging of the left foot without contrast COMPARISON: CT CT L FOOT WO CONTRAST on DOS: 02/06/25 FINDINGS: BONES: No MR evidence of an acute fracture, osseous contusion, or aggressive focal osseous lesion. In regards to the clinical question, definitive MR evidence of osteomyelitis. Presumed phlegmon/Subcuta neous tissue edema overlying the toes without drainable fluid collection. MUSCLES: Diffuse muscle edema of the intrinsic musculature. No fatty infiltration. TENDONS: No tenosynovitis LIGAMENTS: Intact. JOINT SPACES: No joint effusion. NEUROVASCULAR: Normal. OTHER: None. IMPRESSION: 1. In regards to the clinical question, definitive MR evidence of osteomyelitis. Presumed phlegmon/[place] bcutaneous tissue edema overlying the toes without drainable fluid collection.
--- NOTE | 2025-02-07 18:44 | DVHPN2 ---
Subjective THIS IS A FOLLOW UP ON 69-YEAR-OLD FEMALE WITH A KNOWN HISTORY OF CHRONIC LEFT FOOT WOUND FOUND TO HAVE OSTEOMYELITIS OF THE LEFT FOOT. Changes from previous H/P or p: No Changes Eyes: No Pain, No Vision change, No Conjunctivae inflammation, No Eyelid inflammation, No Other, No Redness ENT: No Ear pain, No Ear discharge, No Nose pain, No Nose discharge, No Nose congestion, No Mouth pain, No Mouth swelling, No Throat pain, No Throat swelling, No Other Cardiovascular: No Chest Pain, No Palpitations, No Orthopnea, No Paroxysmal Noc. Dyspnea, No Edema, No Lt Headedness, No Other Respiratory: No Cough, No Dry, No Shortness of breath, No SOB with excertion, No Wheezing, No Hemoptysis, No Pleuritic Pain, No Sputum, No Other Gastrointestinal: No Nausea, No Vomiting, No Abdominal Pain, No Diarrhea, No Constipation, No Melena, No Hematochezia, No Other Genitourinary: No Dysuria, No Frequency, No Incontinence, No Hematuria, No Retention, No Other Musculoskeletal: No other, No neck pain, No shoulder pain, No arm pain, No back pain, No hand pain, No leg pain; foot pain (left) Skin: No Rash; Lesions (left foot); No Jaundice, No Bruising, No Other Objective Vitals Vital Signs Date Time Temp Pulse Resp B/P (MAP) Pulse Ox O2 Delivery O2 Flow Rate FiO2 02/07/25 16:35 98.0 59 18 160/88 (112) 94 98.0 02/07/25 08:00 Room Air* 0 21 Intake/Output Intake and Output 02/07/25 07:00 Intake Total 1900.0 ml Balance 1900.0 ml Intake Oral 300 ml IV Total 1600.0 ml # Voids 4 Exam HEENT PUPILS ARE REACTIVE NECK IS SUPPLE CV IS S1-S2 REGULAR RATE AND RHYTHM RESPIRATORY DIMINISHED BREATH SOUNDS BASES GI POSITIVE BOWEL SOUND EXTREMITY NO EDEMA CASHIER ASSISTANT NO MOTOR DEFICIT LEFT FOOT HAS A ANTISEPTIC DRESSING. Medications Current Medications Medications Dose Ordered Sig/Tony Route Start Time Stop Time Status Last Admin Dose Admin Vancomycin HCl 0 ml @ 0 mls/hr UD IV 02/06/25 12:15 Cefepime HCl 50 ml @ 12.5 mls/hr Q8HR IV 02/06/25 14:00 UNV Clindamycin Phosphate 50 ml @ 50 mls/hr Q8HR IV 02/06/25 14:00 02/07/25 13:01 50 MLS/HR Acetaminophen/ Hydrocodone Bitart 1 tab Q4HP PRN PO 02/06/25 12:15 02/07/25 14:18 1 TAB Ondansetron HCl 4 mg Q4HP PRN IV 02/06/25 12:15 02/07/25 11:44 4 MG Docusate Sodium 100 mg BIDPRN PRN PO 02/06/25 12:15 Acetaminophen 650 mg Q6HP PRN PO 02/06/25 12:15 Morphine Sulfate 2 mg Q4HPRN PRN IV 02/06/25 12:15 02/07/25 11:40 2 MG Metoprolol Tartrate 25 mg BID PO 02/06/25 22:00 02/07/25 10:05 25 MG Multivitamins 1 tab DAILY PO 02/07/25 10:00 02/07/25 10:03 1 TAB Thiamine HCl 100 mg DAILY PO 02/07/25 10:00 02/07/25 10:03 100 MG Folic Acid 1 mg DAILY PO 02/07/25 10:00 02/07/25 10:03 1 MG Lorazepam 1 mg Q2HP PRN IV 02/06/25 12:15 Cefepime HCl 50 ml @ 12.5 mls/hr Q12H IV 02/06/25 22:00 Vancomycin HCl 150 ml @ 150 mls/hr Q12H IV 02/07/25 20:00 Laboratory Results Laboratory Tests 02/07/25 06:43 Chemistry Test 02/07/25 06:43 Albumin 4.1 g/dL (3.2-4.8) Calcium Level 10.2 mg/dL (8.7-10.4) Total Protein 6.5 g/dL (5.7-8.2) LFT Test 02/07/25 06:43 Alanine Aminotransferase (ALT) < 9 U/L (7-40) Alkaline Phosphatase 72 U/L (46-116) Aspartate Amino Transferase (AST) 18 U/L (13-40) Total Bilirubin 0.5 mg/dL (0.2-1.0) Urinalysis Test 02/06/25 07:40 Urine Color Light-yellow (Yellow) Urine Clarity Cloudy (Clear) H Urine pH 6.0 (5.0-9.0) Urine Specific [place] 1.007 (1.001-1.035) Urine Protein 1+ (Negative) H Urine Ketones Negative (Negative) Urine Blood 2+ /uL (Negative) H Urine Nitrite Negative (Negative) Urine Bilirubin Negative (Negative) Urine Urobilinogen Normal mg/dL (Negative) Urine Leukocyte Esterase 3+ /uL (Negative) Urine RBC 48 /hpf (0 - 4) Urine WBC Clumps Present /hpf (None Seen) Urine Microscopic WBC 1624 /HPF (0-5) H Urine Squamous Epithelial Cells None seen /hpf (<5) Urine Bacteria Few /hpf (None Seen) H Urine Glucose Normal mg/dL (Normal) Microbiology Microbiology Date/Time Source Procedure Growth Status 02/06/25 07:40 Voided Urine Urine Culture - Preliminary Resulted 02/06/25 06:38 Blood Blood Culture - Preliminary NO GROWTH AFTER 24 HOURS OF INCUBATION. Resulted Assessment/Plan Assessment/Plan 69-YEAR-OLD FEMALE WITH A KNOWN HISTORY OF HYPERTENSION INITIALLY PRESENTED TO HOSPITAL WITH A LEFT FOOT WOUND FOUND TO HAVE 1. LEFT FOOT WOUND WITH A CELLULITIS 2. LEFT FOOT OSTEOMYELITIS 3. HYPERTENSION 4. UTI -IV ANTIBIOTICS, PODIATRY CONSULTATION, INFECTIOUS DISEASE CONSULTATION. WOUND CARE Plan discussed with: Patient My Orders Orders - MAHIN ARNOLD MD Procedure Category Date Status Time Wound Culture W/ Gs CLYDE 02/07/25 In Process 11:42 Apply Barrier Cream JONATHAN 02/07/25 In Process 11:40 * Infectious [place]- CONS 02/07/25 Transmitted Wes Merchant 18:41 Date of Service: Feb 07, 2025 Billing Provider: MAHIN ARNOLD MD Common Visit Codes: [id number] INP/OBS CARE(MOD), [id number] INP/OBS CARE(HIGH) MAHIN ARNOLD MD Feb 07, 2025 18:44
[2025-02-07] MEDS: VANCOMYCIN 750mg/150ml 150 ML IV SCH (21:07)
[2025-02-08] VITALS (8 sets, daily range): BP systolic 144–185; BP diastolic 66–94; PULSE 58–76; RESP 16–20; TEMP 97.7–98.8; O2SAT 95–100
--- NOTE | 2025-02-08 15:34 | DVHPN2 ---
Subjective THIS IS A FOLLOW UP ON 69-YEAR-OLD FEMALE WITH A KNOWN HISTORY OF CHRONIC LEFT FOOT WOUND FOUND TO HAVE OSTEOMYELITIS OF THE LEFT FOOT. Changes from previous H/P or p: No Changes Eyes: No Pain, No Vision change, No Conjunctivae inflammation, No Eyelid inflammation, No Other, No Redness ENT: No Ear pain, No Ear discharge, No Nose pain, No Nose discharge, No Nose congestion, No Mouth pain, No Mouth swelling, No Throat pain, No Throat swelling, No Other Cardiovascular: No Chest Pain, No Palpitations, No Orthopnea, No Paroxysmal Noc. Dyspnea, No Edema, No Lt Headedness, No Other Respiratory: No Cough, No Dry, No Shortness of breath, No SOB with excertion, No Wheezing, No Hemoptysis, No Pleuritic Pain, No Sputum, No Other Gastrointestinal: No Nausea, No Vomiting, No Abdominal Pain, No Diarrhea, No Constipation, No Melena, No Hematochezia, No Other Genitourinary: No Dysuria, No Frequency, No Incontinence, No Hematuria, No Retention, No Other Musculoskeletal: No other, No neck pain, No shoulder pain, No arm pain, No back pain, No hand pain, No leg pain; foot pain (left) Skin: No Rash; Lesions (left foot); No Jaundice, No Bruising, No Other Objective Vitals Vital Signs Date Time Temp Pulse Resp B/P (MAP) Pulse Ox O2 Delivery O2 Flow Rate FiO2 02/08/25 13:00 97.9 58 20 152/75 (100) 96 97.9 02/08/25 08:00 Room Air* 0 21 Intake/Output Intake and Output 02/08/25 07:00 Intake Total 1550 ml Balance 1550 ml Intake Oral 900 ml IV Total 650 ml # Voids 7 Exam HEENT PUPILS ARE REACTIVE NECK IS SUPPLE CV IS S1-S2 REGULAR RATE AND RHYTHM RESPIRATORY DIMINISHED BREATH SOUNDS BASES GI POSITIVE BOWEL SOUND EXTREMITY NO EDEMA DIRECTOR 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 Medications Current Medications Medications Dose Ordered Sig/Tony Route Start Time Stop Time Status Last Admin Dose Admin Vancomycin HCl 0 ml @ 0 mls/hr UD IV 02/06/25 12:15 Cefepime HCl 50 ml @ 12.5 mls/hr Q8HR IV 02/06/25 14:00 UNV Clindamycin Phosphate 50 ml @ 50 mls/hr Q8HR IV 02/06/25 14:00 02/08/25 13:09 50 MLS/HR Acetaminophen/ Hydrocodone Bitart 1 tab Q4HP PRN PO 02/06/25 12:15 02/08/25 08:37 1 TAB Ondansetron HCl 4 mg Q4HP PRN IV 02/06/25 12:15 02/08/25 10:26 4 MG Docusate Sodium 100 mg BIDPRN PRN PO 02/06/25 12:15 Acetaminophen 650 mg Q6HP PRN PO 02/06/25 12:15 Morphine Sulfate 2 mg Q4HPRN PRN IV 02/06/25 12:15 02/08/25 10:25 2 MG Metoprolol Tartrate 25 mg BID PO 02/06/25 22:00 02/08/25 10:23 25 MG Multivitamins 1 tab DAILY PO 02/07/25 10:00 02/08/25 10:24 1 TAB Thiamine HCl 100 mg DAILY PO 02/07/25 10:00 02/08/25 10:24 100 MG Folic Acid 1 mg DAILY PO 02/07/25 10:00 02/08/25 10:23 1 MG Lorazepam 1 mg Q2HP PRN IV 02/06/25 12:15 Cefepime HCl 50 ml @ 12.5 mls/hr Q12H IV 02/06/25 22:00 02/08/25 10:22 12.5 MLS/HR Vancomycin HCl 150 ml @ 150 mls/hr Q12H IV 02/07/25 20:00 02/08/25 08:27 150 MLS/HR Hydralazine HCl 10 mg Q4HP PRN IV 02/08/25 09:15 Laboratory Results Laboratory Tests 02/07/25 06:43 02/08/25 09:15 Urinalysis Test 02/06/25 07:40 Urine Color Light-yellow (Yellow) Urine Clarity Cloudy (Clear) H Urine pH 6.0 (5.0-9.0) Urine Specific [place] 1.007 (1.001-1.035) Urine Protein 1+ (Negative) H Urine Ketones Negative (Negative) Urine Blood 2+ /uL (Negative) H Urine Nitrite Negative (Negative) Urine Bilirubin Negative (Negative) Urine Urobilinogen Normal mg/dL (Negative) Urine Leukocyte Esterase 3+ /uL (Negative) Urine RBC 48 /hpf (0 - 4) Urine WBC Clumps Present /hpf (None Seen) Urine Microscopic WBC 1624 /HPF (0-5) H Urine Squamous Epithelial Cells None seen /hpf (<5) Urine Bacteria Few /hpf (None Seen) H Urine Glucose Normal mg/dL (Normal) Microbiology Microbiology Date/Time Source Procedure Growth Status 02/07/25 11:42 Foot Left Gram Stain - Final Resulted 02/07/25 11:42 Foot Left Wound Culture - Preliminary Resulted 02/06/25 07:40 Voided Urine Urine Culture - Final Escherichia coli Complete 02/06/25 06:38 Blood Blood Culture - Preliminary NO GROWTH AFTER 48 HOURS OF INCUBATION. Resulted Assessment/Plan Assessment/Plan 69-YEAR-OLD FEMALE WITH A KNOWN HISTORY OF HYPERTENSION INITIALLY PRESENTED TO HOSPITAL WITH A LEFT FOOT WOUND FOUND TO HAVE 1. LEFT FOOT WOUND WITH A CELLULITIS 2. LEFT FOOT OSTEOMYELITIS 3. HYPERTENSION 4. UTI 5. Vaginal discharge -gynecology consultation. -IV ANTIBIOTICS, PODIATRY CONSULTATION, INFECTIOUS DISEASE CONSULTATION. WOUND CARE Plan discussed with: Patient My Orders Orders - MAHIN ARNOLD MD Procedure Category Date Status Time * Infectious [place]- Dr. CONS 02/07/25 Transmitted Wes Merchant 18:41 Hydralazine Injection PHA 02/08/25 In Process (Apresoline Inject 09:15 Date of Service: Feb 08, 2025 Billing Provider: MAHIN ARNOLD MD Common Visit Codes: [id number] INP/OBS CARE(MOD) MAHIN ARNOLD MD Feb 08, 2025 15:34
[2025-02-08] MEDS: hydrALAZINE HCL 20 MG/ML VL IV PRN (17:18)
[2025-02-09] VITALS (8 sets, daily range): BP systolic 108–164; BP diastolic 60–84; PULSE 65–84; RESP 17–18; TEMP 97–98.7; O2SAT 95–99
--- NOTE | 2025-02-09 13:21 | DVHPN2 ---
Subjective 69 y/o F, BIBA, with PMHx of HTN presents to the ED for CC of lower extremity pain. EMS reports, patient is coming from home where she c/o left foot pain d/t cellulitis of the top foot which has been present since, October 2024. Patient reports, that she had an at home wound care nurse who would follow up with care however, nurse quit after x1 month and has been unable to get care. Patient endorses pain, tenderness, and swelling to now be spreading to her toes. Patient denies trauma, injury, or fall. No other associated symptoms, modifiers, recent injuries or sick contacts present at this time. Changes from previous H/P or p: No Changes Eyes: No Pain, No Vision change, No Conjunctivae inflammation, No Eyelid inflammation, No Other, No Redness ENT: No Ear pain, No Ear discharge, No Nose pain, No Nose discharge, No Nose congestion, No Mouth pain, No Mouth swelling, No Throat pain, No Throat swelling, No Other Cardiovascular: No Chest Pain, No Palpitations, No Orthopnea, No Paroxysmal Noc. Dyspnea, No Edema, No Lt Headedness, No Other Respiratory: No Cough, No Dry, No Shortness of breath, No SOB with excertion, No Wheezing, No Hemoptysis, No Pleuritic Pain, No Sputum, No Other Gastrointestinal: No Nausea, No Vomiting, No Abdominal Pain, No Diarrhea, No Constipation, No Melena, No Hematochezia, No Other Genitourinary: No Dysuria, No Frequency, No Incontinence, No Hematuria, No Retention, No Other Musculoskeletal: No other, No neck pain, No shoulder pain, No arm pain, No back pain, No hand pain, No leg pain; foot pain (left) Skin: No Rash; Lesions (left foot); No Jaundice, No Bruising, No Other Objective Vitals Vital Signs Date Time Temp Pulse Resp B/P (MAP) Pulse Ox O2 Delivery O2 Flow Rate FiO2 02/09/25 10:54 71 143/66 02/09/25 10:46 17 02/09/25 10:00 97.9 98 97.9 02/08/25 20:00 Room Air* 0 21 Intake/Output Intake and Output 02/09/25 07:00 Intake Total 1950 ml Output Total 600 ml Balance 1350 ml Intake Oral 1400 ml IV Total 550 ml Output Urine Total 600 ml # Voids 7 Exam Dermatological: Skin is dry with mild erythema and some maceration around the wound site No gross deformities noted Mild non-pitting edema present bilaterally Wound: Location: Lateral foot. Measures: 5 cm in length, 4 cm in width, and 0.5 cm in depth. Depth: Full thickness Base: Mix of granulation/slough Drainage: None Odor: None Periwound: Intact Vascular: Dorsalis pedis and posterior tibial pulses are 1+ bilaterally Capillary refill is under 2 seconds Skin temperature is warm bilaterally Neurologic: Protective sensation is absent on the plantar forefoot bilaterally Monofilament testing reveals decreased sensation in multiple plantar sites Musculoskeletal: Range of motion at the ankle and MTP joints is within normal limits. Strength is 5/5 in all tested muscle groups. Medications Current Medications Medications Dose Ordered Sig/Tony Route Start Time Stop Time Status Last Admin Dose Admin Vancomycin HCl 0 ml @ 0 mls/hr UD IV 02/06/25 12:15 Cefepime HCl 50 ml @ 12.5 mls/hr Q8HR IV 02/06/25 14:00 UNV Clindamycin Phosphate 50 ml @ 50 mls/hr Q8HR IV 02/06/25 14:00 02/09/25 05:53 50 MLS/HR Acetaminophen/ Hydrocodone Bitart 1 tab Q4HP PRN PO 02/06/25 12:15 02/08/25 16:28 1 TAB Ondansetron HCl 4 mg Q4HP PRN IV 02/06/25 12:15 02/08/25 17:43 4 MG Docusate Sodium 100 mg BIDPRN PRN PO 02/06/25 12:15 Acetaminophen 650 mg Q6HP PRN PO 02/06/25 12:15 Morphine Sulfate 2 mg Q4HPRN PRN IV 02/06/25 12:15 02/09/25 10:46 2 MG Metoprolol Tartrate 25 mg BID PO 02/06/25 22:00 02/09/25 10:54 25 MG Multivitamins 1 tab DAILY PO 02/07/25 10:00 02/09/25 10:54 1 TAB Thiamine HCl 100 mg DAILY PO 02/07/25 10:00 02/09/25 11:01 100 MG Folic Acid 1 mg DAILY PO 02/07/25 10:00 02/09/25 10:54 1 MG Lorazepam 1 mg Q2HP PRN IV 02/06/25 12:15 Cefepime HCl 50 ml @ 12.5 mls/hr Q12H IV 02/06/25 22:00 02/09/25 10:54 12.5 MLS/HR Hydralazine HCl 10 mg Q4HP PRN IV 02/08/25 09:15 02/08/25 17:18 10 MG Vancomycin HCl 150 ml @ 150 mls/hr Q12H IV 02/09/25 20:00 UNV Laboratory Results Laboratory Tests 02/07/25 06:43 02/09/25 09:12 Urinalysis Test 02/06/25 07:40 Urine Color Light-yellow (Yellow) Urine Clarity Cloudy (Clear) H Urine pH 6.0 (5.0-9.0) Urine Specific [place] 1.007 (1.001-1.035) Urine Protein 1+ (Negative) H Urine Ketones Negative (Negative) Urine Blood 2+ /uL (Negative) H Urine Nitrite Negative (Negative) Urine Bilirubin Negative (Negative) Urine Urobilinogen Normal mg/dL (Negative) Urine Leukocyte Esterase 3+ /uL (Negative) Urine RBC 48 /hpf (0 - 4) Urine WBC Clumps Present /hpf (None Seen) Urine Microscopic WBC 1624 /HPF (0-5) H Urine Squamous Epithelial Cells None seen /hpf (<5) Urine Bacteria Few /hpf (None Seen) H Urine Glucose Normal mg/dL (Normal) Microbiology Microbiology Date/Time Source Procedure Growth Status 02/07/25 11:42 Foot Left Gram Stain - Final Resulted 02/07/25 11:42 Foot Left Wound Culture - Preliminary Resulted 02/06/25 07:40 Voided Urine Urine Culture - Final Escherichia coli Complete 02/06/25 06:38 Blood Blood Culture - Preliminary NO GROWTH AFTER 72 HOURS OF INCUBATION. Resulted Assessment/Plan Assessment/Plan ASSESSMENT: Patient is a 69-year-old seen on the floor for follow up of a worsening ulcer PLAN: - The patients chart was reviewed, clinical findings were discussed with the patient, the etiologies of the conditions were discussed in detail, and a treatment plan was agreed to at this time, with both oral and written instructions provided. - reviewed advanced imaging - to reviewing MRI discussed no surgical intervention required at this point - patient needs outpatient wound care - whether that is home health or discharge to facility, need someone to take care of it - recommend Medihoney Adaptic dressing - follow up with me as an outpatient All questions were answered and concerns addressed to the patient's satisfaction. The patient was given the phone number to the clinic and was told how to make contact with the clinic should any concerns or questions arise. Patient understands that if any questions or concerns arise prior to the next appointment, we should be contacted immediately. FOLLOW-UP: Continue to follow while inpatient Plan discussed with: Patient Problem List: (1) Complicated UTI (urinary tract infection) (2) Cellulitis of left foot (3) Unspecified open wound, left foot, subsequent encounter (4) Nonhealing skin ulcer Date of Service: Feb 09, 2025 Billing Provider: JIMENEZ MUÑIZ DPM Common Visit Codes: [id number] INP/OBS CARE(HIGH) JIMENEZ MUÑIZ DPM Feb 09, 2025 13:21
--- NOTE | 2025-02-09 17:48 | DVHPN2 ---
Subjective THIS IS A FOLLOW UP ON 69-YEAR-OLD FEMALE WITH A KNOWN HISTORY OF CHRONIC LEFT FOOT WOUND FOUND TO HAVE OSTEOMYELITIS OF THE LEFT FOOT. Changes from previous H/P or p: No Changes Eyes: No Pain, No Vision change, No Conjunctivae inflammation, No Eyelid inflammation, No Other, No Redness ENT: No Ear pain, No Ear discharge, No Nose pain, No Nose discharge, No Nose congestion, No Mouth pain, No Mouth swelling, No Throat pain, No Throat swelling, No Other Cardiovascular: No Chest Pain, No Palpitations, No Orthopnea, No Paroxysmal Noc. Dyspnea, No Edema, No Lt Headedness, No Other Respiratory: No Cough, No Dry, No Shortness of breath, No SOB with excertion, No Wheezing, No Hemoptysis, No Pleuritic Pain, No Sputum, No Other Gastrointestinal: No Nausea, No Vomiting, No Abdominal Pain, No Diarrhea, No Constipation, No Melena, No Hematochezia, No Other Genitourinary: No Dysuria, No Frequency, No Incontinence, No Hematuria, No Retention, No Other Musculoskeletal: No other, No neck pain, No shoulder pain, No arm pain, No back pain, No hand pain, No leg pain; foot pain (left) Skin: No Rash; Lesions (left foot); No Jaundice, No Bruising, No Other Objective Vitals Vital Signs Date Time Temp Pulse Resp B/P (MAP) Pulse Ox O2 Delivery O2 Flow Rate FiO2 02/09/25 15:48 69 18 164/80 02/09/25 13:00 97.9 99 97.9 02/09/25 08:00 Room Air* 0 21 Intake/Output Intake and Output 02/09/25 07:00 Intake Total 1950 ml Output Total 600 ml Balance 1350 ml Intake Oral 1400 ml IV Total 550 ml Output Urine Total 600 ml # Voids 7 Exam HEENT PUPILS ARE REACTIVE NECK IS SUPPLE CV IS S1-S2 REGULAR RATE AND RHYTHM RESPIRATORY DIMINISHED BREATH SOUNDS BASES GI POSITIVE BOWEL SOUND EXTREMITY NO EDEMA BUYER NO MOTOR DEFICIT LEFT FOOT HAS A ANTISEPTIC DRESSING. Medications Current Medications Medications Dose Ordered Sig/Tony Route Start Time Stop Time Status Last Admin Dose Admin Vancomycin HCl 0 ml @ 0 mls/hr UD IV 02/06/25 12:15 Cefepime HCl 50 ml @ 12.5 mls/hr Q8HR IV 02/06/25 14:00 UNV Clindamycin Phosphate 50 ml @ 50 mls/hr Q8HR IV 02/06/25 14:00 02/09/25 15:04 50 MLS/HR Acetaminophen/ Hydrocodone Bitart 1 tab Q4HP PRN PO 02/06/25 12:15 02/08/25 16:28 1 TAB Ondansetron HCl 4 mg Q4HP PRN IV 02/06/25 12:15 02/08/25 17:43 4 MG Docusate Sodium 100 mg BIDPRN PRN PO 02/06/25 12:15 Acetaminophen 650 mg Q6HP PRN PO 02/06/25 12:15 Morphine Sulfate 2 mg Q4HPRN PRN IV 02/06/25 12:15 02/09/25 15:18 2 MG Metoprolol Tartrate 25 mg BID PO 02/06/25 22:00 02/09/25 10:54 25 MG Multivitamins 1 tab DAILY PO 02/07/25 10:00 02/09/25 10:54 1 TAB Thiamine HCl 100 mg DAILY PO 02/07/25 10:00 02/09/25 11:01 100 MG Folic Acid 1 mg DAILY PO 02/07/25 10:00 02/09/25 10:54 1 MG Lorazepam 1 mg Q2HP PRN IV 02/06/25 12:15 Cefepime HCl 50 ml @ 12.5 mls/hr Q12H IV 02/06/25 22:00 02/09/25 10:54 12.5 MLS/HR Hydralazine HCl 10 mg Q4HP PRN IV 02/08/25 09:15 02/08/25 17:18 10 MG Vancomycin HCl 150 ml @ 150 mls/hr Q12H IV 02/09/25 20:00 Laboratory Results Laboratory Tests 02/07/25 06:43 02/09/25 09:12 Urinalysis Test 02/06/25 07:40 Urine Color Light-yellow (Yellow) Urine Clarity Cloudy (Clear) H Urine pH 6.0 (5.0-9.0) Urine Specific [place] 1.007 (1.001-1.035) Urine Protein 1+ (Negative) H Urine Ketones Negative (Negative) Urine Blood 2+ /uL (Negative) H Urine Nitrite Negative (Negative) Urine Bilirubin Negative (Negative) Urine Urobilinogen Normal mg/dL (Negative) Urine Leukocyte Esterase 3+ /uL (Negative) Urine RBC 48 /hpf (0 - 4) Urine WBC Clumps Present /hpf (None Seen) Urine Microscopic WBC 1624 /HPF (0-5) H Urine Squamous Epithelial Cells None seen /hpf (<5) Urine Bacteria Few /hpf (None Seen) H Urine Glucose Normal mg/dL (Normal) Microbiology Microbiology Date/Time Source Procedure Growth Status 02/07/25 11:42 Foot Left Gram Stain - Final Resulted 02/07/25 11:42 Foot Left Wound Culture - Preliminary Resulted 02/06/25 07:40 Voided Urine Urine Culture - Final Escherichia coli Complete 02/06/25 06:38 Blood Blood Culture - Preliminary NO GROWTH AFTER 72 HOURS OF INCUBATION. Resulted Assessment/Plan Assessment/Plan 69-YEAR-OLD FEMALE WITH A KNOWN HISTORY OF HYPERTENSION INITIALLY PRESENTED TO HOSPITAL WITH A LEFT FOOT WOUND FOUND TO HAVE 1. LEFT FOOT WOUND WITH A CELLULITIS 2. LEFT FOOT OSTEOMYELITIS 3. HYPERTENSION 4. UTI 5. Vaginal discharge -gynecology consultation. -IV ANTIBIOTICS, PODIATRY CONSULTATION, INFECTIOUS DISEASE CONSULTATION. WOUND CARE Plan discussed with: Patient My Orders Orders - MAHIN ARNOLD MD Procedure Category Date Status Time * Picc Line Consult CONS 02/09/25 Transmitted 16:34 Date of Service: Feb 09, 2025 Billing Provider: MAHIN ARNOLD MD Common Visit Codes: [id number] INP/OBS CARE(MOD) MAHIN ARNOLD MD Feb 09, 2025 17:48
--- NOTE | 2025-02-09 18:36 | DVHINCON2 ---
Date of service: Feb 08, 2025 Family History: Hypertension G8 MOTHER Other blood disorders G8 MOTHER Allergies: Coded Allergies: NO KNOWN ALLERGIES (Unverified , 10/24/24) Home Meds Active Scripts Metronidazole (Flagyl) 500 Mg Tab, 500 MG PO TID for 14 Days, #42 TAB Prov:ARTURO MERCHANT MD 02/10/25 Metoprolol Tartrate (Metoprolol Tartrate) 25 Mg Tab, 1 TAB PO BID, #60 TAB 5 Refills Prov:MICHI VAZQUEZ Margot COREY 10/27/24 Discontinued Scripts Ibuprofen (Ibuprofen) 600 Mg Tab, 1 TAB PO TID PRN, #30 TAB Prov:MICHI VAZQUEZ Margot COREY 10/27/24 Clindamycin Hcl (Clindamycin Hcl) 300 Mg Cap, 1 CAP PO TID, #21 CAP Prov:MICHI VAZQUEZ NETWORKING ENGINEER 10/27/24 Current Medications Current Medications Medications (Trade) Dose Ordered Sig/Tony Route PRN Reason Start Time Stop Time Status Last Admin Vancomycin HCl 150 ml @ 150 mls/hr Q12H IV 02/09/25 20:00 Vital Signs Vital Signs Date Time Temp Pulse Resp B/P (MAP) Pulse Ox O2 Delivery O2 Flow Rate FiO2 02/09/25 17:00 98.7 69 18 164/80 (108) 96 98.7 02/09/25 08:00 Room Air* 0 21 Labs/Diagnostic Data Labs Test 02/09/25 09:12 02/07/25 16:54 02/07/25 06:43 02/06/25 07:40 Range/Units Creatinine 0.57 0.550-1.02 mg/dL Glomerular Filtration Rate Calc 99 >90 mL/min Vancomycin Level Trough 16.8 H 5-10 ug/mL White Blood Count 6.3 4.4-10.8 10^3/uL Red Blood Count 3.60 L 4.0-5.20 10^6/uL Hemoglobin 12.1 L 12.2-16.2 g/dL Hematocrit 34.0 L 36.0-46.0 % Mean Corpuscular Volume 94.4 80.0-100.0 fL Mean Corpuscular Hemoglobin 33.6 H 28.0-32.0 pg Mean Corpuscular Hemoglobin Concent 35.6 32.0-36.0 g/dL Red Cell Distribution Width 13.6 11.8-14.3 % Platelet Count 390 140-450 10^3/uL Mean Platelet Volume 5.9 L 6.9-10.8 fL Neutrophils (%) (Auto) 62.1 37.0-80.0 % Lymphocytes (%) (Auto) 17.3 10.0-50.0 % Monocytes (%) (Auto) 9.1 0.0-12.0 % Eosinophils (%) (Auto) 10.6 H 0.0-7.0 % Basophils (%) (Auto) 0.9 0.0-2.0 % Neutrophils # (Auto) 3.9 1.6-8.6 10 ^3/uL Lymphocytes # (Auto) 1.1 0.4-5.4 10 ^3/uL Monocytes # (Auto) 0.6 0-1.3 10 ^3/uL Eosinophils # (Auto) 0.7 0-0.8 10 ^3/uL Basophils # (Auto) 0.1 0-0.2 10 ^3/uL Nucleated Red Blood Cells 0.0 % Sodium Level 137 # 136-145 mmol/L Potassium Level 3.6 3.5-5.1 mmol/L Chloride Level 105 98-107 mmol/L Carbon Dioxide Level 23 20-31 mmol/L Anion Gap 9 5-15 Blood Urea Nitrogen 6 L 9-23 mg/dL BUN/Creatinine Ratio 10.3 10.0-20.0 Serum Glucose 98 74-106 mg/dL Calcium Level 10.2 8.7-10.4 mg/dL Total Bilirubin 0.5 0.2-1.0 mg/dL Aspartate Amino Transferase (AST) 18 13-40 U/L Alanine Aminotransferase (ALT) < 9 7-40 U/L Alkaline Phosphatase 72 46-116 U/L Total Protein 6.5 5.7-8.2 g/dL Albumin 4.1 3.2-4.8 g/dL Urine Color Light-yellow Yellow Urine Clarity Cloudy H Clear Urine pH 6.0 5.0-9.0 Urine Specific [place] 1.007 1.001-1.035 Urine Protein 1+ H Negative Urine Ketones Negative Negative Urine Blood 2+ H Negative /uL Urine Nitrite Negative Negative Urine Bilirubin Negative Negative Urine Urobilinogen Normal Negative mg/dL Urine Leukocyte Esterase 3+ Negative /uL Urine RBC 48 0 - 4 /hpf Urine WBC Clumps Present None Seen /hpf Urine Microscopic WBC 1624 H 0-5 /HPF Urine Squamous Epithelial Cells None seen <5 /hpf Urine Bacteria Few H None Seen /hpf Urine Glucose Normal Normal mg/dL Test 02/06/25 06:38 Range/Units Prothrombin Time 10.9 9.3-11.8 sec Prothrombin Time INR 1.03 0.9-1.15 Activated Partial Thromboplast Time 26.9 24.5-34.5 SEC Lactic Acid Level 0.8 0.4-2.0 mmol/L Microbiology Date/Time Source Procedure Growth Status 02/07/25 11:42 Foot Left Gram Stain - Final Resulted 02/07/25 11:42 Foot Left Wound Culture - Preliminary Resulted 02/06/25 07:40 Voided Urine Urine Culture - Final Escherichia coli Complete 02/06/25 06:38 Blood Blood Culture - Preliminary NO GROWTH AFTER 72 HOURS OF INCUBATION. Resulted Problems(with codes): (1) Nonhealing skin ulcer (2) Unspecified open wound, left foot, subsequent encounter (3) Cellulitis of left foot (4) Complicated UTI (urinary tract infection) Plan/Recommendation ASSESSMENT AND PLAN: ID Problem List: \-- Left dorsal foot ulcer, chronic \-- Suspected cellulitis \-- Possible osteomyelitis (MRI interpretation uncertain) \-- Edema of left lower extremity \-- Hypertension \-- Alcohol abuse Assessment This is a 69 y.o. female with a history of hypertension and alcohol abuse who presents with a chronic, persistent ulcer of the dorsal aspect of the left foot since October. The wound has been progressively worsening, becoming erythematous, swollen, tender, and is now limiting ambulation. She has received ongoing wound care and oral antibiotics; however, symptoms persist. On exam, she has left leg edema and an open ulcer with purulent drainage. Laboratory findings include pyuria and leukocyte esterase in urine, but otherwise unremarkable labs (WBC 6.9, Hgb 11.9, platelets 427). Lactic acid 0.8. Creatinine 6.8. Cultures have grown mello-sensitive E. coli and wound cultures show diphtheroids. Imaging: -Chest X-ray: Unremarkable. -X-ray, CT of left foot: No acute fracture, evidence of osseous demineralization, soft tissue swelling and ulceration consistent with cellulitis. -MRI Foot: Reported concern for osteomyelitis though clinician notes no enhancement on imaging; diagnostic certainty is questioned. Hemoglobin A1c in October 2024 was 5.4 (not suggestive of diabetes). The patient has good pulses in the legs. Chronicity of the wound may relate to offloading/pressure rather than vascular or glycemic etiology. Plan: \-- Continue vancomycin and ceftriaxone for ongoing treatment of presumed cellulitis/soft tissue infection \-- Consider surgical consultation for possible debridement of dorsal foot ulcer and/or wound vacuum (wound Vac) therapy for enhanced closure \-- If debridement is performed, collect aerobic and anaerobic cultures from the wound \-- Consider holding off on venous Doppler ultrasound unless further clinical concern for venous insufficiency or if clinical course worsens \-- Recommend strict offloading of the affected foot after discharge to promote wound healing \-- Monitor laboratory parameters, especially creatinine (noted elevation) \-- Hemoglobin A1c not suggestive of diabetes; microvascular changes less likely contributor \-- Continue wound care; monitor for signs of progression or systemic infection Isolation Precautions: Standard Assessment and plan was discussed with the patient as written above Plan is subject to change pending incorporation of new information/diagnostics. Updates may be added as addendum at the bottom (OR TOP) of this note Thank you for consult. ID will continue to follow. Please contact Infectious Disease with any questions or concerns. Arturo Merchant M.D. [facility] Ph: ? Teams text: [email or web address] Electronically signed by: Arturo Merchant MD, 02/08/2025 \ History: The patient's chart and medications were reviewed in detail and the patient was seen and examined. History obtained from: patient Ms. Jelly Negro is a 69 y.o. female with a history of hypertension and alcohol abuse, presenting with a chronic, non-healing wound on the dorsal left foot. The wound has been present since October and has recently become red, swollen, and increasingly tender, progressing such that she is now unable to ambulate on the affected foot. She has had ongoing wound care and oral antibiotics, but there has been no significant improvement. Review of Systems: A complete 10-system review of systems was completed and negative except as noted in the HPI or here. ROS: -CONSTITUTIONAL: Denies weight loss, fever, and chills. -HEENT: Denies changes in vision and hearing. -RESPIRATORY: Denies shortness of breath and cough. -CV: Denies palpitations and chest pain. -GI: Denies abdominal pain, nausea, vomiting, and diarrhea. -: Denies dysuria and urinary frequency. -MSK: Denies myalgia and joint pain. -SKIN: Denies rash and pruritus except as described in HPI. -NEUROLOGICAL: Denies headache and syncope. -PSYCHIATRIC: Denies recent changes in mood, anxiety, or depression. Past Medical History: Hypertension Alcohol abuse Past Surgical History: History reviewed. Reported hysterectomy. Home Medications: Not specified in transcript. Allergies: No known drug allergies. Family History: Not provided in transcript. Social History: -Tobacco: Vapes; otherwise, no information regarding cigarette smoking provided. -Alcohol use: Drinks 2-3 beers daily. -Drug use: Not provided. -Sexual activity: Not provided. -Other: Not provided. Objective: Vital Signs on Arrival: Temp: 97.3 F BP: 149/89 Pulse: 66 Resp: 18 SpO2: 97% on room air Most Recent Vital Signs: Not provided in transcript. Admission Weight: Not provided in transcript. Physical Exam: General: NAD Neck: Supple. No masses. HEENT: PERRL. Normal lids and conjunctiva. Moist mucous membranes. Oropharynx without lesions, exudates or excessive erythema. Normal appearance of the external aspects of the nose and ears. Heart: Regular rhythm, normal rate. No murmur. No lower extremity edema. Lungs: Normal respiratory effort. Clear to auscultation bilaterally. No wheezes. No crackles. Abdomen: Soft. Non-tender. Non-distended. No masses or abdominal hernia. Msk: No digital cyanosis. Normal strength and tone in all 4 limbs Skin: Warm and dry, no rashes. Edema and open ulcer with purulent drainage on dorsal left foot. Neuro: Alert. No facial droop or slurred speech. Extra-ocular movements intact. Sensation intact to soft touch in all 4 limbs. Psych: Appropriate mood. Full affect. Oriented to person, place, time, and situation. Lines: Not provided in transcript. Diagnostic Studies: Available diagnostic studies were reviewed personally. Significant relevant results and findings are outlined below or addressed in the Assessment and Plan above. Pertinent Imaging: -XR Chest: Unremarkable. -XR Left Foot: No acute fracture, no cortical destruction, osseous demineralization. -CT Foot: Soft tissue swelling and ulceration of the dorsal foot may reflect cellulitis. -MRI Foot: Reported evidence of osteomyelitis, though interpretation is uncertain due to lack of enhancement. Pertinent Labs: -WBC: 6.9 -Hemoglobin: 11.9 -Platelets: 427 -Lactic acid: 0.8 -Creatinine: 6.8 -Sodium: 137 -BUN: 6 -Urine: 3+ leukocyte esterase, pyuria -Cultures: E. coli (mello-sensitive); wound culture diphtheroids Electronically signed by: Arturo Merchant MD, 02/08/2025 Plan discussed with: Patient ARTURO MERCHANT MD Feb 09, 2025 18:36
[2025-02-09] MEDS: VANCOMYCIN 750mg/150ml 150 ML IV SCH (20:03)
[2025-02-10] VITALS (7 sets, daily range): BP systolic 109–148; BP diastolic 54–110; PULSE 58–100; RESP 17–18; TEMP 96.6–97.9; O2SAT 97–100
[2025-02-10] MEDS ORDERED: METR-344 PO (13:53)
[2025-02-10] MEDS: metroNIDAZOLE 500 MG TAB PO SCH (14:26)
[2025-02-10 14:29] LABS: Hematocrit 32.8 % (36.0-46.0); Hemoglobin 11.3 g/dL (12.2-16.2); Mean Corpuscular Hemoglobin 32.3 pg (28.0-32.0); Mean Corpuscular Volume 93.6 fL (80.0-100.0); Nucleated Red Blood Cells % 0.1 %
[2025-02-10 14:47] LABS: INR 1.04 (0.9-1.15); Partial Thromboplastin Time 30.0 SEC (24.5-34.5); Prothrombin Time 11.0 sec (9.3-11.8)
[2025-02-10] MEDS: LIDOCAINE 1% (LOCAL ANESTH.) PF 5ml SDV ID ONE (16:48)
--- NOTE | 2025-02-10 17:08 | DVHPN2 ---
Subjective THIS IS A FOLLOW UP ON 69-YEAR-OLD FEMALE WITH A KNOWN HISTORY OF CHRONIC LEFT FOOT WOUND FOUND TO HAVE OSTEOMYELITIS OF THE LEFT FOOT. Changes from previous H/P or p: No Changes Eyes: No Pain, No Vision change, No Conjunctivae inflammation, No Eyelid inflammation, No Other, No Redness ENT: No Ear pain, No Ear discharge, No Nose pain, No Nose discharge, No Nose congestion, No Mouth pain, No Mouth swelling, No Throat pain, No Throat swelling, No Other Cardiovascular: No Chest Pain, No Palpitations, No Orthopnea, No Paroxysmal Noc. Dyspnea, No Edema, No Lt Headedness, No Other Respiratory: No Cough, No Dry, No Shortness of breath, No SOB with excertion, No Wheezing, No Hemoptysis, No Pleuritic Pain, No Sputum, No Other Gastrointestinal: No Nausea, No Vomiting, No Abdominal Pain, No Diarrhea, No Constipation, No Melena, No Hematochezia, No Other Genitourinary: No Dysuria, No Frequency, No Incontinence, No Hematuria, No Retention, No Other Musculoskeletal: No other, No neck pain, No shoulder pain, No arm pain, No back pain, No hand pain, No leg pain; foot pain (left) Skin: No Rash; Lesions (left foot); No Jaundice, No Bruising, No Other Objective Vitals Vital Signs Date Time Temp Pulse Resp B/P (MAP) Pulse Ox O2 Delivery O2 Flow Rate FiO2 02/10/25 16:34 70 17 139/68 02/10/25 13:00 97.2 98 97.2 02/10/25 08:00 Room Air* 0 21 Intake/Output Intake and Output 02/10/25 07:00 Intake Total 2150 ml Output Total 1200 ml Balance 950 ml Intake Oral 1600 ml IV Total 550 ml Output Urine Total 1200 ml Exam HEENT PUPILS ARE REACTIVE NECK IS SUPPLE CV IS S1-S2 REGULAR RATE AND RHYTHM RESPIRATORY DIMINISHED BREATH SOUNDS BASES GI POSITIVE BOWEL SOUND EXTREMITY 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 Medications Current Medications Medications Dose Ordered Sig/Tony Route Start Time Stop Time Status Last Admin Dose Admin Vancomycin HCl 0 ml @ 0 mls/hr UD IV 02/06/25 12:15 Cefepime HCl 50 ml @ 12.5 mls/hr Q8HR IV 02/06/25 14:00 UNV Acetaminophen/ Hydrocodone Bitart 1 tab Q4HP PRN PO 02/06/25 12:15 02/08/25 16:28 1 TAB Ondansetron HCl 4 mg Q4HP PRN IV 02/06/25 12:15 02/08/25 17:43 4 MG Docusate Sodium 100 mg BIDPRN PRN PO 02/06/25 12:15 Acetaminophen 650 mg Q6HP PRN PO 02/06/25 12:15 Morphine Sulfate 2 mg Q4HPRN PRN IV 02/06/25 12:15 02/10/25 16:34 2 MG Metoprolol Tartrate 25 mg BID PO 02/06/25 22:00 02/10/25 09:27 25 MG Multivitamins 1 tab DAILY PO 02/07/25 10:00 02/10/25 09:28 1 TAB Thiamine HCl 100 mg DAILY PO 02/07/25 10:00 02/10/25 09:28 100 MG Folic Acid 1 mg DAILY PO 02/07/25 10:00 02/10/25 09:27 1 MG Lorazepam 1 mg Q2HP PRN IV 02/06/25 12:15 Hydralazine HCl 10 mg Q4HP PRN IV 02/08/25 09:15 02/08/25 17:18 10 MG Vancomycin HCl 100 ml @ 200 mls/hr Q12H IV 02/10/25 20:00 Ceftriaxone Sodium/Dextrose 50 ml @ 50 mls/hr DAILY IV 02/11/25 10:00 Metronidazole 500 mg Q8HR PO 02/10/25 14:00 02/10/25 14:26 500 MG Sodium Chloride 10 ml QSHIFT@10,22 IV 02/10/25 22:00 Laboratory Results Laboratory Tests 02/07/25 06:43 02/10/25 07:40 02/10/25 13:56 Coagulation Test 02/10/25 13:56 Prothrombin Time 11.0 sec (9.3-11.8) Prothrombin Time INR 1.04 (0.9-1.15) Activated Partial Thromboplast Time 30.0 SEC (24.5-34.5) Urinalysis Test 02/06/25 07:40 Urine Color Light-yellow (Yellow) Urine Clarity Cloudy (Clear) H Urine pH 6.0 (5.0-9.0) Urine Specific [address] 1.007 (1.001-1.035) Urine Protein 1+ (Negative) H Urine Ketones Negative (Negative) Urine Blood 2+ /uL (Negative) H Urine Nitrite Negative (Negative) Urine Bilirubin Negative (Negative) Urine Urobilinogen Normal mg/dL (Negative) Urine Leukocyte Esterase 3+ /uL (Negative) Urine RBC 48 /hpf (0 - 4) Urine WBC Clumps Present /hpf (None Seen) Urine Microscopic WBC 1624 /HPF (0-5) H Urine Squamous Epithelial Cells None seen /hpf (<5) Urine Bacteria Few /hpf (None Seen) H Urine Glucose Normal mg/dL (Normal) Microbiology Microbiology Date/Time Source Procedure Growth Status 02/07/25 11:42 Foot Left Gram Stain - Final Resulted 02/07/25 11:42 Foot Left Wound Culture - Preliminary Resulted 02/06/25 07:40 Voided Urine Urine Culture - Final Escherichia coli Complete 02/06/25 06:38 Blood Blood Culture - Preliminary NO GROWTH AFTER 72 HOURS OF INCUBATION. Resulted Assessment/Plan Assessment/Plan 69-YEAR-OLD FEMALE WITH A KNOWN HISTORY OF HYPERTENSION INITIALLY PRESENTED TO HOSPITAL WITH A LEFT FOOT WOUND FOUND TO HAVE 1. LEFT FOOT WOUND WITH A CELLULITIS 2. LEFT FOOT OSTEOMYELITIS 3. HYPERTENSION 4. UTI 5. Vaginal discharge -gynecology consultation. -IV ANTIBIOTICS, PODIATRY CONSULTATION, INFECTIOUS DISEASE CONSULTATION. WOUND CARE Plan discussed with: Patient My Orders Orders - MAHIN ARNOLD MD Procedure Category Date Status Time * Infectious [place]- CONS 02/10/25 Transmitted [facility] 10:13 Nursing Protocol Picc JONATHAN 02/10/25 In Process 16:38 Change Dressing Prn JONATHAN 02/10/25 In Process 16:38 Sodium Chloride Lock PHA 02/10/25 In Process (Saline Lock Ns) 22:00 Do Not Use Picc For 02/10/25 In Process Blood Cult 16:38 May Draw Blood From [facility] 02/10/25 In Process Picc 16:38 Ok To Use Picc JONATHAN 02/10/25 In Process 16:38 Change Picc Dressing [facility] 02/10/25 In Process Q7 Days 16:38 Date of Service: Feb 10, 2025 Billing Provider: MAHIN ARNOLD MD Common Visit Codes: [id number] INP/OBS CARE(MOD) MAHIN ARNOLD MD Feb 10, 2025 17:08
--- NOTE | 2025-02-10 19:33 | DVH ---
LEFT LOWER EXTREMITY ARTERIAL DUPLEX ULTRASOUND STUDY: REASON FOR EXAM: chronic leg ulcer , smoking hx, evaluate for stenosis TECHNIQUE: The full lengths of the arterial segments were evaluated with color-flow Doppler ultrasoun d. Suspected abnormalities were evaluated with boudreaux scale ultrasound. Sign Language Teacher spectral Doppler waveforms, with velocity measurements were obtained. Spectral waveforms with velocity measurements w ere obtained 2 to 4 cm central to any areas of significant stenosis. Common femoral, superficial femo ral, popliteal, posterior tibial, anterior tibial, and dorsal pedal arteries were evaluated. FINDINGS: There is mild atherosclerotic plaque in the left lower extremity. The common femoral artery waveform is monophasic with a sluggish upstroke. The superficial femoral and popliteal arteries are patent wi th monophasic waveforms. The posterior and anterior tibial arteries are patent with monophasic wavefo angela. The dorsal pedal artery was not evaluated due to overlying bandages. IMPRESSION: No hemodynamically significant stenosis. Atherosclerosis appears mild. The dorsal pedal artery was not evaluated due to overlying bandages.
[2025-02-10] MEDS: VANCOMYCIN 500mg/100mL 100 ML IV SCH (20:21)
[2025-02-10] MEDS: cefTRIAXone 2GM/50ML D5W 50 ML IV ONE (20:53)
[2025-02-10] MEDS: SODIUM CHLOR 0.9% PF (SALINE LOCK) 10ML VIAL/SYR IV SCH (21:21)
[2025-02-11] VITALS (8 sets, daily range): BP systolic 133–157; BP diastolic 67–79; PULSE 62–86; RESP 15–20; TEMP 97.4–98.6; O2SAT 94–100
[2025-02-11 09:42] LABS: Hematocrit 34.9 % (36.0-46.0); Hemoglobin 12.0 g/dL (12.2-16.2); Mean Corpuscular Hemoglobin 32.2 pg (28.0-32.0); Mean Corpuscular Volume 93.8 fL (80.0-100.0); Nucleated Red Blood Cells % 0.1 %
[2025-02-11] MEDS: cefTRIAXone 2GM/50ML D5W 50 ML IV SCH (09:51)
--- NOTE | 2025-02-11 15:58 | DVHPN2 ---
Consult Progress Note Date Seen: Feb 09, 2025 Subjective Patient reports: Other (was seen by podiatry who recommned holding off on any surigcal interventions , low suspicion for osteomyelitis on MRI . ) Objective vital signs Vital Sign Date Time Temp Pulse Resp B/P (MAP) Pulse Ox O2 Delivery O2 Flow Rate FiO2 02/11/25 13:00 98.6 63 15 147/78 (101) 100 98.6 02/11/25 08:00 Room Air* 0 21 Total Intake and Output 02/10/25 02/10/25 02/11/25 15:00 23:00 07:00 Intake Total 1350 ml 650 ml Balance 1350 ml 650 ml medications Current Medications Medications Dose Ordered Sig/Tony Route Start Time Stop Time Status Last Admin Dose Admin Vancomycin HCl 0 ml @ 0 mls/hr UD IV 02/06/25 12:15 Cefepime HCl 50 ml @ 12.5 mls/hr Q8HR IV 02/06/25 14:00 UNV Acetaminophen/ Hydrocodone Bitart 1 tab Q4HP PRN PO 02/06/25 12:15 02/08/25 16:28 1 TAB Ondansetron HCl 4 mg Q4HP PRN IV 02/06/25 12:15 02/08/25 17:43 4 MG Docusate Sodium 100 mg BIDPRN PRN PO 02/06/25 12:15 Acetaminophen 650 mg Q6HP PRN PO 02/06/25 12:15 Morphine Sulfate 2 mg Q4HPRN PRN IV 02/06/25 12:15 02/11/25 11:57 2 MG Metoprolol Tartrate 25 mg BID PO 02/06/25 22:00 02/11/25 09:50 25 MG Multivitamins 1 tab DAILY PO 02/07/25 10:00 02/11/25 09:48 1 TAB Thiamine HCl 100 mg DAILY PO 02/07/25 10:00 02/11/25 09:48 100 MG Folic Acid 1 mg DAILY PO 02/07/25 10:00 02/11/25 09:48 1 MG Lorazepam 1 mg Q2HP PRN IV 02/06/25 12:15 Hydralazine HCl 10 mg Q4HP PRN IV 02/08/25 09:15 02/08/25 17:18 10 MG Vancomycin HCl 100 ml @ 200 mls/hr Q12H IV 02/10/25 20:00 02/11/25 08:18 200 MLS/HR Ceftriaxone Sodium/Dextrose 50 ml @ 50 mls/hr DAILY IV 02/11/25 10:00 02/11/25 09:51 50 MLS/HR Metronidazole 500 mg Q8HR PO 02/10/25 14:00 02/11/25 15:14 500 MG Sodium Chloride 10 ml QSHIFT@10,22 IV 02/10/25 22:00 02/11/25 10:00 10 ML Physical Exam: General: NAD Neck: Supple. No masses. HEENT: PERRL. Normal lids and conjunctiva. Moist mucous membranes. Oropharynx without lesions, exudates or excessive erythema. Normal appearance of the external aspects of the nose and ears. Heart: Regular rhythm, normal rate. No murmur. No lower extremity edema. Lungs: Normal respiratory effort. Clear to auscultation bilaterally. No wheezes. No crackles. Abdomen: Soft. Non-tender. Non-distended. No masses or abdominal hernia. Msk: No digital cyanosis. Normal strength and tone in all 4 limbs Skin: Warm and dry, no rashes. Edema and open ulcer with purulent drainage on dorsal left foot. Neuro: Alert. No facial droop or slurred speech. Extra-ocular movements intact. Sensation intact to soft touch in all 4 limbs. Psych: Appropriate mood. Full affect. Oriented to person, place, time, and situation. laboratory and microbiology Laboratory Tests 02/11/25 09:03 02/07/25 06:43 Test 02/07/25 06:43 Range/Units Serum Glucose 98 74-106 mg/dL Problem List/Assessment/Plan Problems(with codes): (1) Nonhealing skin ulcer (2) Unspecified open wound, left foot, subsequent encounter (3) Cellulitis of left foot (4) Complicated UTI (urinary tract infection) Problem List/Assessment/Plan ASSESSMENT AND PLAN: ID Problem List: \-- Left dorsal foot ulcer, chronic \-- Suspected cellulitis \-- Possible osteomyelitis (MRI interpretation uncertain) \-- Edema of left lower extremity \-- Hypertension \-- Alcohol abuse Assessment This is a 69 y.o. female with a history of hypertension and alcohol abuse who presents with a chronic, persistent ulcer of the dorsal aspect of the left foot since October. The wound has been progressively worsening, becoming erythematous, swollen, tender, and is now limiting ambulation. She has received ongoing wound care and oral antibiotics; however, symptoms persist. On exam, she has left leg edema and an open ulcer with purulent drainage. Laboratory findings include pyuria and leukocyte esterase in urine, but otherwise unremarkable labs (WBC 6.9, Hgb 11.9, platelets 427). Lactic acid 0.8. Creatinine 6.8. Cultures have grown mello-sensitive E. coli and wound cultures show diphtheroids. Imaging: -Chest X-ray: Unremarkable. -X-ray, CT of left foot: No acute fracture, evidence of osseous demineralization, soft tissue swelling and ulceration consistent with cellulitis. -MRI Foot: Reported concern for osteomyelitis though clinician notes no enhancement on imaging; diagnostic certainty is questioned. Hemoglobin A1c in October 2024 was 5.4 (not suggestive of diabetes). The patient has good pulses in the legs. Chronicity of the wound may relate to offloading/pressure rather than vascular or glycemic etiology. 02/09: Agree with Dr. Little's wound care recommendations . patient needs offloading of the foot and care at home Plan: - agree with Dr. Reyez wound care recommendations \-- Continue vancomycin and ceftriaxone for 4 weeks given lack of convincing findings on MRI for osteomyelitis infection \-- Consider surgical consultation for possible debridement of dorsal foot ulcer and/or wound vacuum (wound Vac) therapy for enhanced closure \-- If debridement is performed, collect aerobic and anaerobic cultures from the wound \-- Consider holding off on venous Doppler ultrasound unless further clinical concern for venous insufficiency or if clinical course worsens \-- Recommend strict offloading of the affected foot after discharge to promote wound healing \-- Monitor laboratory parameters, especially creatinine (noted elevation) \-- Hemoglobin A1c not suggestive of diabetes; microvascular changes less likely contributor \-- Continue wound care; monitor for signs of progression or systemic infection Isolation Precautions: Standard Plan discussed with: Other Dietary Evaluation Review Comments: 1) Jigar 1 pk BID 2) Monitor wound status, I/O, PO intake, lab value Expected Outcomes/Goals: To meet >75% estimated needs Wound to improve Fu 3-5 days ARTURO DELCID MD Feb 11, 2025 15:58
--- NOTE | 2025-02-11 16:02 | DVHPN2 ---
Consult Progress Note Date Seen: Feb 10, 2025 Subjective Patient reports: Other (tolerating piccline placement and getting antibiotics . patient is agreeable to go home with home health ) Objective vital signs Vital Sign Date Time Temp Pulse Resp B/P (MAP) Pulse Ox O2 Delivery O2 Flow Rate FiO2 02/11/25 13:00 98.6 63 15 147/78 (101) 100 98.6 02/11/25 08:00 Room Air* 0 21 Total Intake and Output 02/10/25 02/10/25 02/11/25 15:00 23:00 07:00 Intake Total 1350 ml 650 ml Balance 1350 ml 650 ml medications Current Medications Medications Dose Ordered Sig/Tony Route Start Time Stop Time Status Last Admin Dose Admin Vancomycin HCl 0 ml @ 0 mls/hr UD IV 02/06/25 12:15 Cefepime HCl 50 ml @ 12.5 mls/hr Q8HR IV 02/06/25 14:00 UNV Acetaminophen/ Hydrocodone Bitart 1 tab Q4HP PRN PO 02/06/25 12:15 02/08/25 16:28 1 TAB Ondansetron HCl 4 mg Q4HP PRN IV 02/06/25 12:15 02/08/25 17:43 4 MG Docusate Sodium 100 mg BIDPRN PRN PO 02/06/25 12:15 Acetaminophen 650 mg Q6HP PRN PO 02/06/25 12:15 Morphine Sulfate 2 mg Q4HPRN PRN IV 02/06/25 12:15 02/11/25 11:57 2 MG Metoprolol Tartrate 25 mg BID PO 02/06/25 22:00 02/11/25 09:50 25 MG Multivitamins 1 tab DAILY PO 02/07/25 10:00 02/11/25 09:48 1 TAB Thiamine HCl 100 mg DAILY PO 02/07/25 10:00 02/11/25 09:48 100 MG Folic Acid 1 mg DAILY PO 02/07/25 10:00 02/11/25 09:48 1 MG Lorazepam 1 mg Q2HP PRN IV 02/06/25 12:15 Hydralazine HCl 10 mg Q4HP PRN IV 02/08/25 09:15 02/08/25 17:18 10 MG Vancomycin HCl 100 ml @ 200 mls/hr Q12H IV 02/10/25 20:00 02/11/25 08:18 200 MLS/HR Ceftriaxone Sodium/Dextrose 50 ml @ 50 mls/hr DAILY IV 02/11/25 10:00 02/11/25 09:51 50 MLS/HR Metronidazole 500 mg Q8HR PO 02/10/25 14:00 02/11/25 15:14 500 MG Sodium Chloride 10 ml QSHIFT@10,22 IV 02/10/25 22:00 02/11/25 10:00 10 ML Physical Exam: General: NAD Neck: Supple. No masses. HEENT: PERRL. Normal lids and conjunctiva. Moist mucous membranes. Oropharynx without lesions, exudates or excessive erythema. Normal appearance of the external aspects of the nose and ears. Heart: Regular rhythm, normal rate. No murmur. No lower extremity edema. Lungs: Normal respiratory effort. Clear to auscultation bilaterally. No wheezes. No crackles. Abdomen: Soft. Non-tender. Non-distended. No masses or abdominal hernia. Msk: No digital cyanosis. Normal strength and tone in all 4 limbs Skin: Warm and dry, no rashes. Edema and open ulcer with purulent drainage on dorsal left foot. Neuro: Alert. No facial droop or slurred speech. Extra-ocular movements intact. Sensation intact to soft touch in all 4 limbs. Psych: Appropriate mood. Full affect. Oriented to person, place, time, and situation. laboratory and microbiology Laboratory Tests 02/11/25 09:03 02/07/25 06:43 Test 02/07/25 06:43 Range/Units Serum Glucose 98 74-106 mg/dL Problem List/Assessment/Plan Problems(with codes): (1) Nonhealing skin ulcer (2) Unspecified open wound, left foot, subsequent encounter (3) Cellulitis of left foot (4) Complicated UTI (urinary tract infection) Problem List/Assessment/Plan ASSESSMENT AND PLAN: ID Problem List: \-- Left dorsal foot ulcer, chronic \-- Suspected cellulitis \-- Possible osteomyelitis (MRI interpretation uncertain) \-- Edema of left lower extremity \-- Hypertension \-- Alcohol abuse Assessment This is a 69 y.o. female with a history of hypertension and alcohol abuse who presents with a chronic, persistent ulcer of the dorsal aspect of the left foot since October. The wound has been progressively worsening, becoming erythematous, swollen, tender, and is now limiting ambulation. She has received ongoing wound care and oral antibiotics; however, symptoms persist. On exam, she has left leg edema and an open ulcer with purulent drainage. Laboratory findings include pyuria and leukocyte esterase in urine, but otherwise unremarkable labs (WBC 6.9, Hgb 11.9, platelets 427). Lactic acid 0.8. Creatinine 6.8. Cultures have grown mello-sensitive E. coli and wound cultures show diphtheroids. Imaging: -Chest X-ray: Unremarkable. -X-ray, CT of left foot: No acute fracture, evidence of osseous demineralization, soft tissue swelling and ulceration consistent with cellulitis. -MRI Foot: Reported concern for osteomyelitis though clinician notes no enhancement on imaging; diagnostic certainty is questioned. Hemoglobin A1c in October 2024 was 5.4 (not suggestive of diabetes). The patient has good pulses in the legs. Chronicity of the wound may relate to offloading/pressure rather than vascular or glycemic etiology. 02/09: Agree with Dr. Little's wound care recommendations . patient needs offloading of the foot and care at home 02/10: wound vac is now recommended by Dr. Little . wound has a large opening however drainage appears less and the boarders of the ulcer appears less cellulitic. wound cultures are unrevealing of any true infection , suspect their may be an underlying poor vascular flow causing decreasing sensation in foot and poor wound healing Plan: - recommend Doppler arterial ultrasound - agree with Dr. Reyez wound care recommendations \-- Continue vancomycin and ceftriaxone for 4 weeks given lack of convincing findings on MRI for osteomyelitis infection \-- Consider surgical consultation for possible debridement of dorsal foot ulcer and/or wound vacuum (wound Vac) therapy for enhanced closure \-- If debridement is performed, collect aerobic and anaerobic cultures from the wound \-- Consider holding off on venous Doppler ultrasound unless further clinical concern for venous insufficiency or if clinical course worsens \-- Recommend strict offloading of the affected foot after discharge to promote wound healing \-- Monitor laboratory parameters, especially creatinine (noted elevation) \-- Hemoglobin A1c not suggestive of diabetes; microvascular changes less likely contributor \-- Continue wound care; monitor for signs of progression or systemic infection Isolation Precautions: Standard Plan discussed with: Other Dietary Evaluation Review Comments: 1) Jigar 1 pk BID 2) Monitor wound status, I/O, PO intake, lab value Expected Outcomes/Goals: To meet >75% estimated needs Wound to improve Fu 3-5 days ARTURO DELCID MD Feb 11, 2025 16:02
--- NOTE | 2025-02-11 18:16 | DVHPN2 ---
Subjective THIS IS A FOLLOW UP ON 69-YEAR-OLD FEMALE WITH A KNOWN HISTORY OF CHRONIC LEFT FOOT WOUND FOUND TO HAVE OSTEOMYELITIS OF THE LEFT FOOT. Patient has got a PICC line, currently bear being for arrangement of IV antibiotics Changes from previous H/P or p: No Changes Eyes: No Pain, No Vision change, No Conjunctivae inflammation, No Eyelid inflammation, No Other, No Redness ENT: No Ear pain, No Ear discharge, No Nose pain, No Nose discharge, No Nose congestion, No Mouth pain, No Mouth swelling, No Throat pain, No Throat swelling, No Other Cardiovascular: No Chest Pain, No Palpitations, No Orthopnea, No Paroxysmal Noc. Dyspnea, No Edema, No Lt Headedness, No Other Respiratory: No Cough, No Dry, No Shortness of breath, No SOB with excertion, No Wheezing, No Hemoptysis, No Pleuritic Pain, No Sputum, No Other Gastrointestinal: No Nausea, No Vomiting, No Abdominal Pain, No Diarrhea, No Constipation, No Melena, No Hematochezia, No Other Genitourinary: No Dysuria, No Frequency, No Incontinence, No Hematuria, No Retention, No Other Musculoskeletal: No other, No neck pain, No shoulder pain, No arm pain, No back pain, No hand pain, No leg pain; foot pain (left) Skin: No Rash; Lesions (left foot); No Jaundice, No Bruising, No Other Objective Vitals Vital Signs Date Time Temp Pulse Resp B/P (MAP) Pulse Ox O2 Delivery O2 Flow Rate FiO2 02/11/25 17:16 98.2 72 16 151/71 (97) 100 98.2 02/11/25 08:00 Room Air* 0 21 Intake/Output Intake and Output 02/11/25 07:00 Intake Total 2000 ml Balance 2000 ml Intake Oral 1850 ml IV Total 150 ml # Voids 15 # Bowel Movements 1 Exam HEENT PUPILS ARE REACTIVE NECK IS SUPPLE CV IS S1-S2 REGULAR RATE AND RHYTHM RESPIRATORY DIMINISHED BREATH SOUNDS BASES GI POSITIVE BOWEL SOUND 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 Medications Current Medications Medications Dose Ordered Sig/Tony Route Start Time Stop Time Status Last Admin Dose Admin Vancomycin HCl 0 ml @ 0 mls/hr UD IV 02/06/25 12:15 Cefepime HCl 50 ml @ 12.5 mls/hr Q8HR IV 02/06/25 14:00 UNV Acetaminophen/ Hydrocodone Bitart 1 tab Q4HP PRN PO 02/06/25 12:15 02/11/25 17:34 1 TAB Ondansetron HCl 4 mg Q4HP PRN IV 02/06/25 12:15 02/08/25 17:43 4 MG Docusate Sodium 100 mg BIDPRN PRN PO 02/06/25 12:15 Acetaminophen 650 mg Q6HP PRN PO 02/06/25 12:15 Morphine Sulfate 2 mg Q4HPRN PRN IV 02/06/25 12:15 02/11/25 16:22 2 MG Metoprolol Tartrate 25 mg BID PO 02/06/25 22:00 02/11/25 09:50 25 MG Multivitamins 1 tab DAILY PO 02/07/25 10:00 02/11/25 09:48 1 TAB Thiamine HCl 100 mg DAILY PO 02/07/25 10:00 02/11/25 09:48 100 MG Folic Acid 1 mg DAILY PO 02/07/25 10:00 02/11/25 09:48 1 MG Lorazepam 1 mg Q2HP PRN IV 02/06/25 12:15 Hydralazine HCl 10 mg Q4HP PRN IV 02/08/25 09:15 02/08/25 17:18 10 MG Vancomycin HCl 100 ml @ 200 mls/hr Q12H IV 02/10/25 20:00 02/11/25 08:18 200 MLS/HR Ceftriaxone Sodium/Dextrose 50 ml @ 50 mls/hr DAILY IV 02/11/25 10:00 02/11/25 09:51 50 MLS/HR Metronidazole 500 mg Q8HR PO 02/10/25 14:00 02/11/25 15:14 500 MG Sodium Chloride 10 ml QSHIFT@10,22 IV 02/10/25 22:00 02/11/25 10:00 10 ML Laboratory Results Laboratory Tests 02/07/25 06:43 02/11/25 09:03 Urinalysis Test 02/06/25 07:40 Urine Color Light-yellow (Yellow) Urine Clarity Cloudy (Clear) H Urine pH 6.0 (5.0-9.0) Urine Specific [place] 1.007 (1.001-1.035) Urine Protein 1+ (Negative) H Urine Ketones Negative (Negative) Urine Blood 2+ /uL (Negative) H Urine Nitrite Negative (Negative) Urine Bilirubin Negative (Negative) Urine Urobilinogen Normal mg/dL (Negative) Urine Leukocyte Esterase 3+ /uL (Negative) Urine RBC 48 /hpf (0 - 4) Urine WBC Clumps Present /hpf (None Seen) Urine Microscopic WBC 1624 /HPF (0-5) H Urine Squamous Epithelial Cells None seen /hpf (<5) Urine Bacteria Few /hpf (None Seen) H Urine Glucose Normal mg/dL (Normal) Microbiology Microbiology Date/Time Source Procedure Growth Status 02/07/25 11:42 Foot Left Gram Stain - Final Complete 02/07/25 11:42 Foot Left Wound Culture - Final Complete 02/06/25 07:40 Voided Urine Urine Culture - Final Escherichia coli Complete 02/06/25 06:38 Blood Blood Culture - Final NO GROWTH AFTER 5 DAYS OF INCUBATION. Complete Assessment/Plan Assessment/Plan 69-YEAR-OLD FEMALE WITH A KNOWN HISTORY OF HYPERTENSION INITIALLY PRESENTED TO HOSPITAL WITH A LEFT FOOT WOUND FOUND TO HAVE 1. LEFT FOOT WOUND WITH A CELLULITIS 2. LEFT FOOT OSTEOMYELITIS 3. HYPERTENSION 4. UTI 5. Vaginal discharge -gynecology consultation. PICC line placement -IV ANTIBIOTICS, PODIATRY CONSULTATION, INFECTIOUS DISEASE CONSULTATION. WOUND CARE Plan discussed with: Patient Date of Service: Feb 11, 2025 Billing Provider: MAHIN ARNOLD MD Common Visit Codes: [id number] INP/OBS CARE(MOD) MAHIN ARNOLD MD Feb 11, 2025 18:16
--- NOTE | 2025-02-11 23:29 | DVHPN2 ---
Consult Progress Note Date Seen: Feb 11, 2025 Subjective Patient reports: Feels better (cellulitis with less pain and edema. doppler arterial US done) Review of Systems: HEENT:Normal Objective vital signs Vital Sign Date Time Temp Pulse Resp B/P (MAP) Pulse Ox O2 Delivery O2 Flow Rate FiO2 02/11/25 22:44 77 140/68 02/11/25 21:45 17 02/11/25 17:16 98.2 100 98.2 02/11/25 08:00 Room Air* 0 21 Total Intake and Output 02/10/25 02/10/25 02/11/25 15:00 23:00 07:00 Intake Total 1350 ml 650 ml Balance 1350 ml 650 ml medications Current Medications Medications Dose Ordered Sig/Tony Route Start Time Stop Time Status Last Admin Dose Admin Vancomycin HCl 0 ml @ 0 mls/hr UD IV 02/06/25 12:15 Cefepime HCl 50 ml @ 12.5 mls/hr Q8HR IV 02/06/25 14:00 UNV Acetaminophen/ Hydrocodone Bitart 1 tab Q4HP PRN PO 02/06/25 12:15 02/11/25 17:34 1 TAB Ondansetron HCl 4 mg Q4HP PRN IV 02/06/25 12:15 02/08/25 17:43 4 MG Docusate Sodium 100 mg BIDPRN PRN PO 02/06/25 12:15 Acetaminophen 650 mg Q6HP PRN PO 02/06/25 12:15 Morphine Sulfate 2 mg Q4HPRN PRN IV 02/06/25 12:15 02/11/25 21:15 2 MG Metoprolol Tartrate 25 mg BID PO 02/06/25 22:00 02/11/25 22:44 25 MG Multivitamins 1 tab DAILY PO 02/07/25 10:00 02/11/25 09:48 1 TAB Thiamine HCl 100 mg DAILY PO 02/07/25 10:00 02/11/25 09:48 100 MG Folic Acid 1 mg DAILY PO 02/07/25 10:00 02/11/25 09:48 1 MG Lorazepam 1 mg Q2HP PRN IV 02/06/25 12:15 Hydralazine HCl 10 mg Q4HP PRN IV 02/08/25 09:15 02/08/25 17:18 10 MG Vancomycin HCl 100 ml @ 200 mls/hr Q12H IV 02/10/25 20:00 02/11/25 20:40 200 MLS/HR Ceftriaxone Sodium/Dextrose 50 ml @ 50 mls/hr DAILY IV 02/11/25 10:00 02/11/25 09:51 50 MLS/HR Metronidazole 500 mg Q8HR PO 02/10/25 14:00 02/11/25 21:14 500 MG Sodium Chloride 10 ml QSHIFT@10,22 IV 02/10/25 22:00 02/11/25 21:14 10 ML Physical Exam: General: NAD Neck: Supple. No masses. HEENT: PERRL. Normal lids and conjunctiva. Moist mucous membranes. Oropharynx without lesions, exudates or excessive erythema. Normal appearance of the external aspects of the nose and ears. Heart: Regular rhythm, normal rate. No murmur. No lower extremity edema. Lungs: Normal respiratory effort. Clear to auscultation bilaterally. No wheezes. No crackles. Abdomen: Soft. Non-tender. Non-distended. No masses or abdominal hernia. Msk: No digital cyanosis. Normal strength and tone in all 4 limbs Skin: Warm and dry, no rashes. Edema and open ulcer with purulent drainage on dorsal left foot. Neuro: Alert. No facial droop or slurred speech. Extra-ocular movements intact. Sensation intact to soft touch in all 4 limbs. Psych: Appropriate mood. Full affect. Oriented to person, place, time, and situation. laboratory and microbiology Laboratory Tests 02/11/25 09:03 02/07/25 06:43 Test 02/07/25 06:43 Range/Units Serum Glucose 98 74-106 mg/dL Problem List/Assessment/Plan Problems(with codes): (1) Complicated UTI (urinary tract infection) (2) Cellulitis of left foot (3) Unspecified open wound, left foot, subsequent encounter (4) Nonhealing skin ulcer Problem List/Assessment/Plan ASSESSMENT AND PLAN: ID Problem List: \-- Left dorsal foot ulcer, chronic \-- Suspected cellulitis \-- Possible osteomyelitis (MRI interpretation uncertain) \-- Edema of left lower extremity \-- Hypertension \-- Alcohol abuse Assessment This is a 69 y.o. female with a history of hypertension and alcohol abuse who presents with a chronic, persistent ulcer of the dorsal aspect of the left foot since October. The wound has been progressively worsening, becoming erythematous, swollen, tender, and is now limiting ambulation. She has received ongoing wound care and oral antibiotics; however, symptoms persist. On exam, she has left leg edema and an open ulcer with purulent drainage. Laboratory findings include pyuria and leukocyte esterase in urine, but otherwise unremarkable labs (WBC 6.9, Hgb 11.9, platelets 427). Lactic acid 0.8. Creatinine 6.8. Cultures have grown mello-sensitive E. coli and wound cultures show diphtheroids. Imaging: -Chest X-ray: Unremarkable. -X-ray, CT of left foot: No acute fracture, evidence of osseous demineralization, soft tissue swelling and ulceration consistent with cellulitis. -MRI Foot: Reported concern for osteomyelitis though clinician notes no enhancement on imaging; diagnostic certainty is questioned. Hemoglobin A1c in October 2024 was 5.4 (not suggestive of diabetes). The patient has good pulses in the legs. Chronicity of the wound may relate to offloading/pressure rather than vascular or glycemic etiology. 02/09: Agree with Dr. Little's wound care recommendations . patient needs offloading of the foot and care at home 02/10: wound vac is now recommended by Dr. Little . wound has a large opening however drainage appears less and the boarders of the ulcer appears less cellulitic. wound cultures are unrevealing of any true infection , suspect their may be an underlying poor vascular flow causing decreasing sensation in foot and poor wound healing 02/11: arterial duplex: No hemodynamically significant stenosis. Atherosclerosis appears mild. The dorsal pedal artery was not evaluated due to overlying bandages. Plan: - agree with Dr. Reyez wound care recommendations \-- Continue vancomycin and ceftriaxone for 4 weeks given lack of convincing findings on MRI for osteomyelitis infection \-- Consider surgical consultation for possible debridement of dorsal foot ulcer and/or wound vacuum (wound Vac) therapy for enhanced closure \-- If debridement is performed, collect aerobic and anaerobic cultures from the wound \-- Consider holding off on venous Doppler ultrasound unless further clinical concern for venous insufficiency or if clinical course worsens \-- Recommend strict offloading of the affected foot after discharge to promote wound healing \-- Monitor laboratory parameters, especially creatinine (noted elevation) \-- Hemoglobin A1c not suggestive of diabetes; microvascular changes less likely contributor \-- Continue wound care; monitor for signs of progression or systemic infection Isolation Precautions: Standard Plan discussed with: Patient, Other Dietary Evaluation Review Comments: 1) Jigar 1 pk BID 2) Monitor wound status, I/O, PO intake, lab value Expected Outcomes/Goals: To meet >75% estimated needs Wound to improve Fu 3-5 days ARTURO DELCID MD Feb 11, 2025 23:29
[2025-02-12 05:00] VITALS: BP 131/67; PULSE 63; RESP 17; TEMP 97.8; O2SAT 97
[2025-02-12 07:44] LABS: Hematocrit 32.8 % (36.0-46.0); Hemoglobin 11.2 g/dL (12.2-16.2); Mean Corpuscular Hemoglobin 32.0 pg (28.0-32.0); Mean Corpuscular Volume 93.4 fL (80.0-100.0)
[2025-02-12 08:00] VITALS: PULSE 63; RESP 18; O2SAT 99
[2025-02-12 08:31] LABS: Total Cells Counted 100.0 (100)
[2025-02-12 09:00] VITALS: BP 159/78; PULSE 63; RESP 18; TEMP 97.9; O2SAT 100
[2025-02-12 13:00] VITALS: BP 140/76; PULSE 60; RESP 18; TEMP 97.6; O2SAT 100
--- NOTE | 2025-02-12 16:29 | DVHPN2 ---
Subjective 69-year-old female with a known history of chronic left foot wound here for osteomyelitis currently PICC line has been placed, IV antibiotics arrangement is pending per social media campaign manager. Changes from previous H/P or p: No Changes Eyes: No Pain, No Vision change, No Conjunctivae inflammation, No Eyelid inflammation, No Other, No Redness ENT: No Ear pain, No Ear discharge, No Nose pain, No Nose discharge, No Nose congestion, No Mouth pain, No Mouth swelling, No Throat pain, No Throat swelling, No Other Cardiovascular: No Chest Pain, No Palpitations, No Orthopnea, No Paroxysmal Noc. Dyspnea, No Edema, No Lt Headedness, No Other Respiratory: No Cough, No Dry, No Shortness of breath, No SOB with excertion, No Wheezing, No Hemoptysis, No Pleuritic Pain, No Sputum, No Other Gastrointestinal: No Nausea, No Vomiting, No Abdominal Pain, No Diarrhea, No Constipation, No Melena, No Hematochezia, No Other Genitourinary: No Dysuria, No Frequency, No Incontinence, No Hematuria, No Retention, No Other Musculoskeletal: No other, No neck pain, No shoulder pain, No arm pain, No back pain, No hand pain, No leg pain; foot pain (left) Skin: No Rash; Lesions (left foot); No Jaundice, No Bruising, No Other Objective Vitals Vital Signs Date Time Temp Pulse Resp B/P (MAP) Pulse Ox O2 Delivery O2 Flow Rate FiO2 02/12/25 11:30 62 16 147/85 02/12/25 09:00 97.9 100 97.9 02/12/25 08:00 Room Air* 0 21 Intake/Output Intake and Output 02/12/25 07:00 Intake Total 1450 ml Balance 1450 ml Intake Oral 1250 ml IV Total 200 ml # Voids 12 # Bowel Movements 1 Exam HEENT PUPILS ARE REACTIVE NECK IS SUPPLE CV IS S1-S2 REGULAR RATE AND RHYTHM RESPIRATORY DIMINISHED BREATH SOUNDS BASES GI POSITIVE BOWEL SOUND EXTREMITY NO EDEMA 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 Medications Current Medications Medications Dose Ordered Sig/Tony Route Start Time Stop Time Status Last Admin Dose Admin Vancomycin HCl 0 ml @ 0 mls/hr UD IV 02/06/25 12:15 Cefepime HCl 50 ml @ 12.5 mls/hr Q8HR IV 02/06/25 14:00 UNV Acetaminophen/ Hydrocodone Bitart 1 tab Q4HP PRN PO 02/06/25 12:15 02/12/25 15:45 1 TAB Ondansetron HCl 4 mg Q4HP PRN IV 02/06/25 12:15 02/08/25 17:43 4 MG Docusate Sodium 100 mg BIDPRN PRN PO 02/06/25 12:15 Acetaminophen 650 mg Q6HP PRN PO 02/06/25 12:15 Morphine Sulfate 2 mg Q4HPRN PRN IV 02/06/25 12:15 02/12/25 11:30 2 MG Metoprolol Tartrate 25 mg BID PO 02/06/25 22:00 02/12/25 08:50 25 MG Multivitamins 1 tab DAILY PO 02/07/25 10:00 02/12/25 08:44 1 TAB Thiamine HCl 100 mg DAILY PO 02/07/25 10:00 02/12/25 08:44 100 MG Folic Acid 1 mg DAILY PO 02/07/25 10:00 02/12/25 08:44 1 MG Lorazepam 1 mg Q2HP PRN IV 02/06/25 12:15 Hydralazine HCl 10 mg Q4HP PRN IV 02/08/25 09:15 02/08/25 17:18 10 MG Vancomycin HCl 100 ml @ 200 mls/hr Q12H IV 02/10/25 20:00 02/12/25 08:42 200 MLS/HR Ceftriaxone Sodium/Dextrose 50 ml @ 50 mls/hr DAILY IV 02/11/25 10:00 02/12/25 08:45 50 MLS/HR Metronidazole 500 mg Q8HR PO 02/10/25 14:00 02/12/25 06:05 500 MG Sodium Chloride 10 ml QSHIFT@10,22 IV 02/10/25 22:00 02/12/25 08:44 10 ML Laboratory Results Laboratory Tests 02/07/25 06:43 02/12/25 07:00 Urinalysis Test 02/06/25 07:40 Urine Color Light-yellow (Yellow) Urine Clarity Cloudy (Clear) H Urine pH 6.0 (5.0-9.0) Urine Specific [place] 1.007 (1.001-1.035) Urine Protein 1+ (Negative) H Urine Ketones Negative (Negative) Urine Blood 2+ /uL (Negative) H Urine Nitrite Negative (Negative) Urine Bilirubin Negative (Negative) Urine Urobilinogen Normal mg/dL (Negative) Urine Leukocyte Esterase 3+ /uL (Negative) Urine RBC 48 /hpf (0 - 4) Urine WBC Clumps Present /hpf (None Seen) Urine Microscopic WBC 1624 /HPF (0-5) H Urine Squamous Epithelial Cells None seen /hpf (<5) Urine Bacteria Few /hpf (None Seen) H Urine Glucose Normal mg/dL (Normal) Microbiology Microbiology Date/Time Source Procedure Growth Status 02/07/25 11:42 Foot Left Gram Stain - Final Complete 02/07/25 11:42 Foot Left Wound Culture - Final Complete 02/06/25 07:40 Voided Urine Urine Culture - Final Escherichia coli Complete 02/06/25 06:38 Blood Blood Culture - Final NO GROWTH AFTER 5 DAYS OF INCUBATION. Complete Assessment/Plan Assessment/Plan 69-YEAR-OLD FEMALE WITH A KNOWN HISTORY OF HYPERTENSION INITIALLY PRESENTED TO HOSPITAL WITH A LEFT FOOT WOUND FOUND TO HAVE 1. LEFT FOOT WOUND WITH A CELLULITIS 2. LEFT FOOT OSTEOMYELITIS 3. HYPERTENSION 4. UTI 5. Vaginal discharge -gynecology consultation. -arrange IV ANTIBIOTICS for six weeks, PODIATRY CONSULTATION, INFECTIOUS DISEASE CONSULTATION. WOUND CARE Plan discussed with: Other My Orders Orders - MAHIN ARNOLD MD Procedure Category Date Status Time * Lead Systems Developer Consultation CONS 02/11/25 Transmitted 18:16 Date of Service: Feb 12, 2025 Billing Provider: MAHIN ARNOLD MD Common Visit Codes: [id number] INP/OBS CARE(MOD) MAHIN ARNOLD MD Feb 12, 2025 16:29
[2025-02-12 17:00] VITALS: BP 158/71; PULSE 74; RESP 18; TEMP 98.3; O2SAT 99
[2025-02-12 21:00] VITALS: BP 118/66; PULSE 75; RESP 18; TEMP 98.1; O2SAT 95
[2025-02-12] MEDS: NICOTINE 14 MG/24HR TOPICAL PATCH TD SCH (21:15)
[2025-02-13] VITALS (8 sets, daily range): BP systolic 122–165; BP diastolic 59–94; PULSE 65–74; RESP 18; TEMP 97.4–98.1; O2SAT 97–100
[2025-02-13] MEDS: VANCOMYCIN 500mg/100mL 100 ML IV SCH (11:00)
--- NOTE | 2025-02-13 16:45 | DVHPN2 ---
Subjective 69-year-old female with a known history of chronic left foot wound here for osteomyelitis currently PICC line has been placed, IV antibiotics arrangement is pending per manager social services. Changes from previous H/P or p: No Changes Eyes: No Pain, No Vision change, No Conjunctivae inflammation, No Eyelid inflammation, No Other, No Redness ENT: No Ear pain, No Ear discharge, No Nose pain, No Nose discharge, No Nose congestion, No Mouth pain, No Mouth swelling, No Throat pain, No Throat swelling, No Other Cardiovascular: No Chest Pain, No Palpitations, No Orthopnea, No Paroxysmal Noc. Dyspnea, No Edema, No Lt Headedness, No Other Respiratory: No Cough, No Dry, No Shortness of breath, No SOB with excertion, No Wheezing, No Hemoptysis, No Pleuritic Pain, No Sputum, No Other Gastrointestinal: No Nausea, No Vomiting, No Abdominal Pain, No Diarrhea, No Constipation, No Melena, No Hematochezia, No Other Genitourinary: No Dysuria, No Frequency, No Incontinence, No Hematuria, No Retention, No Other Musculoskeletal: No other, No neck pain, No shoulder pain, No arm pain, No back pain, No hand pain, No leg pain; foot pain (left) Skin: No Rash; Lesions (left foot); No Jaundice, No Bruising, No Other Objective Vitals Vital Signs Date Time Temp Pulse Resp B/P (MAP) Pulse Ox O2 Delivery O2 Flow Rate FiO2 02/13/25 13:54 62 16 138/85 02/13/25 13:00 97.4 100 97.4 02/13/25 08:00 Room Air* 0 21 Intake/Output Intake and Output 02/13/25 07:00 Intake Total 850 ml Balance 850 ml Intake Oral 850 ml # Voids 13 Exam HEENT PUPILS ARE REACTIVE NECK IS SUPPLE CV IS S1-S2 REGULAR RATE AND RHYTHM RESPIRATORY DIMINISHED BREATH SOUNDS BASES GI POSITIVE BOWEL SOUND EXTREMITY NO EDEMA 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 Medications Current Medications Medications Dose Ordered Sig/Tony Route Start Time Stop Time Status Last Admin Dose Admin Vancomycin HCl 0 ml @ 0 mls/hr UD IV 02/06/25 12:15 Cefepime HCl 50 ml @ 12.5 mls/hr Q8HR IV 02/06/25 14:00 UNV Acetaminophen/ Hydrocodone Bitart 1 tab Q4HP PRN PO 02/06/25 12:15 02/13/25 05:41 1 TAB Ondansetron HCl 4 mg Q4HP PRN IV 02/06/25 12:15 02/08/25 17:43 4 MG Docusate Sodium 100 mg BIDPRN PRN PO 02/06/25 12:15 Acetaminophen 650 mg Q6HP PRN PO 02/06/25 12:15 Morphine Sulfate 2 mg Q4HPRN PRN IV 02/06/25 12:15 02/13/25 13:24 2 MG Metoprolol Tartrate 25 mg BID PO 02/06/25 22:00 02/13/25 09:14 25 MG Multivitamins 1 tab DAILY PO 02/07/25 10:00 02/13/25 09:13 1 TAB Thiamine HCl 100 mg DAILY PO 02/07/25 10:00 02/13/25 09:13 100 MG Folic Acid 1 mg DAILY PO 02/07/25 10:00 02/13/25 09:13 1 MG Lorazepam 1 mg Q2HP PRN IV 02/06/25 12:15 Hydralazine HCl 10 mg Q4HP PRN IV 02/08/25 09:15 02/08/25 17:18 10 MG Ceftriaxone Sodium/Dextrose 50 ml @ 50 mls/hr DAILY IV 02/11/25 10:00 02/13/25 09:14 50 MLS/HR Metronidazole 500 mg Q8HR PO 02/10/25 14:00 02/13/25 05:40 500 MG Sodium Chloride 10 ml QSHIFT@10,22 IV 02/10/25 22:00 02/13/25 09:14 10 ML Nicotine 1 patch DAILY TD 02/12/25 21:00 02/13/25 09:12 1 PATCH Vancomycin HCl 100 ml @ 200 mls/hr Q12H IV 02/13/25 11:00 02/13/25 11:00 200 MLS/HR Laboratory Results Laboratory Tests 02/07/25 06:43 02/12/25 07:00 02/13/25 06:37 Urinalysis Test 02/06/25 07:40 Urine Color Light-yellow (Yellow) Urine Clarity Cloudy (Clear) H Urine pH 6.0 (5.0-9.0) Urine Specific [place] 1.007 (1.001-1.035) Urine Protein 1+ (Negative) H Urine Ketones Negative (Negative) Urine Blood 2+ /uL (Negative) H Urine Nitrite Negative (Negative) Urine Bilirubin Negative (Negative) Urine Urobilinogen Normal mg/dL (Negative) Urine Leukocyte Esterase 3+ /uL (Negative) Urine RBC 48 /hpf (0 - 4) Urine WBC Clumps Present /hpf (None Seen) Urine Microscopic WBC 1624 /HPF (0-5) H Urine Squamous Epithelial Cells None seen /hpf (<5) Urine Bacteria Few /hpf (None Seen) H Urine Glucose Normal mg/dL (Normal) Microbiology Microbiology Date/Time Source Procedure Growth Status 02/07/25 11:42 Foot Left Gram Stain - Final Complete 02/07/25 11:42 Foot Left Wound Culture - Final Complete 02/06/25 07:40 Voided Urine Urine Culture - Final Escherichia coli Complete 02/06/25 06:38 Blood Blood Culture - Final NO GROWTH AFTER 5 DAYS OF INCUBATION. Complete Assessment/Plan Assessment/Plan 69-YEAR-OLD FEMALE WITH A KNOWN HISTORY OF HYPERTENSION INITIALLY PRESENTED TO HOSPITAL WITH A LEFT FOOT WOUND FOUND TO HAVE 1. LEFT FOOT WOUND WITH CELLULITIS 2. LEFT FOOT OSTEOMYELITIS 3. HYPERTENSION 4. UTI 5. Vaginal discharge, resolved -arrange IV ANTIBIOTICS for six weeks, INFECTIOUS DISEASE CONSULTATION appreciated. Foot WOUND CARE Plan discussed with: Patient My Orders Orders - MAHIN ARNOLD MD Procedure Category Date Status Time Nicotine 14mg/24hr PHA 02/12/25 In Process (Nicoderm 14mg/24hr) 21:00 * Senior Abap Developer CONS 02/13/25 Transmitted Consult 14:36 Date of Service: Feb 13, 2025 Billing Provider: MAHIN ARNOLD MD Common Visit Codes: [id number] INP/OBS CARE(MOD) MAHIN ARNOLD MD Feb 13, 2025 16:45
[2025-02-14 00:53] VITALS: BP 104/51; PULSE 77; RESP 18; TEMP 98; O2SAT 96
[2025-02-14 05:00] VITALS: BP 153/80; PULSE 68; RESP 20; TEMP 98; O2SAT 98
[2025-02-14 08:00] VITALS: PULSE 64; RESP 18; O2SAT 97
[2025-02-14 09:00] VITALS: BP 142/79; PULSE 64; RESP 16; TEMP 98.6; O2SAT 97
--- NOTE | 2025-02-14 13:55 | DVHPN2 ---
Subjective Comfortable in bed. Denies any complaints. Changes from previous H/P or p: No Changes Musculoskeletal: foot pain (left) Skin: Lesions (left foot) Objective Vitals Vital Signs Date Time Temp Pulse Resp B/P (MAP) Pulse Ox O2 Delivery O2 Flow Rate FiO2 02/14/25 10:00 64 16 142/64 02/14/25 09:00 98.6 97 98.6 02/14/25 08:00 Room Air* 0 21 Intake/Output Intake and Output 02/14/25 07:00 Intake Total 1040 ml Output Total 980 ml Balance 60 ml Intake Oral 890 ml IV Total 150 ml Output Urine Total 980 ml # Voids 6 # Bowel Movements 2 Exam HEENT neck supple no JVD. Heart regular rate and rhythm S1-S2. Lungs fair air movement without rales wheezes. Abdomen soft nontender positive bowel sounds. Extremities no edema positive pulses. Medications Current Medications Medications Dose Ordered Sig/Tony Route Start Time Stop Time Status Last Admin Dose Admin Vancomycin HCl 0 ml @ 0 mls/hr UD IV 02/06/25 12:15 Cefepime HCl 50 ml @ 12.5 mls/hr Q8HR IV 02/06/25 14:00 UNV Acetaminophen/ Hydrocodone Bitart 1 tab Q4HP PRN PO 02/06/25 12:15 02/14/25 06:15 1 TAB Ondansetron HCl 4 mg Q4HP PRN IV 02/06/25 12:15 02/08/25 17:43 4 MG Docusate Sodium 100 mg BIDPRN PRN PO 02/06/25 12:15 Acetaminophen 650 mg Q6HP PRN PO 02/06/25 12:15 Morphine Sulfate 2 mg Q4HPRN PRN IV 02/06/25 12:15 02/14/25 10:00 2 MG Metoprolol Tartrate 25 mg BID PO 02/06/25 22:00 02/14/25 09:58 25 MG Multivitamins 1 tab DAILY PO 02/07/25 10:00 02/14/25 09:58 1 TAB Thiamine HCl 100 mg DAILY PO 02/07/25 10:00 02/14/25 09:58 100 MG Folic Acid 1 mg DAILY PO 02/07/25 10:00 02/14/25 09:58 1 MG Lorazepam 1 mg Q2HP PRN IV 02/06/25 12:15 Hydralazine HCl 10 mg Q4HP PRN IV 02/08/25 09:15 02/13/25 21:52 10 MG Ceftriaxone Sodium/Dextrose 50 ml @ 50 mls/hr DAILY IV 02/11/25 10:00 02/14/25 09:59 50 MLS/HR Metronidazole 500 mg Q8HR PO 02/10/25 14:00 02/14/25 06:13 500 MG Sodium Chloride 10 ml QSHIFT@10,22 IV 02/10/25 22:00 02/14/25 09:59 10 ML Nicotine 1 patch DAILY TD 02/12/25 21:00 02/14/25 09:59 1 PATCH Vancomycin HCl 100 ml @ 200 mls/hr Q12H IV 02/13/25 11:00 02/14/25 11:00 200 MLS/HR Laboratory Results Laboratory Tests 02/07/25 06:43 02/12/25 07:00 02/14/25 06:27 Urinalysis Test 02/06/25 07:40 Urine Color Light-yellow (Yellow) Urine Clarity Cloudy (Clear) H Urine pH 6.0 (5.0-9.0) Urine Specific [place] 1.007 (1.001-1.035) Urine Protein 1+ (Negative) H Urine Ketones Negative (Negative) Urine Blood 2+ /uL (Negative) H Urine Nitrite Negative (Negative) Urine Bilirubin Negative (Negative) Urine Urobilinogen Normal mg/dL (Negative) Urine Leukocyte Esterase 3+ /uL (Negative) Urine RBC 48 /hpf (0 - 4) Urine WBC Clumps Present /hpf (None Seen) Urine Microscopic WBC 1624 /HPF (0-5) H Urine Squamous Epithelial Cells None seen /hpf (<5) Urine Bacteria Few /hpf (None Seen) H Urine Glucose Normal mg/dL (Normal) Microbiology Microbiology Date/Time Source Procedure Growth Status 02/07/25 11:42 Foot Left Gram Stain - Final Complete 02/07/25 11:42 Foot Left Wound Culture - Final Complete 02/06/25 07:40 Voided Urine Urine Culture - Final Escherichia coli Complete 02/06/25 06:38 Blood Blood Culture - Final NO GROWTH AFTER 5 DAYS OF INCUBATION. Complete Assessment/Plan Assessment/Plan 1. LEFT FOOT WOUND WITH A CELLULITIS 2. LEFT FOOT OSTEOMYELITIS 3. HYPERTENSION 4. UTI 5. Vaginal discharge Patient is clinically stable. Encouraged out of bed ambulate as tolerated with a walker. Grinder Set Up Operator Jig are working to [facility] her where she can get her IV antibiotics. Till then continue current IV antibiotics in the hospital and rest of supportive care and treatment. Discussed regarding activity to minimize DVT PE given a prolonged hospitalization. Plan discussed with: Patient, Other My Orders Orders - RAND BOWENS MD Procedure Category Date Status Time Discharge DISCHARGE 02/14/25 Verified 13:51 Date of Service: Feb 14, 2025 Billing Provider: RAND BOWENS MD Common Visit Codes: [id number] INP/OBS CARE(MOD) RAND BOWENS MD Feb 14, 2025 13:55
--- NOTE | 2025-02-14 17:21 | DVHPN2 ---
Consult Progress Note Date Seen: Feb 13, 2025 Subjective Patient reports: Other (hypertensive , restlessness , denies any foot pain and edema appears to be improving in the leg and foot) Objective vital signs Vital Sign Date Time Temp Pulse Resp B/P (MAP) Pulse Ox O2 Delivery O2 Flow Rate FiO2 02/14/25 10:00 64 16 142/64 02/14/25 09:00 98.6 97 98.6 02/14/25 08:00 Room Air* 0 21 Total Intake and Output 02/13/25 02/13/25 02/14/25 15:00 23:00 07:00 Intake Total 50 ml 850 ml 140 ml Output Total 980 ml Balance 50 ml 850 ml -840 ml medications Current Medications Medications Dose Ordered Sig/Tony Route Start Time Stop Time Status Last Admin Dose Admin Vancomycin HCl 0 ml @ 0 mls/hr UD IV 02/06/25 12:15 Cefepime HCl 50 ml @ 12.5 mls/hr Q8HR IV 02/06/25 14:00 UNV Acetaminophen/ Hydrocodone Bitart 1 tab Q4HP PRN PO 02/06/25 12:15 02/14/25 14:27 1 TAB Ondansetron HCl 4 mg Q4HP PRN IV 02/06/25 12:15 02/08/25 17:43 4 MG Docusate Sodium 100 mg BIDPRN PRN PO 02/06/25 12:15 Acetaminophen 650 mg Q6HP PRN PO 02/06/25 12:15 Morphine Sulfate 2 mg Q4HPRN PRN IV 02/06/25 12:15 02/14/25 10:00 2 MG Metoprolol Tartrate 25 mg BID PO 02/06/25 22:00 02/14/25 09:58 25 MG Multivitamins 1 tab DAILY PO 02/07/25 10:00 02/14/25 09:58 1 TAB Thiamine HCl 100 mg DAILY PO 02/07/25 10:00 02/14/25 09:58 100 MG Folic Acid 1 mg DAILY PO 02/07/25 10:00 02/14/25 09:58 1 MG Lorazepam 1 mg Q2HP PRN IV 02/06/25 12:15 Hydralazine HCl 10 mg Q4HP PRN IV 02/08/25 09:15 02/13/25 21:52 10 MG Ceftriaxone Sodium/Dextrose 50 ml @ 50 mls/hr DAILY IV 02/11/25 10:00 02/14/25 09:59 50 MLS/HR Metronidazole 500 mg Q8HR PO 02/10/25 14:00 02/14/25 14:27 500 MG Sodium Chloride 10 ml QSHIFT@10,22 IV 02/10/25 22:00 02/14/25 09:59 10 ML Nicotine 1 patch DAILY TD 02/12/25 21:00 02/14/25 09:59 1 PATCH Vancomycin HCl 100 ml @ 200 mls/hr Q12H IV 02/13/25 11:00 02/14/25 11:00 200 MLS/HR Physical Exam: General: NAD Neck: Supple. No masses. HEENT: PERRL. Normal lids and conjunctiva. Moist mucous membranes. Oropharynx without lesions, exudates or excessive erythema. Normal appearance of the external aspects of the nose and ears. Heart: Regular rhythm, normal rate. No murmur. No lower extremity edema. Lungs: Normal respiratory effort. Clear to auscultation bilaterally. No wheezes. No crackles. Abdomen: Soft. Non-tender. Non-distended. No masses or abdominal hernia. Msk: No digital cyanosis. Normal strength and tone in all 4 limbs Skin: Warm and dry, no rashes. Edema and open ulcer with purulent drainage on dorsal left foot. Neuro: Alert. No facial droop or slurred speech. Extra-ocular movements intact. Sensation intact to soft touch in all 4 limbs. Psych: Appropriate mood. Full affect. Oriented to person, place, time, and situation. laboratory and microbiology Laboratory Tests 02/14/25 06:27 02/12/25 07:00 02/07/25 06:43 Test 02/07/25 06:43 Range/Units Serum Glucose 98 74-106 mg/dL Problem List/Assessment/Plan Problems(with codes): (1) Complicated UTI (urinary tract infection) (2) Cellulitis of left foot (3) Unspecified open wound, left foot, subsequent encounter (4) Nonhealing skin ulcer Problem List/Assessment/Plan ASSESSMENT AND PLAN: ID Problem List: \-- Left dorsal foot ulcer, chronic \-- Suspected cellulitis \-- Possible osteomyelitis (MRI interpretation uncertain) \-- Edema of left lower extremity \-- Hypertension \-- Alcohol abuse Assessment This is a 69 y.o. female with a history of hypertension and alcohol abuse who presents with a chronic, persistent ulcer of the dorsal aspect of the left foot since October. The wound has been progressively worsening, becoming erythematous, swollen, tender, and is now limiting ambulation. She has received ongoing wound care and oral antibiotics; however, symptoms persist. On exam, she has left leg edema and an open ulcer with purulent drainage. Laboratory findings include pyuria and leukocyte esterase in urine, but otherwise unremarkable labs (WBC 6.9, Hgb 11.9, platelets 427). Lactic acid 0.8. Creatinine 6.8. Cultures have grown mello-sensitive E. coli and wound cultures show diphtheroids. Imaging: -Chest X-ray: Unremarkable. -X-ray, CT of left foot: No acute fracture, evidence of osseous demineralization, soft tissue swelling and ulceration consistent with cellulitis. -MRI Foot: Reported concern for osteomyelitis though clinician notes no enhancement on imaging; diagnostic certainty is questioned. Hemoglobin A1c in October 2024 was 5.4 (not suggestive of diabetes). The patient has good pulses in the legs. Chronicity of the wound may relate to offloading/pressure rather than vascular or glycemic etiology. 02/09: Agree with Dr. Little's wound care recommendations . patient needs offloading of the foot and care at home 02/10: wound vac is now recommended by Dr. Little . wound has a large opening however drainage appears less and the boarders of the ulcer appears less cellulitic. wound cultures are unrevealing of any true infection , suspect their may be an underlying poor vascular flow causing decreasing sensation in foot and poor wound healing 02/11: arterial duplex: No hemodynamically significant stenosis. Atherosclerosis appears mild. The dorsal pedal artery was not evaluated due to overlying bandages. 02/12: agree with transfer to SNF 02/13: leg edema appears to be improving Plan: - agree with Dr. Reyez wound care recommendations \-- Continue vancomycin and ceftriaxone for 4 weeks given lack of convincing findings on MRI for osteomyelitis infection \-- Consider surgical consultation for possible debridement of dorsal foot ulcer and/or wound vacuum (wound Vac) therapy for enhanced closure \-- If debridement is performed, collect aerobic and anaerobic cultures from the wound \-- Consider holding off on venous Doppler ultrasound unless further clinical concern for venous insufficiency or if clinical course worsens \-- Recommend strict offloading of the affected foot after discharge to promote wound healing \-- Monitor laboratory parameters, especially creatinine (noted elevation) \-- Hemoglobin A1c not suggestive of diabetes; microvascular changes less likely contributor \-- Continue wound care; monitor for signs of progression or systemic infection Isolation Precautions: Standard Plan discussed with: Other Dietary Evaluation Review Comments: 1) Jigar 1 pk BID 2) Monitor wound status, I/O, PO intake, lab value Expected Outcomes/Goals: To meet >75% estimated needs Wound to improve Fu 3-5 days ARTURO DELCID MD Feb 14, 2025 17:21
--- NOTE | 2025-02-14 17:21 | DVHPN2 ---
Consult Progress Note Date Seen: Feb 12, 2025 Subjective Patient reports: Other (to go to SNF for wound care and IV antibiotics , currently not able to ambulate well and unable to change her own bandages ) Objective vital signs Vital Sign Date Time Temp Pulse Resp B/P (MAP) Pulse Ox O2 Delivery O2 Flow Rate FiO2 02/14/25 10:00 64 16 142/64 02/14/25 09:00 98.6 97 98.6 02/14/25 08:00 Room Air* 0 21 Total Intake and Output 02/13/25 02/13/25 02/14/25 15:00 23:00 07:00 Intake Total 50 ml 850 ml 140 ml Output Total 980 ml Balance 50 ml 850 ml -840 ml medications Current Medications Medications Dose Ordered Sig/Tony Route Start Time Stop Time Status Last Admin Dose Admin Vancomycin HCl 0 ml @ 0 mls/hr UD IV 02/06/25 12:15 Cefepime HCl 50 ml @ 12.5 mls/hr Q8HR IV 02/06/25 14:00 UNV Acetaminophen/ Hydrocodone Bitart 1 tab Q4HP PRN PO 02/06/25 12:15 02/14/25 14:27 1 TAB Ondansetron HCl 4 mg Q4HP PRN IV 02/06/25 12:15 02/08/25 17:43 4 MG Docusate Sodium 100 mg BIDPRN PRN PO 02/06/25 12:15 Acetaminophen 650 mg Q6HP PRN PO 02/06/25 12:15 Morphine Sulfate 2 mg Q4HPRN PRN IV 02/06/25 12:15 02/14/25 10:00 2 MG Metoprolol Tartrate 25 mg BID PO 02/06/25 22:00 02/14/25 09:58 25 MG Multivitamins 1 tab DAILY PO 02/07/25 10:00 02/14/25 09:58 1 TAB Thiamine HCl 100 mg DAILY PO 02/07/25 10:00 02/14/25 09:58 100 MG Folic Acid 1 mg DAILY PO 02/07/25 10:00 02/14/25 09:58 1 MG Lorazepam 1 mg Q2HP PRN IV 02/06/25 12:15 Hydralazine HCl 10 mg Q4HP PRN IV 02/08/25 09:15 02/13/25 21:52 10 MG Ceftriaxone Sodium/Dextrose 50 ml @ 50 mls/hr DAILY IV 02/11/25 10:00 02/14/25 09:59 50 MLS/HR Metronidazole 500 mg Q8HR PO 02/10/25 14:00 02/14/25 14:27 500 MG Sodium Chloride 10 ml QSHIFT@10,22 IV 02/10/25 22:00 02/14/25 09:59 10 ML Nicotine 1 patch DAILY TD 02/12/25 21:00 02/14/25 09:59 1 PATCH Vancomycin HCl 100 ml @ 200 mls/hr Q12H IV 02/13/25 11:00 02/14/25 11:00 200 MLS/HR Physical Exam: General: NAD Neck: Supple. No masses. HEENT: PERRL. Normal lids and conjunctiva. Moist mucous membranes. Oropharynx without lesions, exudates or excessive erythema. Normal appearance of the external aspects of the nose and ears. Heart: Regular rhythm, normal rate. No murmur. No lower extremity edema. Lungs: Normal respiratory effort. Clear to auscultation bilaterally. No wheezes. No crackles. Abdomen: Soft. Non-tender. Non-distended. No masses or abdominal hernia. Msk: No digital cyanosis. Normal strength and tone in all 4 limbs Skin: Warm and dry, no rashes. Edema and open ulcer with purulent drainage on dorsal left foot. Neuro: Alert. No facial droop or slurred speech. Extra-ocular movements intact. Sensation intact to soft touch in all 4 limbs. Psych: Appropriate mood. Full affect. Oriented to person, place, time, and situation. laboratory and microbiology Laboratory Tests 02/14/25 06:27 02/12/25 07:00 02/07/25 06:43 Test 02/07/25 06:43 Range/Units Serum Glucose 98 74-106 mg/dL Problem List/Assessment/Plan Problems(with codes): (1) Nonhealing skin ulcer (2) Unspecified open wound, left foot, subsequent encounter (3) Cellulitis of left foot (4) Complicated UTI (urinary tract infection) Problem List/Assessment/Plan ASSESSMENT AND PLAN: ID Problem List: \-- Left dorsal foot ulcer, chronic \-- Suspected cellulitis \-- Possible osteomyelitis (MRI interpretation uncertain) \-- Edema of left lower extremity \-- Hypertension \-- Alcohol abuse Assessment This is a 69 y.o. female with a history of hypertension and alcohol abuse who presents with a chronic, persistent ulcer of the dorsal aspect of the left foot since October. The wound has been progressively worsening, becoming erythematous, swollen, tender, and is now limiting ambulation. She has received ongoing wound care and oral antibiotics; however, symptoms persist. On exam, she has left leg edema and an open ulcer with purulent drainage. Laboratory findings include pyuria and leukocyte esterase in urine, but otherwise unremarkable labs (WBC 6.9, Hgb 11.9, platelets 427). Lactic acid 0.8. Creatinine 6.8. Cultures have grown mello-sensitive E. coli and wound cultures show diphtheroids. Imaging: -Chest X-ray: Unremarkable. -X-ray, CT of left foot: No acute fracture, evidence of osseous demineralization, soft tissue swelling and ulceration consistent with cellulitis. -MRI Foot: Reported concern for osteomyelitis though clinician notes no enhancement on imaging; diagnostic certainty is questioned. Hemoglobin A1c in October 2024 was 5.4 (not suggestive of diabetes). The patient has good pulses in the legs. Chronicity of the wound may relate to offloading/pressure rather than vascular or glycemic etiology. 02/09: Agree with Dr. Little's wound care recommendations . patient needs offloading of the foot and care at home 02/10: wound vac is now recommended by Dr. Little . wound has a large opening however drainage appears less and the boarders of the ulcer appears less cellulitic. wound cultures are unrevealing of any true infection , suspect their may be an underlying poor vascular flow causing decreasing sensation in foot and poor wound healing 02/11: arterial duplex: No hemodynamically significant stenosis. Atherosclerosis appears mild. The dorsal pedal artery was not evaluated due to overlying bandages. 02/12: agree with transfer to SNF Plan: - agree with Dr. Reyez wound care recommendations \-- Continue vancomycin and ceftriaxone for 4 weeks given lack of convincing findings on MRI for osteomyelitis infection \-- Consider surgical consultation for possible debridement of dorsal foot ulcer and/or wound vacuum (wound Vac) therapy for enhanced closure \-- If debridement is performed, collect aerobic and anaerobic cultures from the wound \-- Consider holding off on venous Doppler ultrasound unless further clinical concern for venous insufficiency or if clinical course worsens \-- Recommend strict offloading of the affected foot after discharge to promote wound healing \-- Monitor laboratory parameters, especially creatinine (noted elevation) \-- Hemoglobin A1c not suggestive of diabetes; microvascular changes less likely contributor \-- Continue wound care; monitor for signs of progression or systemic infection Isolation Precautions: Standard Plan discussed with: Other Dietary Evaluation Review Comments: 1) Jigar 1 pk BID 2) Monitor wound status, I/O, PO intake, lab value Expected Outcomes/Goals: To meet >75% estimated needs Wound to improve Fu 3-5 days ARTURO DELCID MD Feb 14, 2025 17:21
--- NOTE | 2025-02-14 17:26 | DVHPN2 ---
Consult Progress Note Date Seen: Feb 14, 2025 Subjective Patient reports: Other (tolerate walker , ) Objective vital signs Vital Sign Date Time Temp Pulse Resp B/P (MAP) Pulse Ox O2 Delivery O2 Flow Rate FiO2 02/14/25 10:00 64 16 142/64 02/14/25 09:00 98.6 97 98.6 02/14/25 08:00 Room Air* 0 21 Total Intake and Output 02/13/25 02/13/25 02/14/25 15:00 23:00 07:00 Intake Total 50 ml 850 ml 140 ml Output Total 980 ml Balance 50 ml 850 ml -840 ml medications Current Medications Medications Dose Ordered Sig/Tony Route Start Time Stop Time Status Last Admin Dose Admin Vancomycin HCl 0 ml @ 0 mls/hr UD IV 02/06/25 12:15 Cefepime HCl 50 ml @ 12.5 mls/hr Q8HR IV 02/06/25 14:00 UNV Acetaminophen/ Hydrocodone Bitart 1 tab Q4HP PRN PO 02/06/25 12:15 02/14/25 14:27 1 TAB Ondansetron HCl 4 mg Q4HP PRN IV 02/06/25 12:15 02/08/25 17:43 4 MG Docusate Sodium 100 mg BIDPRN PRN PO 02/06/25 12:15 Acetaminophen 650 mg Q6HP PRN PO 02/06/25 12:15 Morphine Sulfate 2 mg Q4HPRN PRN IV 02/06/25 12:15 02/14/25 10:00 2 MG Metoprolol Tartrate 25 mg BID PO 02/06/25 22:00 02/14/25 09:58 25 MG Multivitamins 1 tab DAILY PO 02/07/25 10:00 02/14/25 09:58 1 TAB Thiamine HCl 100 mg DAILY PO 02/07/25 10:00 02/14/25 09:58 100 MG Folic Acid 1 mg DAILY PO 02/07/25 10:00 02/14/25 09:58 1 MG Lorazepam 1 mg Q2HP PRN IV 02/06/25 12:15 Hydralazine HCl 10 mg Q4HP PRN IV 02/08/25 09:15 02/13/25 21:52 10 MG Ceftriaxone Sodium/Dextrose 50 ml @ 50 mls/hr DAILY IV 02/11/25 10:00 02/14/25 09:59 50 MLS/HR Metronidazole 500 mg Q8HR PO 02/10/25 14:00 02/14/25 14:27 500 MG Sodium Chloride 10 ml QSHIFT@10,22 IV 02/10/25 22:00 02/14/25 09:59 10 ML Nicotine 1 patch DAILY TD 02/12/25 21:00 02/14/25 09:59 1 PATCH Vancomycin HCl 100 ml @ 200 mls/hr Q12H IV 02/13/25 11:00 02/14/25 11:00 200 MLS/HR Physical Exam: General: NAD Neck: Supple. No masses. HEENT: PERRL. Normal lids and conjunctiva. Moist mucous membranes. Oropharynx without lesions, exudates or excessive erythema. Normal appearance of the external aspects of the nose and ears. Heart: Regular rhythm, normal rate. No murmur. No lower extremity edema. Lungs: Normal respiratory effort. Clear to auscultation bilaterally. No wheezes. No crackles. Abdomen: Soft. Non-tender. Non-distended. No masses or abdominal hernia. Msk: No digital cyanosis. Normal strength and tone in all 4 limbs Skin: Warm and dry, no rashes. Edema and open ulcer with purulent drainage on dorsal left foot. Neuro: Alert. No facial droop or slurred speech. Extra-ocular movements intact. Sensation intact to soft touch in all 4 limbs. Psych: Appropriate mood. Full affect. Oriented to person, place, time, and situation. laboratory and microbiology Laboratory Tests 02/14/25 06:27 02/12/25 07:00 02/07/25 06:43 Test 02/07/25 06:43 Range/Units Serum Glucose 98 74-106 mg/dL Problem List/Assessment/Plan Problems(with codes): (1) Nonhealing skin ulcer (2) Unspecified open wound, left foot, subsequent encounter (3) Cellulitis of left foot (4) Complicated UTI (urinary tract infection) Problem List/Assessment/Plan ASSESSMENT AND PLAN: ID Problem List: \-- Left dorsal foot ulcer, chronic \-- Suspected cellulitis \-- Possible osteomyelitis (MRI interpretation uncertain) \-- Edema of left lower extremity \-- Hypertension \-- Alcohol abuse Assessment This is a 69 y.o. female with a history of hypertension and alcohol abuse who presents with a chronic, persistent ulcer of the dorsal aspect of the left foot since October. The wound has been progressively worsening, becoming erythematous, swollen, tender, and is now limiting ambulation. She has received ongoing wound care and oral antibiotics; however, symptoms persist. On exam, she has left leg edema and an open ulcer with purulent drainage. Laboratory findings include pyuria and leukocyte esterase in urine, but otherwise unremarkable labs (WBC 6.9, Hgb 11.9, platelets 427). Lactic acid 0.8. Creatinine 6.8. Cultures have grown mello-sensitive E. coli and wound cultures show diphtheroids. Imaging: -Chest X-ray: Unremarkable. -X-ray, CT of left foot: No acute fracture, evidence of osseous demineralization, soft tissue swelling and ulceration consistent with cellulitis. -MRI Foot: Reported concern for osteomyelitis though clinician notes no enhancement on imaging; diagnostic certainty is questioned. Hemoglobin A1c in October 2024 was 5.4 (not suggestive of diabetes). The patient has good pulses in the legs. Chronicity of the wound may relate to offloading/pressure rather than vascular or glycemic etiology. 02/09: Agree with Dr. Little's wound care recommendations . patient needs offloading of the foot and care at home 02/10: wound vac is now recommended by Dr. Little . wound has a large opening however drainage appears less and the boarders of the ulcer appears less cellulitic. wound cultures are unrevealing of any true infection , suspect their may be an underlying poor vascular flow causing decreasing sensation in foot and poor wound healing 8/2: arterial duplex: No hemodynamically significant stenosis. Atherosclerosis appears mild. The dorsal pedal artery was not evaluated due to overlying bandages. 8/3: agree with transfer to SNF 84: leg edema appears to be improving 8/5: unclear if report of foot MRI findings is osteomyelitis , suspicion there may be an alternative explanation for findings on imaging . will discuss with radiology Plan: - check sed rate and CRP - agree with Dr. Reyez wound care recommendations \-- Continue vancomycin and ceftriaxone for 4 weeks given lack of convincing findings on MRI for osteomyelitis infection \-- Consider surgical consultation for possible debridement of dorsal foot ulcer and/or wound vacuum (wound Vac) therapy for enhanced closure \-- If debridement is performed, collect aerobic and anaerobic cultures from the wound \-- Consider holding off on venous Doppler ultrasound unless further clinical concern for venous insufficiency or if clinical course worsens \-- Recommend strict offloading of the affected foot after discharge to promote wound healing \-- Monitor laboratory parameters, especially creatinine (noted elevation) \-- Hemoglobin A1c not suggestive of diabetes; microvascular changes less likely contributor \-- Continue wound care; monitor for signs of progression or systemic infection Isolation Precautions: Standard Plan discussed with: Patient Dietary Evaluation Review Comments: 1) Jigar 1 pk BID 2) Monitor wound status, I/O, PO intake, lab value Expected Outcomes/Goals: To meet >75% estimated needs Wound to improve Fu 3-5 days ARTURO DELCID MD Feb 14, 2025 17:26
[2025-02-14 20:00] VITALS: PULSE 62; RESP 18; O2SAT 100
[2025-02-14 21:00] VITALS: BP 148/77; PULSE 70; RESP 18; TEMP 98.5; O2SAT 100
[2025-02-14] MEDS: LOPERAMIDE HCL 2 MG CAP/TAB PO PRN (22:01)
[2025-02-15] VITALS (8 sets, daily range): BP systolic 141–156; BP diastolic 71–86; PULSE 60–71; RESP 16–20; TEMP 97.2–98.3; O2SAT 96–100
[2025-02-15] MEDS: MELATONIN 5 MG TAB PO ONE ×2 (02:02→02:07)
[2025-02-15] MEDS: MELATONIN 5 MG TAB ONE (02:08)
--- NOTE | 2025-02-15 15:50 | DVHPN2 ---
Subjective SHE IS DISCHARGED HOWEVER STILL WAITING IN THE HOSPITAL BECAUSE THERE IS NO JAIL BEDS AVAILABLE FOR HER TRANSFER TO CONTINUE IV ANTIBIOTICS RECOMMENDED BY INFECTIOUS DISEASE. Changes from previous H/P or p: No Changes Musculoskeletal: foot pain (left) Skin: Lesions (left foot) Objective Vitals Vital Signs Date Time Temp Pulse Resp B/P (MAP) Pulse Ox O2 Delivery O2 Flow Rate FiO2 02/15/25 13:49 68 17 146/86 02/15/25 13:00 97.5 100 97.5 02/15/25 07:50 Room Air* 0 21 Intake/Output Intake and Output 02/15/25 07:00 Intake Total 765 ml Output Total 980 ml Balance -215 ml Intake Oral 515 ml IV Total 250 ml Output Urine Total 980 ml # Voids 3 Exam HEENT neck supple no JVD. Heart regular rate and rhythm S1-S2. Lungs fair air movement without rales wheezes. Abdomen soft nontender positive bowel sounds. Extremities no edema positive pulses. Medications Current Medications Medications Dose Ordered Sig/Tony Route Start Time Stop Time Status Last Admin Dose Admin Vancomycin HCl 0 ml @ 0 mls/hr UD IV 02/06/25 12:15 Cefepime HCl 50 ml @ 12.5 mls/hr Q8HR IV 02/06/25 14:00 UNV Ondansetron HCl 4 mg Q4HP PRN IV 02/06/25 12:15 02/08/25 17:43 4 MG Docusate Sodium 100 mg BIDPRN PRN PO 02/06/25 12:15 Acetaminophen 650 mg Q6HP PRN PO 02/06/25 12:15 Metoprolol Tartrate 25 mg BID PO 02/06/25 22:00 02/15/25 08:55 25 MG Multivitamins 1 tab DAILY PO 02/07/25 10:00 02/15/25 08:55 1 TAB Thiamine HCl 100 mg DAILY PO 02/07/25 10:00 02/15/25 08:55 100 MG Folic Acid 1 mg DAILY PO 02/07/25 10:00 02/15/25 08:55 1 MG Lorazepam 1 mg Q2HP PRN IV 02/06/25 12:15 Hydralazine HCl 10 mg Q4HP PRN IV 02/08/25 09:15 02/13/25 21:52 10 MG Ceftriaxone Sodium/Dextrose 50 ml @ 50 mls/hr DAILY IV 02/11/25 10:00 02/15/25 08:58 50 MLS/HR Metronidazole 500 mg Q8HR PO 02/10/25 14:00 02/15/25 13:17 500 MG Sodium Chloride 10 ml QSHIFT@10,22 IV 02/10/25 22:00 02/15/25 08:56 10 ML Nicotine 1 patch DAILY TD 02/12/25 21:00 02/15/25 08:55 1 PATCH Vancomycin HCl 100 ml @ 200 mls/hr Q12H IV 02/13/25 11:00 02/15/25 11:00 200 MLS/HR Loperamide HCl 2 mg PRN PRN PO 02/14/25 21:30 02/15/25 13:17 2 MG Laboratory Results Laboratory Tests 02/07/25 06:43 02/12/25 07:00 02/15/25 06:13 Urinalysis Test 02/06/25 07:40 Urine Color Light-yellow (Yellow) Urine Clarity Cloudy (Clear) H Urine pH 6.0 (5.0-9.0) Urine Specific [place] 1.007 (1.001-1.035) Urine Protein 1+ (Negative) H Urine Ketones Negative (Negative) Urine Blood 2+ /uL (Negative) H Urine Nitrite Negative (Negative) Urine Bilirubin Negative (Negative) Urine Urobilinogen Normal mg/dL (Negative) Urine Leukocyte Esterase 3+ /uL (Negative) Urine RBC 48 /hpf (0 - 4) Urine WBC Clumps Present /hpf (None Seen) Urine Microscopic WBC 1624 /HPF (0-5) H Urine Squamous Epithelial Cells None seen /hpf (<5) Urine Bacteria Few /hpf (None Seen) H Urine Glucose Normal mg/dL (Normal) Microbiology Microbiology Date/Time Source Procedure Growth Status 02/07/25 11:42 Foot Left Gram Stain - Final Complete 02/07/25 11:42 Foot Left Wound Culture - Final Complete 02/06/25 07:40 Voided Urine Urine Culture - Final Escherichia coli Complete 02/06/25 06:38 Blood Blood Culture - Final NO GROWTH AFTER 5 DAYS OF INCUBATION. Complete Assessment/Plan Assessment/Plan 1. LEFT FOOT WOUND WITH A CELLULITIS 2. LEFT FOOT OSTEOMYELITIS 3. HYPERTENSION 4. UTI 5. Vaginal discharge No changes to present management. Patient is clinically stable. Encouraged out of bed ambulate as tolerated with a walker. [employer] are working to find a intermediate facility bed for her where she can get her IV antibiotics. Till then continue current IV antibiotics in the hospital and rest of supportive care and treatment. Discussed regarding activity to minimize DVT PE given a prolonged hospitalization. Plan discussed with: Patient, Other Date of Service: Feb 15, 2025 Billing Provider: RAND BOWENS MD Common Visit Codes: [id number] INP/OBS CARE(LOW) RAND BOWENS MD Feb 15, 2025 15:50
[2025-02-15] MEDS: MORPHINE SULFATE INJ 2 MG/ml SYRG IV PRN (17:45)
[2025-02-16] VITALS (7 sets, daily range): BP systolic 138–148; BP diastolic 76–83; PULSE 61–71; RESP 16–18; TEMP 97.5–98.3; O2SAT 97–100
[2025-02-16] MEDS: TEMAZEPAM 15 MG CAP PO ONE (01:30)
[2025-02-16] MEDS: HYDROcodone-ACET 5/325MG TAB PO PRN (06:40)
--- NOTE | 2025-02-16 20:18 | DVHPN2 ---
Subjective Still waiting for [facility] facility placement otherwise comfortable no complaints continue to receive IV antibiotics Changes from previous H/P or p: No Changes Musculoskeletal: foot pain (left) Skin: Lesions (left foot) Objective Vitals Vital Signs Date Time Temp Pulse Resp B/P (MAP) Pulse Ox O2 Delivery O2 Flow Rate FiO2 02/16/25 16:46 97.9 64 16 139/79 (99) 98 97.9 02/16/25 08:00 Room Air* 0 21 Intake/Output Intake and Output 02/16/25 07:00 Intake Total 2390 ml Output Total 1150 ml Balance 1240 ml Intake Oral 2140 ml IV Total 250 ml Output Urine Total 1150 ml # Voids 4 Exam HEENT neck supple no JVD. Heart regular rate and rhythm S1-S2. Lungs fair air movement without rales wheezes. Abdomen soft nontender positive bowel sounds. Extremities no edema positive pulses. Medications Current Medications Medications Dose Ordered Sig/Tony Route Start Time Stop Time Status Last Admin Dose Admin Vancomycin HCl 0 ml @ 0 mls/hr UD IV 02/06/25 12:15 Cefepime HCl 50 ml @ 12.5 mls/hr Q8HR IV 02/06/25 14:00 UNV Ondansetron HCl 4 mg Q4HP PRN IV 02/06/25 12:15 02/16/25 06:54 4 MG Docusate Sodium 100 mg BIDPRN PRN PO 02/06/25 12:15 Acetaminophen 650 mg Q6HP PRN PO 02/06/25 12:15 Metoprolol Tartrate 25 mg BID PO 02/06/25 22:00 02/16/25 11:27 25 MG Multivitamins 1 tab DAILY PO 02/07/25 10:00 02/16/25 11:27 1 TAB Thiamine HCl 100 mg DAILY PO 02/07/25 10:00 02/16/25 11:26 100 MG Folic Acid 1 mg DAILY PO 02/07/25 10:00 02/16/25 11:27 1 MG Lorazepam 1 mg Q2HP PRN IV 02/06/25 12:15 Hydralazine HCl 10 mg Q4HP PRN IV 02/08/25 09:15 02/13/25 21:52 10 MG Ceftriaxone Sodium/Dextrose 50 ml @ 50 mls/hr DAILY IV 02/11/25 10:00 02/16/25 11:26 50 MLS/HR Metronidazole 500 mg Q8HR PO 02/10/25 14:00 02/16/25 14:08 500 MG Sodium Chloride 10 ml QSHIFT@10,22 IV 02/10/25 22:00 02/16/25 11:26 10 ML Nicotine 1 patch DAILY TD 02/12/25 21:00 02/16/25 11:26 1 PATCH Vancomycin HCl 100 ml @ 200 mls/hr Q12H IV 02/13/25 11:00 02/16/25 12:44 200 MLS/HR Loperamide HCl 2 mg PRN PRN PO 02/14/25 21:30 02/15/25 13:17 2 MG Morphine Sulfate 2 mg Q4HPRN PRN IV 02/15/25 17:00 02/16/25 16:18 2 MG Acetaminophen/ Hydrocodone Bitart 1 tab Q4HPRN PRN PO 02/15/25 17:00 02/16/25 06:40 1 TAB Laboratory Results Laboratory Tests 02/07/25 06:43 02/12/25 07:00 02/16/25 07:04 Urinalysis Test 02/06/25 07:40 Urine Color Light-yellow (Yellow) Urine Clarity Cloudy (Clear) H Urine pH 6.0 (5.0-9.0) Urine Specific Sayre 1.007 (1.001-1.035) Urine Protein 1+ (Negative) H Urine Ketones Negative (Negative) Urine Blood 2+ /uL (Negative) H Urine Nitrite Negative (Negative) Urine Bilirubin Negative (Negative) Urine Urobilinogen Normal mg/dL (Negative) Urine Leukocyte Esterase 3+ /uL (Negative) Urine RBC 48 /hpf (0 - 4) Urine WBC Clumps Present /hpf (None Seen) Urine Microscopic WBC 1624 /HPF (0-5) H Urine Squamous Epithelial Cells None seen /hpf (<5) Urine Bacteria Few /hpf (None Seen) H Urine Glucose Normal mg/dL (Normal) Microbiology Microbiology Date/Time Source Procedure Growth Status 02/07/25 11:42 Foot Left Gram Stain - Final Complete 02/07/25 11:42 Foot Left Wound Culture - Final Complete 02/06/25 07:40 Voided Urine Urine Culture - Final Escherichia coli Complete 02/06/25 06:38 Blood Blood Culture - Final NO GROWTH AFTER 5 DAYS OF INCUBATION. Complete Assessment/Plan Assessment/Plan 1. LEFT FOOT WOUND WITH A CELLULITIS 2. LEFT FOOT OSTEOMYELITIS 3. HYPERTENSION 4. UTI 5. Vaginal discharge Continue present management and when bed available stable to be discharged to [facility] facility. Discussed with the nurse. Plan discussed with: Patient Problem List: (1) Cellulitis of left foot (2) Unspecified open wound, left foot, subsequent encounter (3) Nonhealing skin ulcer Date of Service: Feb 16, 2025 Billing Provider: RAND BOWENS MD Common Visit Codes: [id number] INP/OBS CARE(LOW) RAND BOWENS MD Feb 16, 2025 20:18
[2025-02-17] VITALS (7 sets, daily range): BP systolic 116–154; BP diastolic 72–88; PULSE 61–74; RESP 16–19; TEMP 97.4–98.1; O2SAT 97–100
[2025-02-17] MEDS: VANCOMYCIN 500mg/100mL 100 ML IV SCH (00:46)
[2025-02-17 07:59] LABS: Hematocrit 32.9 % (36.0-46.0); Hemoglobin 11.2 g/dL (12.2-16.2); Mean Corpuscular Hemoglobin 31.6 pg (28.0-32.0); Mean Corpuscular Volume 92.9 fL (80.0-100.0)
[2025-02-17 09:03] LABS: RBC Morphology Normal; Total Cells Counted 100.0 (100)
[2025-02-17] MEDS: diphenhdrAMINE HCL 25 MG CAP PO PRN (10:14)
--- NOTE | 2025-02-17 22:15 | DVHPN2 ---
Consult Progress Note Date Seen: Feb 15, 2025 Subjective Patient reports: Feels worse (noting some difficulty sleeping and waiting for a SNF bed to continue antibiotics at ) Objective vital signs Vital Sign Date Time Temp Pulse Resp B/P (MAP) Pulse Ox O2 Delivery O2 Flow Rate FiO2 02/17/25 21:00 97.8 74 16 154/88 (110) 98 97.8 02/17/25 08:00 Room Air* 0 21 Total Intake and Output 02/16/25 02/16/25 02/17/25 15:00 23:00 07:00 Intake Total 790 ml 750 ml 600 ml Output Total 300 ml Balance 790 ml 450 ml 600 ml medications Current Medications Medications Dose Ordered Sig/Tony Route Start Time Stop Time Status Last Admin Dose Admin Cefepime HCl 50 ml @ 12.5 mls/hr Q8HR IV 02/06/25 14:00 UNV Ondansetron HCl 4 mg Q4HP PRN IV 02/06/25 12:15 02/16/25 06:54 4 MG Docusate Sodium 100 mg BIDPRN PRN PO 02/06/25 12:15 Acetaminophen 650 mg Q6HP PRN PO 02/06/25 12:15 Metoprolol Tartrate 25 mg BID PO 02/06/25 22:00 02/17/25 10:15 25 MG Multivitamins 1 tab DAILY PO 02/07/25 10:00 02/17/25 10:15 1 TAB Thiamine HCl 100 mg DAILY PO 02/07/25 10:00 02/17/25 10:15 100 MG Folic Acid 1 mg DAILY PO 02/07/25 10:00 02/17/25 10:15 1 MG Lorazepam 1 mg Q2HP PRN IV 02/06/25 12:15 Hydralazine HCl 10 mg Q4HP PRN IV 02/08/25 09:15 02/13/25 21:52 10 MG Ceftriaxone Sodium/Dextrose 50 ml @ 50 mls/hr DAILY IV 02/11/25 10:00 02/17/25 10:13 50 MLS/HR Metronidazole 500 mg Q8HR PO 02/10/25 14:00 02/17/25 13:33 500 MG Sodium Chloride 10 ml QSHIFT@10,22 IV 02/10/25 22:00 02/17/25 10:15 10 ML Nicotine 1 patch DAILY TD 02/12/25 21:00 02/17/25 10:14 1 PATCH Loperamide HCl 2 mg PRN PRN PO 02/14/25 21:30 02/17/25 10:15 2 MG Morphine Sulfate 2 mg Q4HPRN PRN IV 02/15/25 17:00 02/17/25 17:01 2 MG Acetaminophen/ Hydrocodone Bitart 1 tab Q4HPRN PRN PO 02/15/25 17:00 02/17/25 20:58 1 TAB Vancomycin HCl 100 ml @ 200 mls/hr Q12H IV 02/17/25 01:00 02/17/25 13:00 200 MLS/HR Zinc Acetate/ Diphenhydramine 1 applic Q6HP PRN TOP 02/17/25 11:45 Physical Exam: General: NAD Neck: Supple. No masses. HEENT: PERRL. Normal lids and conjunctiva. Moist mucous membranes. Oropharynx without lesions, exudates or excessive erythema. Normal appearance of the external aspects of the nose and ears. Heart: Regular rhythm, normal rate. No murmur. No lower extremity edema. Lungs: Normal respiratory effort. Clear to auscultation bilaterally. No wheezes. No crackles. Abdomen: Soft. Non-tender. Non-distended. No masses or abdominal hernia. Msk: No digital cyanosis. Normal strength and tone in all 4 limbs Skin: Warm and dry, no rashes. Edema and open ulcer with purulent drainage on dorsal left foot. Neuro: Alert. No facial droop or slurred speech. Extra-ocular movements intact. Sensation intact to soft touch in all 4 limbs. Psych: Appropriate mood. Full affect. Oriented to person, place, time, and situation. laboratory and microbiology Laboratory Tests 02/17/25 06:33 02/07/25 06:43 Test 02/07/25 06:43 Range/Units Serum Glucose 98 74-106 mg/dL Problem List/Assessment/Plan Problems(with codes): (1) Complicated UTI (urinary tract infection) (2) Cellulitis of left foot (3) Unspecified open wound, left foot, subsequent encounter (4) Nonhealing skin ulcer Problem List/Assessment/Plan ASSESSMENT AND PLAN: ID Problem List: \-- Left dorsal foot ulcer, chronic \-- Suspected cellulitis \-- Possible osteomyelitis (MRI interpretation uncertain) \-- Edema of left lower extremity \-- Hypertension \-- Alcohol abuse Assessment This is a 69 y.o. female with a history of hypertension and alcohol abuse who presents with a chronic, persistent ulcer of the dorsal aspect of the left foot since October. The wound has been progressively worsening, becoming erythematous, swollen, tender, and is now limiting ambulation. She has received ongoing wound care and oral antibiotics; however, symptoms persist. On exam, she has left leg edema and an open ulcer with purulent drainage. Laboratory findings include pyuria and leukocyte esterase in urine, but otherwise unremarkable labs (WBC 6.9, Hgb 11.9, platelets 427). Lactic acid 0.8. Creatinine 6.8. Cultures have grown mello-sensitive E. coli and wound cultures show diphtheroids. Imaging: -Chest X-ray: Unremarkable. -X-ray, CT of left foot: No acute fracture, evidence of osseous demineralization, soft tissue swelling and ulceration consistent with cellulitis. -MRI Foot: Reported concern for osteomyelitis though clinician notes no enhancement on imaging; diagnostic certainty is questioned. Hemoglobin A1c in October 2024 was 5.4 (not suggestive of diabetes). The patient has good pulses in the legs. Chronicity of the wound may relate to offloading/pressure rather than vascular or glycemic etiology. 02/09: Agree with Dr. Little's wound care recommendations . patient needs offloading of the foot and care at home 02/10: wound vac is now recommended by Dr. Little . wound has a large opening however drainage appears less and the boarders of the ulcer appears less cellulitic. wound cultures are unrevealing of any true infection , suspect their may be an underlying poor vascular flow causing decreasing sensation in foot and poor wound healing 8/2: arterial duplex: No hemodynamically significant stenosis. Atherosclerosis appears mild. The dorsal pedal artery was not evaluated due to overlying bandages. 8/3: agree with transfer to SNF 84: leg edema appears to be improving 85: unclear if report of foot MRI findings is osteomyelitis , suspicion there may be an alternative explanation for findings on imaging . will discuss with radiology 02/15: ambulating with a walker Plan: - check sed rate and CRP - agree with Dr. Reyez wound care recommendations \-- Continue vancomycin and ceftriaxone for 4 weeks given lack of convincing findings on MRI for osteomyelitis infection \-- Consider surgical consultation for possible debridement of dorsal foot ulcer and/or wound vacuum (wound Vac) therapy for enhanced closure \-- If debridement is performed, collect aerobic and anaerobic cultures from the wound \-- Consider holding off on venous Doppler ultrasound unless further clinical concern for venous insufficiency or if clinical course worsens \-- Recommend strict offloading of the affected foot after discharge to promote wound healing \-- Monitor laboratory parameters, especially creatinine (noted elevation) \-- Hemoglobin A1c not suggestive of diabetes; microvascular changes less likely contributor \-- Continue wound care; monitor for signs of progression or systemic infection Isolation Precautions: Standard Plan discussed with: Other Dietary Evaluation Review Comments: 1) Jigar 1 pk BID 2) Monitor wound status, I/O, PO intake, lab value Expected Outcomes/Goals: To meet >75% estimated needs Wound to improve Fu 3-5 days ARTURO DELCID MD Feb 17, 2025 22:15
--- NOTE | 2025-02-17 22:15 | DVHPN2 ---
Consult Progress Note Date Seen: Feb 16, 2025 Subjective Patient reports: Other (sed rate is elevated at 44 , crp normal at 0.92 . vancomycin throth is subtherapeutic and needs to be redosed ) Objective vital signs Vital Sign Date Time Temp Pulse Resp B/P (MAP) Pulse Ox O2 Delivery O2 Flow Rate FiO2 02/17/25 21:00 97.8 74 16 154/88 (110) 98 97.8 02/17/25 08:00 Room Air* 0 21 Total Intake and Output 02/16/25 02/16/25 02/17/25 15:00 23:00 07:00 Intake Total 790 ml 750 ml 600 ml Output Total 300 ml Balance 790 ml 450 ml 600 ml medications Current Medications Medications Dose Ordered Sig/Tony Route Start Time Stop Time Status Last Admin Dose Admin Cefepime HCl 50 ml @ 12.5 mls/hr Q8HR IV 02/06/25 14:00 UNV Ondansetron HCl 4 mg Q4HP PRN IV 02/06/25 12:15 02/16/25 06:54 4 MG Docusate Sodium 100 mg BIDPRN PRN PO 02/06/25 12:15 Acetaminophen 650 mg Q6HP PRN PO 02/06/25 12:15 Metoprolol Tartrate 25 mg BID PO 02/06/25 22:00 02/17/25 10:15 25 MG Multivitamins 1 tab DAILY PO 02/07/25 10:00 02/17/25 10:15 1 TAB Thiamine HCl 100 mg DAILY PO 02/07/25 10:00 02/17/25 10:15 100 MG Folic Acid 1 mg DAILY PO 02/07/25 10:00 02/17/25 10:15 1 MG Lorazepam 1 mg Q2HP PRN IV 02/06/25 12:15 Hydralazine HCl 10 mg Q4HP PRN IV 02/08/25 09:15 02/13/25 21:52 10 MG Ceftriaxone Sodium/Dextrose 50 ml @ 50 mls/hr DAILY IV 02/11/25 10:00 02/17/25 10:13 50 MLS/HR Metronidazole 500 mg Q8HR PO 02/10/25 14:00 02/17/25 13:33 500 MG Sodium Chloride 10 ml QSHIFT@10,22 IV 02/10/25 22:00 02/17/25 10:15 10 ML Nicotine 1 patch DAILY TD 02/12/25 21:00 02/17/25 10:14 1 PATCH Loperamide HCl 2 mg PRN PRN PO 02/14/25 21:30 02/17/25 10:15 2 MG Morphine Sulfate 2 mg Q4HPRN PRN IV 02/15/25 17:00 02/17/25 17:01 2 MG Acetaminophen/ Hydrocodone Bitart 1 tab Q4HPRN PRN PO 02/15/25 17:00 02/17/25 20:58 1 TAB Vancomycin HCl 100 ml @ 200 mls/hr Q12H IV 02/17/25 01:00 02/17/25 13:00 200 MLS/HR Zinc Acetate/ Diphenhydramine 1 applic Q6HP PRN TOP 02/17/25 11:45 Physical Exam: General: NAD Neck: Supple. No masses. HEENT: PERRL. Normal lids and conjunctiva. Moist mucous membranes. Oropharynx without lesions, exudates or excessive erythema. Normal appearance of the external aspects of the nose and ears. Heart: Regular rhythm, normal rate. No murmur. No lower extremity edema. Lungs: Normal respiratory effort. Clear to auscultation bilaterally. No wheezes. No crackles. Abdomen: Soft. Non-tender. Non-distended. No masses or abdominal hernia. Msk: No digital cyanosis. Normal strength and tone in all 4 limbs Skin: Warm and dry, no rashes. Edema and open ulcer with purulent drainage on dorsal left foot. Neuro: Alert. No facial droop or slurred speech. Extra-ocular movements intact. Sensation intact to soft touch in all 4 limbs. Psych: Appropriate mood. Full affect. Oriented to person, place, time, and situation. laboratory and microbiology Laboratory Tests 02/17/25 06:33 02/07/25 06:43 Test 02/07/25 06:43 Range/Units Serum Glucose 98 74-106 mg/dL Problem List/Assessment/Plan Problems(with codes): (1) Nonhealing skin ulcer (2) Unspecified open wound, left foot, subsequent encounter (3) Cellulitis of left foot (4) Complicated UTI (urinary tract infection) Problem List/Assessment/Plan ASSESSMENT AND PLAN: ID Problem List: \-- Left dorsal foot ulcer, chronic \-- Suspected cellulitis \-- Possible osteomyelitis (MRI interpretation uncertain) \-- Edema of left lower extremity \-- Hypertension \-- Alcohol abuse Assessment This is a 69 y.o. female with a history of hypertension and alcohol abuse who presents with a chronic, persistent ulcer of the dorsal aspect of the left foot since October. The wound has been progressively worsening, becoming erythematous, swollen, tender, and is now limiting ambulation. She has received ongoing wound care and oral antibiotics; however, symptoms persist. On exam, she has left leg edema and an open ulcer with purulent drainage. Laboratory findings include pyuria and leukocyte esterase in urine, but otherwise unremarkable labs (WBC 6.9, Hgb 11.9, platelets 427). Lactic acid 0.8. Creatinine 6.8. Cultures have grown mello-sensitive E. coli and wound cultures show diphtheroids. Imaging: -Chest X-ray: Unremarkable. -X-ray, CT of left foot: No acute fracture, evidence of osseous demineralization, soft tissue swelling and ulceration consistent with cellulitis. -MRI Foot: Reported concern for osteomyelitis though clinician notes no enhancement on imaging; diagnostic certainty is questioned. Hemoglobin A1c in October 2024 was 5.4 (not suggestive of diabetes). The patient has good pulses in the legs. Chronicity of the wound may relate to offloading/pressure rather than vascular or glycemic etiology. 02/09: Agree with Dr. Little's wound care recommendations . patient needs offloading of the foot and care at home 02/10: wound vac is now recommended by Dr. Little . wound has a large opening however drainage appears less and the boarders of the ulcer appears less cellulitic. wound cultures are unrevealing of any true infection , suspect their may be an underlying poor vascular flow causing decreasing sensation in foot and poor wound healing 8/2: arterial duplex: No hemodynamically significant stenosis. Atherosclerosis appears mild. The dorsal pedal artery was not evaluated due to overlying bandages. 83: agree with transfer to SNF 02/13: leg edema appears to be improving 85: unclear if report of foot MRI findings is osteomyelitis , suspicion there may be an alternative explanation for findings on imaging . will discuss with radiology 6: ambulating with a walker 87: vancomycin troth is subtherapeutic and needs to be redosed Plan: - discuss with pharmacy to redose vancomycin to keep troth between 15-20 - check sed rate and CRP - agree with Dr. Reyez wound care recommendations \-- Continue vancomycin and ceftriaxone for 4 weeks given lack of convincing findings on MRI for osteomyelitis infection \-- Consider surgical consultation for possible debridement of dorsal foot ulcer and/or wound vacuum (wound Vac) therapy for enhanced closure \-- If debridement is performed, collect aerobic and anaerobic cultures from the wound \-- Consider holding off on venous Doppler ultrasound unless further clinical concern for venous insufficiency or if clinical course worsens \-- Recommend strict offloading of the affected foot after discharge to promote wound healing \-- Monitor laboratory parameters, especially creatinine (noted elevation) \-- Hemoglobin A1c not suggestive of diabetes; microvascular changes less likely contributor \-- Continue wound care; monitor for signs of progression or systemic infection Isolation Precautions: Standard Plan discussed with: Other Dietary Evaluation Review Comments: 1) Jigar 1 pk BID 2) Monitor wound status, I/O, PO intake, lab value Expected Outcomes/Goals: To meet >75% estimated needs Wound to improve Fu 3-5 days ARTURO DELCID MD Feb 17, 2025 22:15
--- NOTE | 2025-02-17 22:20 | DVHPN2 ---
Consult Progress Note Date Seen: Feb 17, 2025 Subjective Patient reports: Other (ontinues to ambulate with minimal pain noted when walking , deciding which snf she wants to go to ) Objective vital signs Vital Sign Date Time Temp Pulse Resp B/P (MAP) Pulse Ox O2 Delivery O2 Flow Rate FiO2 02/17/25 21:00 97.8 74 16 154/88 (110) 98 97.8 02/17/25 08:00 Room Air* 0 21 Total Intake and Output 02/16/25 02/16/25 02/17/25 15:00 23:00 07:00 Intake Total 790 ml 750 ml 600 ml Output Total 300 ml Balance 790 ml 450 ml 600 ml medications Current Medications Medications Dose Ordered Sig/Tony Route Start Time Stop Time Status Last Admin Dose Admin Cefepime HCl 50 ml @ 12.5 mls/hr Q8HR IV 02/06/25 14:00 UNV Ondansetron HCl 4 mg Q4HP PRN IV 02/06/25 12:15 02/16/25 06:54 4 MG Docusate Sodium 100 mg BIDPRN PRN PO 02/06/25 12:15 Acetaminophen 650 mg Q6HP PRN PO 02/06/25 12:15 Metoprolol Tartrate 25 mg BID PO 02/06/25 22:00 02/17/25 10:15 25 MG Multivitamins 1 tab DAILY PO 02/07/25 10:00 02/17/25 10:15 1 TAB Thiamine HCl 100 mg DAILY PO 02/07/25 10:00 02/17/25 10:15 100 MG Folic Acid 1 mg DAILY PO 02/07/25 10:00 02/17/25 10:15 1 MG Lorazepam 1 mg Q2HP PRN IV 02/06/25 12:15 Hydralazine HCl 10 mg Q4HP PRN IV 02/08/25 09:15 02/13/25 21:52 10 MG Ceftriaxone Sodium/Dextrose 50 ml @ 50 mls/hr DAILY IV 02/11/25 10:00 02/17/25 10:13 50 MLS/HR Metronidazole 500 mg Q8HR PO 02/10/25 14:00 02/17/25 13:33 500 MG Sodium Chloride 10 ml QSHIFT@10,22 IV 02/10/25 22:00 02/17/25 10:15 10 ML Nicotine 1 patch DAILY TD 02/12/25 21:00 02/17/25 10:14 1 PATCH Loperamide HCl 2 mg PRN PRN PO 02/14/25 21:30 02/17/25 10:15 2 MG Morphine Sulfate 2 mg Q4HPRN PRN IV 02/15/25 17:00 02/17/25 17:01 2 MG Acetaminophen/ Hydrocodone Bitart 1 tab Q4HPRN PRN PO 02/15/25 17:00 02/17/25 20:58 1 TAB Vancomycin HCl 100 ml @ 200 mls/hr Q12H IV 02/17/25 01:00 02/17/25 13:00 200 MLS/HR Zinc Acetate/ Diphenhydramine 1 applic Q6HP PRN TOP 02/17/25 11:45 Physical Exam: General: NAD Neck: Supple. No masses. HEENT: PERRL. Normal lids and conjunctiva. Moist mucous membranes. Oropharynx without lesions, exudates or excessive erythema. Normal appearance of the external aspects of the nose and ears. Heart: Regular rhythm, normal rate. No murmur. No lower extremity edema. Lungs: Normal respiratory effort. Clear to auscultation bilaterally. No wheezes. No crackles. Abdomen: Soft. Non-tender. Non-distended. No masses or abdominal hernia. Msk: No digital cyanosis. Normal strength and tone in all 4 limbs Skin: Warm and dry, no rashes. Edema and open ulcer with purulent drainage on dorsal left foot. Neuro: Alert. No facial droop or slurred speech. Extra-ocular movements intact. Sensation intact to soft touch in all 4 limbs. Psych: Appropriate mood. Full affect. Oriented to person, place, time, and situation. laboratory and microbiology Laboratory Tests 02/17/25 06:33 02/07/25 06:43 Test 02/07/25 06:43 Range/Units Serum Glucose 98 74-106 mg/dL Problem List/Assessment/Plan Problems(with codes): (1) Complicated UTI (urinary tract infection) (2) Unspecified open wound, left foot, subsequent encounter (3) Cellulitis of left foot (4) Nonhealing skin ulcer Problem List/Assessment/Plan ASSESSMENT AND PLAN: ID Problem List: \-- Left dorsal foot ulcer, chronic \-- Suspected cellulitis \-- Possible osteomyelitis (MRI interpretation uncertain) \-- Edema of left lower extremity \-- Hypertension \-- Alcohol abuse Assessment This is a 69 y.o. female with a history of hypertension and alcohol abuse who presents with a chronic, persistent ulcer of the dorsal aspect of the left foot since October. The wound has been progressively worsening, becoming erythematous, swollen, tender, and is now limiting ambulation. She has received ongoing wound care and oral antibiotics; however, symptoms persist. On exam, she has left leg edema and an open ulcer with purulent drainage. Laboratory findings include pyuria and leukocyte esterase in urine, but otherwise unremarkable labs (WBC 6.9, Hgb 11.9, platelets 427). Lactic acid 0.8. Creatinine 6.8. Cultures have grown mello-sensitive E. coli and wound cultures show diphtheroids. Imaging: -Chest X-ray: Unremarkable. -X-ray, CT of left foot: No acute fracture, evidence of osseous demineralization, soft tissue swelling and ulceration consistent with cellulitis. -MRI Foot: Reported concern for osteomyelitis though clinician notes no enhancement on imaging; diagnostic certainty is questioned. Hemoglobin A1c in October 2024 was 5.4 (not suggestive of diabetes). The patient has good pulses in the legs. Chronicity of the wound may relate to offloading/pressure rather than vascular or glycemic etiology. 02/09: Agree with Dr. Little's wound care recommendations . patient needs offloading of the foot and care at home 02/10: wound vac is now recommended by Dr. Little . wound has a large opening however drainage appears less and the boarders of the ulcer appears less cellulitic. wound cultures are unrevealing of any true infection , suspect their may be an underlying poor vascular flow causing decreasing sensation in foot and poor wound healing 82: arterial duplex: No hemodynamically significant stenosis. Atherosclerosis appears mild. The dorsal pedal artery was not evaluated due to overlying bandages. 83: agree with transfer to SNF 02/13: leg edema appears to be improving 85: unclear if report of foot MRI findings is osteomyelitis , suspicion there may be an alternative explanation for findings on imaging . will discuss with radiology 6: ambulating with a walker 8: vancomycin troth is subtherapeutic and needs to be redosed 02/17: tolerating current antibiotic regimen Plan: - discuss with pharmacy to re dose vancomycin to keep troth between 15-20 - check sed rate and CRP - agree with Dr. Reyez wound care recommendations \-- Continue vancomycin and ceftriaxone for 4 weeks given lack of convincing findings on MRI for osteomyelitis infection \-- Consider surgical consultation for possible debridement of dorsal foot ulcer and/or wound vacuum (wound Vac) therapy for enhanced closure \-- If debridement is performed, collect aerobic and anaerobic cultures from the wound \-- Consider holding off on venous Doppler ultrasound unless further clinical concern for venous insufficiency or if clinical course worsens \-- Recommend strict offloading of the affected foot after discharge to promote wound healing \-- Monitor laboratory parameters, especially creatinine (noted elevation) \-- Hemoglobin A1c not suggestive of diabetes; microvascular changes less likely contributor \-- Continue wound care; monitor for signs of progression or systemic infection Isolation Precautions: Standard Plan discussed with: Other Dietary Evaluation Review Comments: 1) Jigar 1 pk BID 2) Monitor wound status, I/O, PO intake, lab value Expected Outcomes/Goals: To meet >75% estimated needs Wound to improve Fu 3-5 days ARTURO DELCID MD Feb 17, 2025 22:20
[2025-02-17] MEDS ORDERED: VANCOMYCIN PER PHARMACY 0 MG IV SCH (22:30)
[2025-02-17] MEDS: diphenhdrAMINE-ZINC ACETATE 1 APPLIC APPL TOP PRN (22:34)
--- NOTE | 2025-02-17 22:43 | DVHPN2 ---
Subjective Still waiting for [facility] facility placement otherwise comfortable no complaints continue to receive IV antibiotics. Complaining of itchy on her back. Changes from previous H/P or p: No Changes Musculoskeletal: foot pain (left) Skin: Lesions (left foot) Objective Vitals Vital Signs Date Time Temp Pulse Resp B/P (MAP) Pulse Ox O2 Delivery O2 Flow Rate FiO2 02/17/25 22:33 68 132/68 02/17/25 21:00 97.8 16 98 97.8 02/17/25 08:00 Room Air* 0 21 Intake/Output Intake and Output 02/17/25 06:59 Intake Total 2140 ml Output Total 300 ml Balance 1840 ml Intake Oral 1890 ml IV Total 250 ml Stool Total 300 ml # Voids 13 Exam HEENT neck supple no JVD. Heart regular rate and rhythm S1-S2. Lungs fair air movement without rales wheezes. Abdomen soft nontender positive bowel sounds. Extremities no edema positive pulses. Medications Current Medications Medications Dose Ordered Sig/Tony Route Start Time Stop Time Status Last Admin Dose Admin Cefepime HCl 50 ml @ 12.5 mls/hr Q8HR IV 02/06/25 14:00 UNV Ondansetron HCl 4 mg Q4HP PRN IV 02/06/25 12:15 02/16/25 06:54 4 MG Docusate Sodium 100 mg BIDPRN PRN PO 02/06/25 12:15 Acetaminophen 650 mg Q6HP PRN PO 02/06/25 12:15 Metoprolol Tartrate 25 mg BID PO 02/06/25 22:00 02/17/25 22:33 25 MG Multivitamins 1 tab DAILY PO 02/07/25 10:00 02/17/25 10:15 1 TAB Thiamine HCl 100 mg DAILY PO 02/07/25 10:00 02/17/25 10:15 100 MG Folic Acid 1 mg DAILY PO 02/07/25 10:00 02/17/25 10:15 1 MG Lorazepam 1 mg Q2HP PRN IV 02/06/25 12:15 Hydralazine HCl 10 mg Q4HP PRN IV 02/08/25 09:15 02/13/25 21:52 10 MG Ceftriaxone Sodium/Dextrose 50 ml @ 50 mls/hr DAILY IV 02/11/25 10:00 02/17/25 10:13 50 MLS/HR Metronidazole 500 mg Q8HR PO 02/10/25 14:00 02/17/25 22:33 500 MG Sodium Chloride 10 ml QSHIFT@10,22 IV 02/10/25 22:00 02/17/25 22:34 10 ML Nicotine 1 patch DAILY TD 02/12/25 21:00 02/17/25 10:14 1 PATCH Loperamide HCl 2 mg PRN PRN PO 02/14/25 21:30 02/17/25 10:15 2 MG Morphine Sulfate 2 mg Q4HPRN PRN IV 02/15/25 17:00 02/17/25 17:01 2 MG Acetaminophen/ Hydrocodone Bitart 1 tab Q4HPRN PRN PO 02/15/25 17:00 02/17/25 20:58 1 TAB Vancomycin HCl 100 ml @ 200 mls/hr Q12H IV 02/17/25 01:00 02/17/25 13:00 200 MLS/HR Zinc Acetate/ Diphenhydramine 1 applic Q6HP PRN TOP 02/17/25 11:45 02/17/25 22:34 1 APPLIC Vancomycin HCl 0 ml @ 0 mls/hr UD IV 02/17/25 22:30 UNV Laboratory Results Laboratory Tests 02/07/25 06:43 02/17/25 06:33 Urinalysis Test 02/06/25 07:40 Urine Color Light-yellow (Yellow) Urine Clarity Cloudy (Clear) H Urine pH 6.0 (5.0-9.0) Urine Specific [place] 1.007 (1.001-1.035) Urine Protein 1+ (Negative) H Urine Ketones Negative (Negative) Urine Blood 2+ /uL (Negative) H Urine Nitrite Negative (Negative) Urine Bilirubin Negative (Negative) Urine Urobilinogen Normal mg/dL (Negative) Urine Leukocyte Esterase 3+ /uL (Negative) Urine RBC 48 /hpf (0 - 4) Urine WBC Clumps Present /hpf (None Seen) Urine Microscopic WBC 1624 /HPF (0-5) H Urine Squamous Epithelial Cells None seen /hpf (<5) Urine Bacteria Few /hpf (None Seen) H Urine Glucose Normal mg/dL (Normal) Microbiology Microbiology Date/Time Source Procedure Growth Status 02/07/25 11:42 Foot Left Gram Stain - Final Complete 02/07/25 11:42 Foot Left Wound Culture - Final Complete 02/06/25 07:40 Voided Urine Urine Culture - Final Escherichia coli Complete 02/06/25 06:38 Blood Blood Culture - Final NO GROWTH AFTER 5 DAYS OF INCUBATION. Complete Assessment/Plan Assessment/Plan 1. LEFT FOOT WOUND WITH A CELLULITIS 2. LEFT FOOT OSTEOMYELITIS 3. HYPERTENSION 4. UTI 5. Vaginal discharge Use Benadryl pill or cream for itching on the back. Otherwise continue current antibiotics. Still no [facility] facility bed available for transfer. No changes to present management. Discussed with the patient's nurse regarding care plan. Plan discussed with: Patient My Orders Orders - RAND BOWENS MD Procedure Category Date Status Time Diphenhdramine-Zinc PHA 02/17/25 In Process Cream (Benadryl Crea 11:45 Date of Service: Feb 17, 2025 Billing Provider: RAND BOWENS MD Common Visit Codes: [id number] INP/OBS CARE(MOD) RAND BOWENS MD Feb 17, 2025 22:43
[2025-02-18] VITALS (8 sets, daily range): BP systolic 116–149; BP diastolic 65–82; PULSE 62–78; RESP 15–18; TEMP 97.6–98; O2SAT 96–99
[2025-02-18] MEDS: VANCOMYCIN 750MG KIT 100 ML IV SCH (13:09)
--- NOTE | 2025-02-18 17:52 | DVHPN2 ---
Subjective 69-year-old female with a known history of chronic left foot wound here for osteomyelitis , status post PICC line currently on IV antibiotics including vancomycin and Rocephin. Patient's has been waiting for the SNF placement for so many days now. Changes from previous H/P or p: No Changes Musculoskeletal: foot pain (left) Skin: Lesions (left foot) Objective Vitals Vital Signs Date Time Temp Pulse Resp B/P (MAP) Pulse Ox O2 Delivery O2 Flow Rate FiO2 02/18/25 16:37 97.8 65 16 140/77 (98) 99 97.8 02/18/25 08:00 Room Air* 0 21 Intake/Output Intake and Output 02/18/25 07:00 Intake Total 1945 ml Output Total 600 ml Balance 1345 ml Intake Oral 1695 ml IV Total 250 ml Output Urine Total 600 ml # Voids 7 Exam HEENT PUPILS ARE REACTIVE NECK IS SUPPLE CV IS S1-S2 REGULAR RATE AND RHYTHM RESPIRATORY DIMINISHED BREATH SOUNDS BASES GI POSITIVE BOWEL SOUND EXTREMITY NO EDEMA MRI ASSISTANT NO MOTOR DEFICIT LEFT FOOT HAS A ANTISEPTIC DRESSING. Medications Current Medications Medications Dose Ordered Sig/Otny Route Start Time Stop Time Status Last Admin Dose Admin Cefepime HCl 50 ml @ 12.5 mls/hr Q8HR IV 02/06/25 14:00 UNV Ondansetron HCl 4 mg Q4HP PRN IV 02/06/25 12:15 02/16/25 06:54 4 MG Docusate Sodium 100 mg BIDPRN PRN PO 02/06/25 12:15 Acetaminophen 650 mg Q6HP PRN PO 02/06/25 12:15 Metoprolol Tartrate 25 mg BID PO 02/06/25 22:00 02/18/25 09:53 25 MG Multivitamins 1 tab DAILY PO 02/07/25 10:00 02/18/25 09:53 1 TAB Thiamine HCl 100 mg DAILY PO 02/07/25 10:00 02/18/25 09:53 100 MG Folic Acid 1 mg DAILY PO 02/07/25 10:00 02/18/25 09:52 1 MG Lorazepam 1 mg Q2HP PRN IV 02/06/25 12:15 Hydralazine HCl 10 mg Q4HP PRN IV 02/08/25 09:15 02/13/25 21:52 10 MG Ceftriaxone Sodium/Dextrose 50 ml @ 50 mls/hr DAILY IV 02/11/25 10:00 02/18/25 09:54 50 MLS/HR Metronidazole 500 mg Q8HR PO 02/10/25 14:00 02/18/25 13:09 500 MG Sodium Chloride 10 ml QSHIFT@10,22 IV 02/10/25 22:00 02/18/25 09:54 10 ML Nicotine 1 patch DAILY TD 02/12/25 21:00 02/18/25 09:54 1 PATCH Loperamide HCl 2 mg PRN PRN PO 02/14/25 21:30 02/18/25 09:53 2 MG Morphine Sulfate 2 mg Q4HPRN PRN IV 02/15/25 17:00 02/18/25 15:42 2 MG Acetaminophen/ Hydrocodone Bitart 1 tab Q4HPRN PRN PO 02/15/25 17:00 02/18/25 08:26 1 TAB Zinc Acetate/ Diphenhydramine 1 applic Q6HP PRN TOP 02/17/25 11:45 02/18/25 15:44 1 APPLIC Vancomycin HCl 0 ml @ 0 mls/hr UD IV 02/17/25 22:30 Vancomycin HCl 100 ml @ 100 mls/hr Q12H IV 02/18/25 13:00 02/18/25 13:09 100 MLS/HR Laboratory Results Laboratory Tests 02/07/25 06:43 02/17/25 06:33 Urinalysis Test 02/06/25 07:40 Urine Color Light-yellow (Yellow) Urine Clarity Cloudy (Clear) H Urine pH 6.0 (5.0-9.0) Urine Specific [place] 1.007 (1.001-1.035) Urine Protein 1+ (Negative) H Urine Ketones Negative (Negative) Urine Blood 2+ /uL (Negative) H Urine Nitrite Negative (Negative) Urine Bilirubin Negative (Negative) Urine Urobilinogen Normal mg/dL (Negative) Urine Leukocyte Esterase 3+ /uL (Negative) Urine RBC 48 /hpf (0 - 4) Urine WBC Clumps Present /hpf (None Seen) Urine Microscopic WBC 1624 /HPF (0-5) H Urine Squamous Epithelial Cells None seen /hpf (<5) Urine Bacteria Few /hpf (None Seen) H Urine Glucose Normal mg/dL (Normal) Microbiology Microbiology Date/Time Source Procedure Growth Status 02/07/25 11:42 Foot Left Gram Stain - Final Complete 02/07/25 11:42 Foot Left Wound Culture - Final Complete 02/06/25 07:40 Voided Urine Urine Culture - Final Escherichia coli Complete 02/06/25 06:38 Blood Blood Culture - Final NO GROWTH AFTER 5 DAYS OF INCUBATION. Complete Assessment/Plan Assessment/Plan 69-YEAR-OLD FEMALE WITH A KNOWN HISTORY OF HYPERTENSION INITIALLY PRESENTED TO HOSPITAL WITH A LEFT FOOT WOUND FOUND TO HAVE 1. LEFT FOOT WOUND WITH CELLULITIS 2. LEFT FOOT OSTEOMYELITIS 3. HYPERTENSION 4. UTI -arrange IV ANTIBIOTICS for 4weeks last date , INFECTIOUS DISEASE CONSULTATION appreciated. -Foot WOUND CARE -DVT GI prophylaxis, pain meds -physical therapy evaluation and treatment Plan discussed with: Patient My Orders Orders - MAHIN ARNOLD MD Procedure Category Date Status Time Basic Metabolic Panel LAB 02/19/25 Verified 06:00 Complete Blood Count LAB 02/19/25 Verified 06:00 Magnesium LAB 02/19/25 Verified 06:00 Date of Service: Feb 18, 2025 Billing Provider: MAHIN ARNOLD MD Common Visit Codes: [id number] INP/OBS CARE(MOD) MAHIN ARNOLD MD Feb 18, 2025 17:52
[2025-02-18] MEDS: ENOXAPARIN SOD 40 MG/0.4 ML SYRINGE SC ONE (18:14)
[2025-02-19] VITALS (8 sets, daily range): BP systolic 122–140; BP diastolic 64–88; PULSE 50–70; RESP 12–18; TEMP 97.8–98.6; O2SAT 94–98
[2025-02-19 06:59] LABS: Hematocrit 34.2 % (36.0-46.0); Hemoglobin 11.7 g/dL (12.2-16.2); Mean Corpuscular Hemoglobin 31.7 pg (28.0-32.0); Mean Corpuscular Volume 92.5 fL (80.0-100.0)
[2025-02-19 07:08] LABS: Chloride 103 mmol/L (98-107); Potassium 4.0 mmol/L (3.5-5.1); Sodium 137 mmol/L (136-145)
[2025-02-19 07:09] LABS: Anion Gap 5 (5-15); Calcium 9.8 mg/dL (8.7-10.4); Carbon Dioxide 29 mmol/L (20-31)
[2025-02-19 07:14] LABS: BUN/Creatinine Ratio 17.2 (10.0-20.0); Blood Urea Nitrogen 11 mg/dL (9-23); Glucose 79 mg/dL (74-106)
[2025-02-19 07:15] LABS: Magnesium 1.8 mg/dL (1.6-2.6)
[2025-02-19 07:50] LABS: Total Cells Counted 100.0 (100)
--- NOTE | 2025-02-19 14:01 | DVHPN2 ---
Subjective 69-year-old female with a known history of chronic left foot wound here for osteomyelitis , status post PICC line currently on IV antibiotics including vancomycin and Rocephin. Patient's has been waiting for the SNF placement for so many days now. Changes from previous H/P or p: No Changes Musculoskeletal: foot pain (left) Skin: Lesions (left foot) Objective Vitals Vital Signs Date Time Temp Pulse Resp B/P (MAP) Pulse Ox O2 Delivery O2 Flow Rate FiO2 02/19/25 13:00 98.1 70 18 122/88 (99) 97 98.1 02/19/25 08:00 Room Air* 0 21 Intake/Output Intake and Output 02/19/25 07:00 Intake Total 1345 ml Output Total 500 ml Balance 845 ml Intake Oral 1095 ml IV Total 250 ml Output Urine Total 500 ml # Voids 55 # Bowel Movements 1 Exam HEENT PUPILS ARE REACTIVE NECK IS SUPPLE CV IS S1-S2 REGULAR RATE AND RHYTHM RESPIRATORY DIMINISHED BREATH SOUNDS BASES GI POSITIVE BOWEL SOUND EXTREMITY NO EDEMA ANIMAL ECOLOGIST NO MOTOR DEFICIT LEFT FOOT HAS A ANTISEPTIC DRESSING. Medications Current Medications Medications Dose Ordered Sig/Tnoy Route Start Time Stop Time Status Last Admin Dose Admin Cefepime HCl 50 ml @ 12.5 mls/hr Q8HR IV 02/06/25 14:00 UNV Ondansetron HCl 4 mg Q4HP PRN IV 02/06/25 12:15 02/16/25 06:54 4 MG Docusate Sodium 100 mg BIDPRN PRN PO 02/06/25 12:15 Acetaminophen 650 mg Q6HP PRN PO 02/06/25 12:15 Metoprolol Tartrate 25 mg BID PO 02/06/25 22:00 02/19/25 09:04 25 MG Multivitamins 1 tab DAILY PO 02/07/25 10:00 02/19/25 09:04 1 TAB Thiamine HCl 100 mg DAILY PO 02/07/25 10:00 02/19/25 09:04 100 MG Folic Acid 1 mg DAILY PO 02/07/25 10:00 02/19/25 09:04 1 MG Lorazepam 1 mg Q2HP PRN IV 02/06/25 12:15 Hydralazine HCl 10 mg Q4HP PRN IV 02/08/25 09:15 02/13/25 21:52 10 MG Ceftriaxone Sodium/Dextrose 50 ml @ 50 mls/hr DAILY IV 02/11/25 10:00 02/19/25 09:03 50 MLS/HR Metronidazole 500 mg Q8HR PO 02/10/25 14:00 02/19/25 05:26 500 MG Sodium Chloride 10 ml QSHIFT@10,22 IV 02/10/25 22:00 02/19/25 09:15 10 ML Nicotine 1 patch DAILY TD 02/12/25 21:00 02/19/25 09:05 1 PATCH Loperamide HCl 2 mg PRN PRN PO 02/14/25 21:30 02/18/25 09:53 2 MG Morphine Sulfate 2 mg Q4HPRN PRN IV 02/15/25 17:00 02/19/25 05:26 2 MG Acetaminophen/ Hydrocodone Bitart 1 tab Q4HPRN PRN PO 02/15/25 17:00 02/19/25 09:15 1 TAB Zinc Acetate/ Diphenhydramine 1 applic Q6HP PRN TOP 02/17/25 11:45 02/18/25 22:53 1 APPLIC Vancomycin HCl 0 ml @ 0 mls/hr UD IV 02/17/25 22:30 Vancomycin HCl 100 ml @ 100 mls/hr Q12H IV 02/18/25 13:00 02/19/25 13:05 100 MLS/HR Enoxaparin Sodium 40 mg DAILY@1800 SC 02/19/25 18:00 Laboratory Results Laboratory Tests 02/19/25 05:23 Chemistry Test 02/19/25 05:23 Calcium Level 9.8 mg/dL (8.7-10.4) Magnesium Level 1.8 mg/dL (1.6-2.6) Urinalysis Test 02/06/25 07:40 Urine Color Light-yellow (Yellow) Urine Clarity Cloudy (Clear) H Urine pH 6.0 (5.0-9.0) Urine Specific [place] 1.007 (1.001-1.035) Urine Protein 1+ (Negative) H Urine Ketones Negative (Negative) Urine Blood 2+ /uL (Negative) H Urine Nitrite Negative (Negative) Urine Bilirubin Negative (Negative) Urine Urobilinogen Normal mg/dL (Negative) Urine Leukocyte Esterase 3+ /uL (Negative) Urine RBC 48 /hpf (0 - 4) Urine WBC Clumps Present /hpf (None Seen) Urine Microscopic WBC 1624 /HPF (0-5) H Urine Squamous Epithelial Cells None seen /hpf (<5) Urine Bacteria Few /hpf (None Seen) H Urine Glucose Normal mg/dL (Normal) Microbiology Microbiology Date/Time Source Procedure Growth Status 02/07/25 11:42 Foot Left Gram Stain - Final Complete 02/07/25 11:42 Foot Left Wound Culture - Final Complete 02/06/25 07:40 Voided Urine Urine Culture - Final Escherichia coli Complete 02/06/25 06:38 Blood Blood Culture - Final NO GROWTH AFTER 5 DAYS OF INCUBATION. Complete Assessment/Plan Assessment/Plan 69-YEAR-OLD FEMALE WITH A KNOWN HISTORY OF HYPERTENSION INITIALLY PRESENTED TO HOSPITAL WITH A LEFT FOOT WOUND FOUND TO HAVE 1. LEFT FOOT WOUND WITH CELLULITIS 2. LEFT FOOT OSTEOMYELITIS 3. HYPERTENSION 4. UTI -arrange IV ANTIBIOTICS for 4weeks last date , INFECTIOUS DISEASE CONSULTATION appreciated. -Foot WOUND CARE -DVT GI prophylaxis, pain meds -physical therapy evaluation and treatment Plan discussed with: Other (Patient's bedside RN.) My Orders Orders - MAHIN ARNOLD MD Procedure Category Date Status Time Enoxaparin Sodium PHA 02/19/25 In Process (Lovenox) 18:00 Date of Service: Feb 19, 2025 Billing Provider: MAHIN ARNOLD MD Common Visit Codes: [id number] INP/OBS CARE(MOD) MAHIN ARNOLD MD Feb 19, 2025 14:01
[2025-02-19] MEDS: ENOXAPARIN SOD 40 MG/0.4 ML SYRINGE SC SCH (18:00)
[2025-02-19] MEDS: diphenhdrAMINE HCL 25 MG CAP PO PRN (19:23)
[2025-02-20] VITALS (8 sets, daily range): BP systolic 127–159; BP diastolic 63–87; PULSE 61–74; RESP 16–18; TEMP 97.7–98.6; O2SAT 97–100
[2025-02-20] MEDS ORDERED: VANCOMYCIN 1GM/200ML PM 200 ML IV SCH (13:00)
[2025-02-20] MEDS: VANCOMYCIN 1GM/250ML KIT 250 ML IV SCH (13:52)
--- NOTE | 2025-02-20 16:13 | DVHPN2 ---
Subjective 69-year-old female with a known history of chronic left foot wound here for osteomyelitis , status post PICC line currently on IV antibiotics including vancomycin and Rocephin. Patient's has been waiting for the SNF placement for so many days now. 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 Medications Current Medications Medications Dose Ordered Sig/Otny Route Start Time Stop Time Status Last Admin Dose Admin Cefepime HCl 50 ml @ 12.5 mls/hr Q8HR IV 02/06/25 14:00 UNV Ondansetron HCl 4 mg Q4HP PRN IV 02/06/25 12:15 02/16/25 06:54 4 MG Docusate Sodium 100 mg BIDPRN PRN PO 02/06/25 12:15 Acetaminophen 650 mg Q6HP PRN PO 02/06/25 12:15 Metoprolol Tartrate 25 mg BID PO 02/06/25 22:00 02/20/25 08:46 25 MG Multivitamins 1 tab DAILY PO 02/07/25 10:00 02/20/25 08:46 1 TAB Thiamine HCl 100 mg DAILY PO 02/07/25 10:00 02/20/25 08:46 100 MG Folic Acid 1 mg DAILY PO 02/07/25 10:00 02/20/25 08:46 1 MG Lorazepam 1 mg Q2HP PRN IV 02/06/25 12:15 Hydralazine HCl 10 mg Q4HP PRN IV 02/08/25 09:15 02/13/25 21:52 10 MG Ceftriaxone Sodium/Dextrose 50 ml @ 50 mls/hr DAILY IV 02/11/25 10:00 02/20/25 08:46 50 MLS/HR Metronidazole 500 mg Q8HR PO 02/10/25 14:00 02/20/25 14:10 500 MG Sodium Chloride 10 ml QSHIFT@10,22 IV 02/10/25 22:00 02/20/25 08:47 10 ML Nicotine 1 patch DAILY TD 02/12/25 21:00 02/20/25 08:47 1 PATCH Loperamide HCl 2 mg PRN PRN PO 02/14/25 21:30 02/18/25 09:53 2 MG Morphine Sulfate 2 mg Q4HPRN PRN IV 02/15/25 17:00 02/20/25 08:48 2 MG Acetaminophen/ Hydrocodone Bitart 1 tab Q4HPRN PRN PO 02/15/25 17:00 02/20/25 13:20 1 TAB Zinc Acetate/ Diphenhydramine 1 applic Q6HP PRN TOP 02/17/25 11:45 02/18/25 22:53 1 APPLIC Vancomycin HCl 0 ml @ 0 mls/hr UD IV 02/17/25 22:30 Enoxaparin Sodium 40 mg DAILY@1800 SC 02/19/25 18:00 Diphenhydramine HCl 50 mg Q6HP PRN PO 02/19/25 19:00 02/19/25 19:23 50 MG Vancomycin HCl 200 ml @ 200 mls/hr Q12H IV 02/20/25 13:00 Cancel Vancomycin HCl 250 ml @ 250 mls/hr Q12H IV 02/20/25 13:00 02/20/25 13:52 250 MLS/HR Laboratory Results Laboratory Tests 02/19/25 05:23 02/20/25 00:30 Urinalysis Test 02/06/25 07:40 Urine Color Light-yellow (Yellow) Urine Clarity Cloudy (Clear) H Urine pH 6.0 (5.0-9.0) Urine Specific [place] 1.007 (1.001-1.035) Urine Protein 1+ (Negative) H Urine Ketones Negative (Negative) Urine Blood 2+ /uL (Negative) H Urine Nitrite Negative (Negative) Urine Bilirubin Negative (Negative) Urine Urobilinogen Normal mg/dL (Negative) Urine Leukocyte Esterase 3+ /uL (Negative) Urine RBC 48 /hpf (0 - 4) Urine WBC Clumps Present /hpf (None Seen) Urine Microscopic WBC 1624 /HPF (0-5) H Urine Squamous Epithelial Cells None seen /hpf (<5) Urine Bacteria Few /hpf (None Seen) H Urine Glucose Normal mg/dL (Normal) Microbiology Microbiology Date/Time Source Procedure Growth Status 02/07/25 11:42 Foot Left Gram Stain - Final Complete 02/07/25 11:42 Foot Left Wound Culture - Final Complete 02/06/25 07:40 Voided Urine Urine Culture - Final Escherichia coli Complete 02/06/25 06:38 Blood Blood Culture - Final NO GROWTH AFTER 5 DAYS OF INCUBATION. Complete Assessment/Plan Assessment/Plan 69-YEAR-OLD FEMALE WITH A KNOWN HISTORY OF HYPERTENSION INITIALLY PRESENTED TO HOSPITAL WITH A LEFT FOOT WOUND FOUND TO HAVE 1. LEFT FOOT WOUND WITH CELLULITIS 2. LEFT FOOT OSTEOMYELITIS 3. HYPERTENSION 4. UTI-arrange IV ANTIBIOTICS for 4weeks last date , INFECTIOUS DISEASE CONSULTATION appreciated. -Foot WOUND CARE -DVT GI prophylaxis, pain meds -physical therapy evaluation and treatment Plan discussed with: Patient My Orders Orders - MAHIN ARNOLD MD Procedure Category Date Status Time Diphenhdramine PHA 02/19/25 In Process Capsule (Benadryl 19:00 Date of Service: Feb 20, 2025 Billing Provider: MAHIN ARNOLD MD Common Visit Codes: [id number] INP/OBS CARE(MOD) MAHIN ARNOLD MD Feb 20, 2025 16:13
[2025-02-21] VITALS (8 sets, daily range): BP systolic 116–158; BP diastolic 64–81; PULSE 60–78; RESP 16–20; TEMP 97.7–98.3; O2SAT 98–100
[2025-02-21] MEDS ORDERED: HYDR-4902 PO (12:49)
--- NOTE | 2025-02-21 13:05 | DVHDS2 ---
Discharge Summary Date of Admission Feb 06, 2025 at 12:03 Date of Discharge: Feb 14, 2025 Labs/Diagnostic Data: Laboratory Results Test 02/21/25 06:43 02/20/25 00:30 02/19/25 05:23 02/17/25 06:33 Creatinine 0.62 mg/dL (0.550-1.02) Glomerular Filtration Rate Calc 97 mL/min (>90) Vancomycin Level Trough 13.7 ug/mL (5-10) White Blood Count 4.7 10^3/uL (4.4-10.8) Red Blood Count 3.69 10^6/uL (4.0-5.20) Hemoglobin 11.7 g/dL (12.2-16.2) Hematocrit 34.2 % (36.0-46.0) Mean Corpuscular Volume 92.5 fL (80.0-100.0) Mean Corpuscular Hemoglobin 31.7 pg (28.0-32.0) Mean Corpuscular Hemoglobin Concent 34.3 g/dL (32.0-36.0) Red Cell Distribution Width 13.5 % (11.8-14.3) Platelet Count 340 10^3/uL (140-450) Mean Platelet Volume 6.8 fL (6.9-10.8) Neutrophils (%) (Auto) % (37.0-80.0) Lymphocytes (%) (Auto) % (10.0-50.0) Monocytes (%) (Auto) % (0.0-12.0) Eosinophils (%) (Auto) % (0.0-7.0) Basophils (%) (Auto) % (0.0-2.0) Neutrophils # (Auto) 10 ^3/uL (1.6-8.6) Lymphocytes # (Auto) 10 ^3/uL (0.4-5.4) Monocytes # (Auto) 10 ^3/uL (0-1.3) Differential Total Cells Counted 100.0 (100) Neutrophils % (Manual) 58 (37.0-80.0) Band Neutrophils % (Manual) 2 Lymphocytes % (Manual) 20 (10.0-50.0) Monocytes % (Manual) 3 (0-12) Eosinophils % (Manual) 17 (0-7) Basophils % (Manual) 0 (0.0-2.0) Metamyelocytes % (manual) 0 Myelocytes % (Manual) 0 Promyelocytes % (Manual) 0 Blast Cells % (Manual) 0 Reactive Lymphocytes 0 Platelet Estimate Adequate Sodium Level 137 mmol/L (136-145) Potassium Level 4.0 mmol/L (3.5-5.1) Chloride Level 103 mmol/L (98-107) Carbon Dioxide Level 29 mmol/L (20-31) Anion Gap 5 (5-15) Blood Urea Nitrogen 11 mg/dL (9-23) BUN/Creatinine Ratio 17.2 (10.0-20.0) Serum Glucose 79 mg/dL (74-106) Calcium Level 9.8 mg/dL (8.7-10.4) Magnesium Level 1.8 mg/dL (1.6-2.6) Red Blood Cell Morphology Normal Test 02/15/25 11:05 02/15/25 06:13 02/11/25 09:03 02/10/25 13:56 Erythrocyte Sedimentation Rate 44 mm/hr (0-20) C-Reactive Protein High Sensitivity 0.92 mg/dL (<1.0) Eosinophils # (Auto) 0.7 10 ^3/uL (0-0.8) Basophils # (Auto) 0 10 ^3/uL (0-0.2) Nucleated Red Blood Cells 0.1 % Prothrombin Time 11.0 sec (9.3-11.8) Prothrombin Time INR 1.04 (0.9-1.15) Activated Partial Thromboplast Time 30.0 SEC (24.5-34.5) Test 02/07/25 06:43 02/06/25 07:40 02/06/25 06:38 Total Bilirubin 0.5 mg/dL (0.2-1.0) Aspartate Amino Transferase (AST) 18 U/L (13-40) Alanine Aminotransferase (ALT) < 9 U/L (7-40) Alkaline Phosphatase 72 U/L (46-116) Total Protein 6.5 g/dL (5.7-8.2) Albumin 4.1 g/dL (3.2-4.8) Urine Color Light-yellow (Yellow) Urine Clarity Cloudy (Clear) Urine pH 6.0 (5.0-9.0) Urine Specific [place] 1.007 (1.001-1.035) Urine Protein 1+ (Negative) Urine Ketones Negative (Negative) Urine Blood 2+ /uL (Negative) Urine Nitrite Negative (Negative) Urine Bilirubin Negative (Negative) Urine Urobilinogen Normal mg/dL (Negative) Urine Leukocyte Esterase 3+ /uL (Negative) Urine RBC 48 /hpf (0 - 4) Urine WBC Clumps Present /hpf (None Seen) Urine Microscopic WBC 1624 /HPF (0-5) Urine Squamous Epithelial Cells None seen /hpf (<5) Urine Bacteria Few /hpf (None Seen) Urine Glucose Normal mg/dL (Normal) Lactic Acid Level 0.8 mmol/L (0.4-2.0) Other Laboratory Tests 02/21/25 06:43 02/19/25 05:23 Brief Hx & Hospital Course: 69-YEAR-OLD FEMALE WITH A KNOWN HISTORY OF HYPERTENSION INITIALLY PRESENTED TO HOSPITAL WITH A LEFT FOOT WOUND FOUND TO HAVE left foot wound with cellulitis and left foot osteomyelitis. Patient also found to have UTI as well. Patient was started on IV antibiotics. Initial plan was to send her to group home facility as she can not inject herself antibiotics. Patient lives alone. Insurance did not authorize for any facility for so many days. Patient was given home IV antibiotic teaching and once antibiotics arranged patient can be discharged with a IV antibiotics with a close follow up as an outpatient with the PCP, Podiatry as well as Infectious Disease specialist. Patient is currently understand verbalized understanding and agreeable to plan. Consults/Reason for consult [facility] vancomycin 500mg every 12 hours, goal trough 15-20 ceftriaxone 2g every 24 hours weekly cmp, cbc, sed, crp, vancomycin trough. fax results to [phone] continue until 03/08/25, then remove picc line Condition at Discharge: Stable Final Diagnosis/Problems List 1. LEFT FOOT WOUND WITH A CELLULITIS 2. LEFT FOOT OSTEOMYELITIS 3. HYPERTENSION 4. UTI 5. Vaginal discharge Discharge Disposition: Home with Health Services SNF Discharge Will this Physician continue t: No Discharge Instruct/Medications Diet: Consistent carbohydrate, Cardiac 2g Na,low cholest Activity: See Comment Activity comment: Weight-bearing as tolerated left leg no driving ,no signing of legal documents,no playing on machinery while on narcotics Follow Up/Referral: Infectious Disease Dr. Neil Valle after four weeks and screw machine setter after two weeks for post foot wound care follow up Medications: IV antibiotics via PICC line as ordered per osteomyelitis of the foot and other medications per discharge med reconciliation list New Medications: Hydrocodone-Acetaminophen (Hydrocodone Bitartrate/AC 5-325 mg) 1 Tab Tab 1 TAB PO Q8HP PRN, #14 TAB Metronidazole (Flagyl) 500 Mg Tab 500 MG PO TID for 14 Days, #42 TAB Continued Medications: Metoprolol Tartrate (Metoprolol Tartrate) 25 Mg Tab 1 TAB PO BID, #60 TAB 5 Refills Scheduled Metoprolol Tartrate (Metoprolol Tartrate), 1 TAB PO BID Metronidazole (Flagyl), 500 MG PO TID Scheduled PRN Hydrocodone-Acetaminophen (Hydrocodone Bitartrate/AC 5-325 mg), 1 TAB PO Q8HP PRN Discharge Statement: "Patient was advised to return to the ER or call 911 if any headaches, dizziness, shortness of breath, chest pain, abdominal pain, bleeding, fevers, or worsening of medical condition. Patient was counseled about treatment plan, medications, possible side effects, patientverbalized understanding. All questions were answered to the best of my ability. This discharge took greater then 30 minutes in planning, reviewing documentation, counseling the patient, and discussing with other team members." ASSESSMENT ASSESSMENT Assessment 1. LEFT FOOT WOUND WITH A CELLULITIS 2. LEFT FOOT OSTEOMYELITIS 3. HYPERTENSION 4. UTI 5. Vaginal discharge Date of Service: Feb 21, 2025 Billing Provider: MAHIN ARNOLD MD Common Visit Codes: [id number] DISCH DAY >30min MAHIN ARNOLD MD Feb 21, 2025 13:05
--- NOTE | 2025-02-21 18:25 | DVHPN2 ---
Consult Progress Note Objective vital signs Vital Sign Date Time Temp Pulse Resp B/P (MAP) Pulse Ox O2 Delivery O2 Flow Rate FiO2 02/21/25 17:00 98.0 63 16 154/77 (102) 100 98.0 02/21/25 08:00 Room Air* 0 21 Total Intake and Output 02/20/25 02/20/25 02/21/25 15:00 23:00 07:00 Intake Total 300 ml 900 ml 430 ml Output Total 700 ml Balance 300 ml 200 ml 430 ml medications Current Medications Medications Dose Ordered Sig/Tony Route Start Time Stop Time Status Last Admin Dose Admin Cefepime HCl 50 ml @ 12.5 mls/hr Q8HR IV 02/06/25 14:00 UNV Ondansetron HCl 4 mg Q4HP PRN IV 02/06/25 12:15 02/16/25 06:54 4 MG Docusate Sodium 100 mg BIDPRN PRN PO 02/06/25 12:15 Acetaminophen 650 mg Q6HP PRN PO 02/06/25 12:15 Metoprolol Tartrate 25 mg BID PO 02/06/25 22:00 02/21/25 09:38 25 MG Multivitamins 1 tab DAILY PO 02/07/25 10:00 02/21/25 09:38 1 TAB Thiamine HCl 100 mg DAILY PO 02/07/25 10:00 02/21/25 09:38 100 MG Folic Acid 1 mg DAILY PO 02/07/25 10:00 02/21/25 09:38 1 MG Lorazepam 1 mg Q2HP PRN IV 02/06/25 12:15 Hydralazine HCl 10 mg Q4HP PRN IV 02/08/25 09:15 02/13/25 21:52 10 MG Ceftriaxone Sodium/Dextrose 50 ml @ 50 mls/hr DAILY IV 02/11/25 10:00 02/21/25 09:38 50 MLS/HR Metronidazole 500 mg Q8HR PO 02/10/25 14:00 02/21/25 13:55 500 MG Sodium Chloride 10 ml QSHIFT@10,22 IV 02/10/25 22:00 02/21/25 09:38 10 ML Nicotine 1 patch DAILY TD 02/12/25 21:00 02/21/25 09:39 1 PATCH Loperamide HCl 2 mg PRN PRN PO 02/14/25 21:30 02/18/25 09:53 2 MG Morphine Sulfate 2 mg Q4HPRN PRN IV 02/15/25 17:00 02/21/25 13:55 2 MG Acetaminophen/ Hydrocodone Bitart 1 tab Q4HPRN PRN PO 02/15/25 17:00 02/21/25 10:19 1 TAB Zinc Acetate/ Diphenhydramine 1 applic Q6HP PRN TOP 02/17/25 11:45 02/18/25 22:53 1 APPLIC Vancomycin HCl 0 ml @ 0 mls/hr UD IV 02/17/25 22:30 Enoxaparin Sodium 40 mg DAILY@1800 SC 02/19/25 18:00 Diphenhydramine HCl 50 mg Q6HP PRN PO 02/19/25 19:00 02/19/25 19:23 50 MG Vancomycin HCl 200 ml @ 200 mls/hr Q12H IV 02/20/25 13:00 Cancel Vancomycin HCl 250 ml @ 250 mls/hr Q12H IV 02/20/25 13:00 02/21/25 13:10 250 MLS/HR laboratory and microbiology Laboratory Tests 02/21/25 06:43 02/19/25 05:23 Test 02/19/25 05:23 Range/Units Serum Glucose 79 74-106 mg/dL Problem List/Assessment/Plan Problem List/Assessment/Plan ASSESSMENT AND PLAN: ID Problem List: \-- Left dorsal foot ulcer, chronic \-- Suspected cellulitis \-- Possible osteomyelitis (MRI interpretation uncertain) \-- Edema of left lower extremity \-- Hypertension \-- Alcohol abuse Assessment This is a 69 y.o. female with a history of hypertension and alcohol abuse who presents with a chronic, persistent ulcer of the dorsal aspect of the left foot since October. The wound has been progressively worsening, becoming erythematous, swollen, tender, and is now limiting ambulation. She has received ongoing wound care and oral antibiotics; however, symptoms persist. On exam, she has left leg edema and an open ulcer with purulent drainage. Laboratory findings include pyuria and leukocyte esterase in urine, but otherwise unremarkable labs (WBC 6.9, Hgb 11.9, platelets 427). Lactic acid 0.8. Creatinine 6.8. Cultures have grown mello-sensitive E. coli and wound cultures show diphtheroids. Imaging: -Chest X-ray: Unremarkable. -X-ray, CT of left foot: No acute fracture, evidence of osseous demineralization, soft tissue swelling and ulceration consistent with cellulitis. -MRI Foot: Reported concern for osteomyelitis though clinician notes no enhancement on imaging; diagnostic certainty is questioned. Hemoglobin A1c in October 2024 was 5.4 (not suggestive of diabetes). The patient has good pulses in the legs. Chronicity of the wound may relate to offloading/pressure rather than vascular or glycemic etiology. 02/09: Agree with Dr. Little's wound care recommendations . patient needs offloading of the foot and care at home 02/10: wound vac is now recommended by Dr. Little . wound has a large opening however drainage appears less and the boarders of the ulcer appears less cellulitic. wound cultures are unrevealing of any true infection , suspect their may be an underlying poor vascular flow causing decreasing sensation in foot and poor wound healing 02/11: arterial duplex: No hemodynamically significant stenosis. Atherosclerosis appears mild. The dorsal pedal artery was not evaluated due to overlying bandages. 3: agree with transfer to SNF 02/13: leg edema appears to be improving 8: unclear if report of foot MRI findings is osteomyelitis , suspicion there may be an alternative explanation for findings on imaging . will discuss with radiology 02/15: ambulating with a walker 02/16: vancomycin troth is subtherapeutic and needs to be redosed 02/17: tolerating current antibiotic regimen Plan: - discuss with pharmacy to re dose vancomycin to keep troth between 15-20 - check sed rate and CRP - agree with Dr. Reyez wound care recommendations \-- Continue vancomycin and ceftriaxone for 4 weeks given lack of convincing findings on MRI for osteomyelitis infection \-- Consider surgical consultation for possible debridement of dorsal foot ulcer and/or wound vacuum (wound Vac) therapy for enhanced closure \-- If debridement is performed, collect aerobic and anaerobic cultures from the wound \-- Consider holding off on venous Doppler ultrasound unless further clinical concern for venous insufficiency or if clinical course worsens \-- Recommend strict offloading of the affected foot after discharge to promote wound healing \-- Monitor laboratory parameters, especially creatinine (noted elevation) \-- Hemoglobin A1c not suggestive of diabetes; microvascular changes less likely contributor \-- Continue wound care; monitor for signs of progression or systemic infection Isolation Precautions: Standard Dietary Evaluation Review Comments: 1) Jigar 1 pk BID 2) Monitor wound status, I/O, PO intake, lab value Expected Outcomes/Goals: To meet >75% estimated needs Wound to improve Fu 3-5 days ARTURO DELCID MD Feb 21, 2025 18:25
[2025-02-22] VITALS (7 sets, daily range): BP systolic 137–174; BP diastolic 61–91; PULSE 60–71; RESP 16–20; TEMP 97.6–98.4; O2SAT 96–99
[2025-02-22] MEDS: ACETAMINOPHEN 325 MG TAB PO PRN (04:26)
[2025-02-22] MEDS: VANCOMYCIN 1GM/250ML KIT 250 ML IV SCH (13:55)
--- NOTE | 2025-02-22 15:47 | DVHPN2 ---
Subjective 69-year-old female with a known history of chronic left foot wound here for osteomyelitis , status post PICC line currently on IV antibiotics including vancomycin and Rocephin. Patient's has been waiting for the SNF placement for so many days now. Changes from previous H/P or p: No Changes Musculoskeletal: foot pain (left) Skin: Lesions (left foot) Objective Vitals Vital Signs Date Time Temp Pulse Resp B/P (MAP) Pulse Ox O2 Delivery O2 Flow Rate FiO2 02/22/25 13:00 60 137/86 02/22/25 13:00 98.4 16 99 98.4 02/22/25 08:00 Room Air* 0 21 Intake/Output Intake and Output 02/22/25 07:00 Intake Total 1125 ml Balance 1125 ml Intake Oral 825 ml IV Total 300 ml # Voids 4 Exam HEENT PUPILS ARE REACTIVE NECK IS SUPPLE CV IS S1-S2 REGULAR RATE AND RHYTHM RESPIRATORY DIMINISHED BREATH SOUNDS BASES GI POSITIVE BOWEL SOUND EXTREMITY NO EDEMA FACTORY HAND NO MOTOR DEFICIT LEFT FOOT HAS A ANTISEPTIC DRESSING. Medications Current Medications Medications Dose Ordered Sig/Tony Route Start Time Stop Time Status Last Admin Dose Admin Cefepime HCl 50 ml @ 12.5 mls/hr Q8HR IV 02/06/25 14:00 UNV Ondansetron HCl 4 mg Q4HP PRN IV 02/06/25 12:15 02/16/25 06:54 4 MG Docusate Sodium 100 mg BIDPRN PRN PO 02/06/25 12:15 Acetaminophen 650 mg Q6HP PRN PO 02/06/25 12:15 02/22/25 04:26 650 MG Metoprolol Tartrate 25 mg BID PO 02/06/25 22:00 02/22/25 10:13 25 MG Multivitamins 1 tab DAILY PO 02/07/25 10:00 02/22/25 10:12 1 TAB Thiamine HCl 100 mg DAILY PO 02/07/25 10:00 02/22/25 10:12 100 MG Folic Acid 1 mg DAILY PO 02/07/25 10:00 02/22/25 10:12 1 MG Lorazepam 1 mg Q2HP PRN IV 02/06/25 12:15 Hydralazine HCl 10 mg Q4HP PRN IV 02/08/25 09:15 02/13/25 21:52 10 MG Sodium Chloride 10 ml QSHIFT@10,22 IV 02/10/25 22:00 02/22/25 10:13 10 ML Nicotine 1 patch DAILY TD 02/12/25 21:00 02/22/25 10:12 1 PATCH Loperamide HCl 2 mg PRN PRN PO 02/14/25 21:30 02/18/25 09:53 2 MG Morphine Sulfate 2 mg Q4HPRN PRN IV 02/15/25 17:00 02/22/25 06:18 2 MG Acetaminophen/ Hydrocodone Bitart 1 tab Q4HPRN PRN PO 02/15/25 17:00 02/22/25 13:55 1 TAB Zinc Acetate/ Diphenhydramine 1 applic Q6HP PRN TOP 02/17/25 11:45 02/18/25 22:53 1 APPLIC Vancomycin HCl 0 ml @ 0 mls/hr UD IV 02/17/25 22:30 Enoxaparin Sodium 40 mg DAILY@1800 SC 02/19/25 18:00 Diphenhydramine HCl 50 mg Q6HP PRN PO 02/19/25 19:00 02/19/25 19:23 50 MG Vancomycin HCl 200 ml @ 200 mls/hr Q12H IV 02/20/25 13:00 Cancel Vancomycin HCl 250 ml @ 250 mls/hr Q12H IV 02/22/25 13:00 02/22/25 13:55 250 MLS/HR Ceftriaxone Sodium/Dextrose 50 ml @ 50 mls/hr DAILY IV 02/23/25 10:00 Laboratory Results Laboratory Tests 02/19/25 05:23 02/22/25 06:40 Urinalysis Test 02/06/25 07:40 Urine Color Light-yellow (Yellow) Urine Clarity Cloudy (Clear) H Urine pH 6.0 (5.0-9.0) Urine Specific [place] 1.007 (1.001-1.035) Urine Protein 1+ (Negative) H Urine Ketones Negative (Negative) Urine Blood 2+ /uL (Negative) H Urine Nitrite Negative (Negative) Urine Bilirubin Negative (Negative) Urine Urobilinogen Normal mg/dL (Negative) Urine Leukocyte Esterase 3+ /uL (Negative) Urine RBC 48 /hpf (0 - 4) Urine WBC Clumps Present /hpf (None Seen) Urine Microscopic WBC 1624 /HPF (0-5) H Urine Squamous Epithelial Cells None seen /hpf (<5) Urine Bacteria Few /hpf (None Seen) H Urine Glucose Normal mg/dL (Normal) Microbiology Microbiology Date/Time Source Procedure Growth Status 02/07/25 11:42 Foot Left Gram Stain - Final Complete 02/07/25 11:42 Foot Left Wound Culture - Final Complete 02/06/25 07:40 Voided Urine Urine Culture - Final Escherichia coli Complete 02/06/25 06:38 Blood Blood Culture - Final NO GROWTH AFTER 5 DAYS OF INCUBATION. Complete Assessment/Plan Assessment/Plan 69-YEAR-OLD FEMALE WITH A KNOWN HISTORY OF HYPERTENSION INITIALLY PRESENTED TO HOSPITAL WITH A LEFT FOOT WOUND FOUND TO HAVE 1. LEFT FOOT WOUND WITH CELLULITIS 2. LEFT FOOT OSTEOMYELITIS 3. HYPERTENSION 4. UTI-arrange IV ANTIBIOTICS for 4weeks last date , INFECTIOUS DISEASE CONSULTATION appreciated. -Foot WOUND CARE -DVT GI prophylaxis, pain meds -physical therapy evaluation and treatment -social welfare research worker consultation for home health home IV antibiotics arrangement. Plan discussed with: Other (Bedside RN.) Date of Service: Feb 22, 2025 Billing Provider: MAHIN ARNOLD MD Common Visit Codes: [id number] INP/OBS CARE(MOD) MAHIN ARNOLD MD Feb 22, 2025 15:47
[2025-02-23] MEDS ORDERED: cefTRIAXone 2GM/50ML D5W 50 ML IV SCH (10:00)
[2025-02-24] MEDS ORDERED: METR-344 PO (12:50)
== END 2025-02-22 18:30 | disposition home health service (06) | DRG 540 ==
LOC: ER 06:01 → EDBD 06:01 → OVERFLOW 12:03 → WEST WING 21:22
PROVIDERS: ADMIT Hospitalist; ATTEND Hospitalist
PROC: 02HV33Z Insertion of Infusion Device into Superior Vena Cava, Percutaneous Approach (ICD-10-PCS; principal; 2025-02-10)
PROC: B548ZZA Ultrasonography of Superior Vena Cava, Guidance (ICD-10-PCS; 2025-02-10)
DX: M86.8X7 Other osteomyelitis, ankle and foot (principal); L03.116 Cellulitis of left lower limb; N39.0 Urinary tract infection, site not specified; I10 Essential (primary) hypertension; L97.529 Non-pressure chronic ulcer of other part of left foot with unspecified severity; N89.8 Other specified noninflammatory disorders of vagina; F10.10 Alcohol abuse, uncomplicated; F17.290 Nicotine dependence, other tobacco product, uncomplicated; J44.9 Chronic obstructive pulmonary disease, unspecified; Z79.1 Long term (current) use of non-steroidal anti-inflammatories (NSAID); Z79.2 Long term (current) use of antibiotics; Z79.899 Other long term (current) drug therapy; Z93.3 Colostomy status; Z90.710 Acquired absence of both cervix and uterus; Z82.49 Family history of ischemic heart disease and other diseases of the circulatory system; Y90.9 Presence of alcohol in blood, level not specified
CPT/HCPCS: 36415; 36569; 71045; 73630; 73700; 73718; 76937; 80048; 80053; 80202; 81001; 82565; 83605; 83735; 85007; 85025; 85027; 85610; 85652; 85730; 86141; 87040; 87086; 87088; 87186; 87205; 93926; 96365; 96375; 97110; 97163; 97530; G0378; J1642; J2405; J3490